=== PATIENT | male | born 1955 | race Caucasian/White ===

== ENCOUNTER → 2017-03-28 | Outpatient (CLI) | payer BC ==
--- NOTE | 2017-03-28 15:33 | RADIOLOGY REPORT (SQ) ---
EXAM DESCRIPTION: CT ABD/PELVIS COMBO COMPLETED DATE/TIME: 03/28/2017 2:35 pm REASON FOR STUDY: HEMATURIA, NEOPLASM BLADDER R31.9 HEMATURIA, UNSPECIFIED D49.4 NEOPLASM OF UNSPE CIFIED BEHAVIOR OF BLADDER COMPARISON: None. TECHNIQUE: CT scan of the abdomen and pelvis performed with and without intravenous contrast, and wi thout oral contrast. Contrasted imaging performed helical scanning technique and dynamic intravenous contrast injection. Images reviewed with lung, soft tissue, and bone windows. Reconstructed coronal a nd sagittal MPR images reviewed. Delayed images for evaluation of the urinary system also acquired. A ll images stored on PACS. All CT scanners at this facility use dose modulation, iterative reconstruction, and/or weight based d osing when appropriate to reduce radiation dose to as low as reasonably achievable (ALARA). [facility]: Dose Right [facility]: CareDose [facility]: Dose Right [facility]: Teradose 4D [facility]: LoLo CONTRAST TYPE AND DOSE: contrast/concentration: Isovue 370.00 mg/ml; Total Contrast Delivered: 100.0 ml; Total Saline Delivered: 72.0 ml RENAL FUNCTION: 0.9 creatinine RADIATION DOSE: Up-to-date CT equipment and radiation dose reduction techniques were employed. CTDIv ol: 15.1 - 17.1 mGy. DLP: 2634 mGy-cm. . LIMITATIONS: None. FINDINGS: NON-CONTRASTED IMAGING: Small nonobstructing right intrarenal calculus. 22 mm calculus in left renal pelvis. Smaller but prominent lower calyceal calculi left kidney. POST-CONTRASTED IMAGING: LOWER CHEST: No significant findings. No nodules or infiltrates. LIVER: Normal size. No masses. No dilated ducts. SPLEEN: Normal size. No focal lesions. PANCREAS: No masses. No significant calcifications. No adjacent inflammation or peripancreatic fluid collections. Pancreatic duct not dilated. GALLBLADDER: Surgically absent. ADRENAL GLANDS: No significant masses or asymmetry. RIGHT KIDNEY AND URETER: No solid masses. An intrarenal calculus as described above. No hydroneph rosis or hydroureter. LEFT KIDNEY AND URETER: No solid masses. Intrarenal calculi as described above, including a 22 mm c alculus in the renal pelvis. No hydronephrosis or hydroureter. AORTA AND VESSELS: No aneurysm. Moderate atherosclerosis. RETROPERITONEUM: No retroperitoneal adenopathy, hemorrhage or masses. BOWEL AND PERITONEAL CAVITY: No masses or inflammatory changes. No free fluid or peritoneal masses. APPENDIX: Not identified. PELVIS: The bladder wall is thickened. ABDOMINAL WALL: No masses. No hernias. BONES: Compression changes at L3 present on lumbar spine CT from 2015. No suspicious lesions. OTHER: No other significant finding. IMPRESSION: 1. Renal calculi as described. 2. Thickening of the wall of the bladder. 3. L3 compression changes that are old. TECHNICAL DOCUMENTATION: JOB ID: [id number] Quality ID # [id number]: Final reports with documentation of one or more dose reduction techniques (e.g., Au tomated exposure control, adjustment of the mA and/or kV according to patient size, use of iterative reconstruction technique) 2010 [employer]- All Rights Reserved
== END ==
LOC: RAD 03-23 07:30
PROVIDERS: ATTEND Urology
DX: R31.9 Hematuria, unspecified (principal); D49.4 Neoplasm of unspecified behavior of bladder; N20.0 Calculus of kidney
CPT/HCPCS: 74178; 82565

== ENCOUNTER → 2017-06-19 | Outpatient (CLI) | payer BC ==
--- NOTE | 2017-06-19 09:07 | RADIOLOGY REPORT (SQ) ---
EXAM DESCRIPTION: CT ABD/PELVIS NO ORAL OR IV COMPLETED DATE/TIME: 06/19/2017 7:53 am REASON FOR STUDY: NEOPLASM OF BLADDER (D49.4) N20.0 CALCULUS OF KIDNEY COMPARISON: CT abdomen pelvis 03/28/2017, 08/21/2012 TECHNIQUE: CT scan of the abdomen and pelvis performed without intravenous or oral contrast. Images reviewed with lung, soft tissue, and bone windows. Reconstructed coronal and sagittal MPR images revi ewed. All images stored on PACS. All CT scanners at this facility use dose modulation, iterative reconstruction, and/or weight based d osing when appropriate to reduce radiation dose to as low as reasonably achievable (ALARA). [facility]: Dose Right [facility]: CareDose [facility]: Dose Right [facility]: Teradose 4D [facility]: Smart [employer] RADIATION DOSE: Up-to-date CT equipment and radiation dose reduction techniques were employed. CTDIv ol: 14.6 mGy. DLP: 806 mGy-cm.mGy. LIMITATIONS: None. FINDINGS: Patient is post percutaneous left renal pelvis stone extraction. There is still a resid ual calculus in the left lower pole kidney, 1.7 cm in size measuring 880 Hounsfield units. A left nephrostomy is present along the lower pole left kidney. The Blanco balloon is dorsal to the l eft lower pole kidney on axial image 41. There is a 3.7 x 2.5 cm hematoma or fluid collection along the Blanco catheter tract just deep to the posterior left abdominal wall. This is best shown on axial image 41. There is a small caliber nephrostomy stent passing from the posterior left flank through the left low er pole kidney, into the left renal pelvis and down the left ureter. The distal tip of this catheter is at the level where the left ureter crosses the iliac vessels. There is a left-sided double-J ureteral stent in place, with the proximal loop in the left upper pole renal collecting system, and the distal loop in the left bladder. No ureteral calculi. No left hyd ronephrosis. Post intervention, a few small air bubbles are seen in the left renal sinus fat and along the nephros robby catheter tract. LOWER CHEST: Minimal basilar atelectasis. Small hiatal hernia. Intrathecal pain pump catheter over the lower thoracic spinal canal NON-CONTRASTED LIVER, SPLEEN, ADRENALS: Evaluation limited by lack of IV contrast. No identified sign ificant masses. PANCREAS: No masses. No peripancreatic inflammatory changes. GALLBLADDER: Surgically absent RIGHT KIDNEY AND URETER: No suspicious masses. Assessment limited by lack of IV contrast. 4 mm left midpole intrarenal nonobstructive stone No hydronephrosis or hydroureter. LEFT KIDNEY AND URETER: As above AORTA AND RETROPERITONEUM: No aneurysm. No retroperitoneal masses or adenopathy. BOWEL AND PERITONEAL CAVITY: No obvious masses or inflammatory changes. No free fluid. APPENDIX: Normal. PELVIS, BLADDER, AND ABDOMINAL WALL:No abnormal masses. No free fluid. Bladder normal. BONES: Greater than 50% compression deformity of L3, stable compared to 03/28/2017 OTHER: No other significant finding. IMPRESSION: Post percutaneous partial left renal stone removal. Blanco catheter along the nephrostom y tract has been pulled back, with the balloon in the posterior pararenal fat as above. COMMENT: Quality ID # [id number]: Final reports with documentation of one or more dose reduction techniques (e.g., Automated exposure control, adjustment of the mA and/or kV according to patient size, use of iterative reconstruction technique) TECHNICAL DOCUMENTATION: JOB ID: [id number] [employer]- All Rights Reserved
== END ==
LOC: RAD 07:36
PROVIDERS: ATTEND Urology
DX: D49.4 Neoplasm of unspecified behavior of bladder (principal)
CPT/HCPCS: 74176

== ENCOUNTER 2017-07-02 15:17 | Inpatient (IN) | payer BC ==
[2017-07-02] MEDS ORDERED: NORMAL SALINE 1000 ML 1,000 ML IV ONE ×2 (15:38→15:46)
[2017-07-02] MEDS ORDERED: METOCLOPRAMIDE HCL INJ/PF 10 MG/2 ML SDV IV ONE (15:38)
[2017-07-02] MEDS ORDERED: HYDROMORPHONE HCL INJ/PF 2 MG/ML AMPULE IV ONE ×2 (15:41→16:26)
--- NOTE | 2017-07-02 15:41 | ER Document Report ---
ED General - General Stated Complaint: LOWER BACK PAIN Time Seen by Provider: 07/02/17 15:44 Mode of Arrival: Medic Information source: Patient Notes: 62 yo male with hx severe L5 back pain since 1999 , opiate dependent per Dr. Bright Kirby , was unable to take his oral 15mg hydrocone 5 times per day because of leg weakness, nausea, dry heaves, shortness of breath, new dx COPD,( has inhalers at home- no oxygen) The only new sx is the dry heaves. was at work. His son called EMS. Since the kidney stones dx. 1 month ago, he has decreased appetite with nausea. Dr. Graham did partial stone removal on 06/19 with stent still in place. No fever. No diarrhea. Dr. Kirby refills the Dilaudid pump every 45 days with hydromorphone. Recent weight loss 240 to 217. PCP: Dr. Noe TRAVEL OUTSIDE OF THE [place] IN LAST 30 DAYS: No - Related Data Allergies/Adverse Reactions: Iodinated Contrast- Oral and IV Dye [IV Dye, Iodine Containing] Allergy ( Verified 05/03/15 11:15) Home Medications: Current Home Medications Albuterol Sulfate [Proair Hfa] 2 puff IH Q4 07/02/17 [History] Duloxetine HCl [Cymbalta] 30 mg PO Q8 07/02/17 [History] Ergocalciferol (Vitamin D2) [Vitamin D2] 50,000 unit PO [id number] 07/02/17 [ History] Esomeprazole Magnesium [Nexium 24Hr] 22.3 mg PO DAILY 07/02/17 [History] Fluticasone/Salmeterol [Advair 250-50 Diskus 28 dose] 1 inh IH DAILYP PRN [History] Hydroxyzine HCl [Atarax 50 mg Tablet] 50 mg PO Q8HP PRN 07/02/17 [History] Ipratropium/Albuterol Sulfate [Combivent Respimat 4 gm Mdi] 2 puff IH Q6HP PRN 07/02/17 [History] Oxycodone HCl/Acetaminophen [Percocet 7.5-325 mg Tablet] 2 tab PO QID 07/02/17 [ History] Pravastatin Sodium [Pravachol] 40 mg PO DAILY 07/02/17 [History] Pregabalin [Lyrica] 150 mg PO Q8 07/02/17 [History] Tamsulosin HCl [Flomax 0.4 mg Cap.sr] 0.4 mg PO DAILY 07/02/17 [History] Past Medical History - General Information source: Patient - Social History Smoking Status: Current Every Day Smoker Frequency of alcohol use: None Drug Abuse: None Lives with: Spouse/Significant other Family History: Reviewed & Not Pertinent - Past Medical History Cardiac Medical History: Reports: Hx Hypercholesterolemia, Hx Heart Murmur Pulmonary Medical History: Reports: Hx Asthma - no recent attacts Renal/ Medical History: Reports: Hx Kidney Stones Musculoskeltal Medical History: Reports Hx Fibromyalgia Psychiatric Medical History: Reports: Hx Depression Past Surgical History: Reports: Hx Cholecystectomy. Denies: Hx Pacemaker - Immunizations Hx Diphtheria, Pertussis, Tetanus Vaccination: Yes - 2010 Review of Systems - Review of Systems Constitutional: No symptoms reported EENT: No symptoms reported Cardiovascular: No symptoms reported Respiratory: See HPI Gastrointestinal: No symptoms reported Genitourinary: No symptoms reported Male Genitourinary: No symptoms reported Musculoskeletal: No symptoms reported Skin: No symptoms reported Hematologic/Lymphatic: No symptoms reported Neurological/Psychological: No symptoms reported Physical Exam - Vital signs Vitals: Resp Pulse Ox 20 92 07/02/17 16:25 07/02/17 16:25 Interpretation: Normal - General General appearance: Appears well, Alert - HEENT Head: Normocephalic, Atraumatic Eyes: Normal Conjunctiva: Normal Pupils: PERRL Tympanic membrane: Normal Mucous membranes: Dry Pharynx: Erythema Neck: Supple. No: Lymphadenopathy - Respiratory Respiratory status: No respiratory distress Chest status: Nontender Breath sounds: Productive cough - swallowing it, Rhonchi - bilateral Chest palpation: Normal - Cardiovascular Rhythm: Regular Heart sounds: Normal auscultation Murmur: No - Abdominal Inspection: Normal Distension: No distension Bowel sounds: Normal Tenderness: Nontender. No: Tender Organomegaly: No organomegaly - Back Back: Normal, Nontender - Extremities General upper extremity: Normal inspection, Nontender, Normal color, Normal ROM , Normal temperature General lower extremity: Normal inspection, Nontender, Normal color, Normal ROM , Normal temperature, Normal weight bearing. No: Alden's sign - Neurological Neuro grossly intact: Yes Cognition: Normal Orientation: AAOx4 [place] Coma Scale Eye Opening: Spontaneous [place] Coma Scale Verbal: Oriented [place] Coma Scale Motor: Obeys Commands [place] Coma Scale Total: 15 Speech: Normal Motor strength normal: LUE, RUE, LLE, RLE Sensory: Normal - Psychological Associated symptoms: Normal affect, Normal mood - Skin Skin Temperature: Warm Skin Moisture: Dry Skin Color: Normal Skin irregularity: negative: Rash Course - Re-evaluation Re-evalutation: 07/02/17 16:59 Patient is coughing I did take the oxygen off because he does not wear at home and his pulse ox dropped to 88%. I ordered a DuoNeb nebulizer and a chest x- ray. His white count is mildly elevated with a mild shift. Chemistry is normal. He has not voided yet. The IV is infusing. I also ordered Solu- Medrol. His pain level is down to a tolerable level after 3 mg of Dilaudid. 07/02/17 17:48 His chest x-ray shows right upper lobe pneumonia I ordered rocephin IV, urine pending, also levofloxacin 750 mg po. 07/02/17 17:48 07/02/17 17:55 Page Cristóbal Tomlinson MD who is his primary care doctor for admission he will admit to [facility] 07/02/17 18:10 Cristóbal Tomlinson MD called because he was looking at the pulse ox is in the chart that did not have anything lower than 97% and I guarantee that I had in th body of my note that his pulse ox dropped to 88% while the oxygen was off. BG is being drawn at this time. - Vital Signs Vital signs: Temp Pulse Resp BP Pulse Ox 100.1 F 87 20 137/61 H 98 07/03/17 11:22 07/03/17 11:22 07/03/17 11:22 07/03/17 11:22 07/03/17 11:22 - Laboratory Result Diagrams: 07/03/17 06:40 07/03/17 06:40 Laboratory results interpreted by me: 07/02/17 07/02/17 07/02/17 16:15 16:15 17:48 WBC 11.7 H Hgb 12.5 L MCH 26.6 L RDW 14.7 H Plt Count 145 L Seg Neuts % (Manual) 85 H Band Neutrophils % 1 L Lymphocytes % (Manual) 7 L Abs Neuts (Manual) 10.1 H Carbonic Acid ABG pCO2 ABG HCO3 ABG Total CO2 Sodium 145.7 H Carbon Dioxide 34 H Glucose 112 H Direct Bilirubin 0.5 H Total Protein 6.1 L Urine Protein 100 H Urine Ketones TRACE H Urine Blood LARGE H Urine Urobilinogen 2.0 H Ur Leukocyte Esterase LARGE H Urine Ascorbic Acid 40 H 07/02/17 18:18 WBC Hgb MCH RDW Plt Count Seg Neuts % (Manual) Band Neutrophils % Lymphocytes % (Manual) Abs Neuts (Manual) Carbonic Acid 1.51 H ABG pCO2 50.2 H ABG HCO3 31.6 H ABG Total CO2 33.2 H Sodium Carbon Dioxide Glucose Direct Bilirubin Total Protein Urine Protein Urine Ketones Urine Blood Urine Urobilinogen Ur Leukocyte Esterase Urine Ascorbic Acid Discharge - Discharge Clinical Impression: Hypoxia, RUL pneumonia, Dehydration Chronic back pain Qualifiers: Back pain location: low back pain Back pain laterality: midline Sciatica presence: without sciatica Qualified Code(s): M54.5 - Low back pain Condition: Stable Disposition: ADMITTED INPATIENT Admitting Provider: Davi Unit Admitted: [facility]
[2017-07-02] MEDS ORDERED: KETOROLAC TROMETHAMINE INJ/PF 30 MG/1 ML SDV IV ONE (16:26)
[2017-07-02 16:36] LABS: HEMATOCRIT 38.1 % (37.9-51.0); HEMOGLOBIN 12.5 g/dL (13.5-17.0); HGB HCT DIFFERENCE -0.6; MEAN CORPUSCULAR HEMOGLOBIN 26.6 pg (27.0-33.4); MEAN CORPUSCULAR HGB CONC 32.9 g/dL (32.0-36.0); MEAN CORPUSCULAR VOLUME 81 fl (80-97); RED CELL DISTRIBUTION WIDTH 14.7 % (11.5-14.0); WHITE BLOOD COUNT 11.7 10^3/uL (4.0-10.5)
[2017-07-02 16:48] LABS: BAND NEUTROPHILS % (MANUAL) 1 % (3-5); BASOPHILS % (MANUAL) 0 % (0-2); EOSINOPHILS % (MANUAL) 0 % (0-6); LYMPHOCYTES % (MANUAL) 7 % (13-45); TOTAL CELLS COUNTED 100
[2017-07-02 16:49] LABS: HYPOCHROMASIA SLIGHT; OVALOCYTES SLIGHT; POIKILOCYTOSIS SLIGHT
[2017-07-02 16:50] LABS: PLATELET CLUMPS PRESENT
[2017-07-02 16:55] LABS: PROTHROMBIN TIME 13.4 SEC (11.4-15.4)
[2017-07-02 16:56] LABS: ALANINE AMINOTRANSFERASE 30 U/L (21-72); ALBUMIN 3.7 g/dL (3.5-5.0); ALKALINE PHOSPHATASE 96 U/L (38-126); ANION GAP 11 (5-19); ASPARTATE AMINO TRANSFERASE 29 U/L (17-59); BILIRUBIN,DIRECT 0.5 mg/dL (0.0-0.4); BILIRUBIN,TOTAL 0.7 mg/dL (0.2-1.3); BLOOD UREA NITROGEN 19 mg/dL (7-20); CALCIUM 8.4 mg/dL (8.4-10.2); CARBON DIOXIDE 34 mmol/L (22-30); CHLORIDE 101 mmol/L (98-107); CREATININE RESULT 0.92 mg/dL (0.52-1.25); GLUCOSE 112 mg/dL (75-110); POTASSIUM 3.6 mmol/L (3.6-5.0); SODIUM 145.7 mmol/L (137-145); TOTAL PROTEIN 6.1 g/dL (6.3-8.2)
[2017-07-02 16:56] LABS: PARTIAL THROMBOPLASTIN TIME 35.5 SEC (23.5-35.8)
[2017-07-02] MEDS ORDERED: BUDESONIDE NEB 0.5 MG/2 ML AMPUL NEB ONE (16:56)
[2017-07-02] MEDS ORDERED: IPRATROPIUM/ALBUTEROL 0.5-2.5 MG/3 ML AMPUL NEB ONE ×2 (16:57→16:58)
[2017-07-02] MEDS ORDERED: METHYLPREDNISOLONE INJ 125 MG/2 ML SDV IV ONE (16:58)
--- NOTE | 2017-07-02 17:30 | RADIOLOGY REPORT (SQ) ---
EXAM DESCRIPTION: CHEST SINGLE VIEW COMPLETED DATE/TIME: 07/02/2017 5:18 pm REASON FOR STUDY: cough, hypoxia COMPARISON: 04/25/2016 EXAM PARAMETERS: NUMBER OF VIEWS: One view. TECHNIQUE: Single frontal radiographic view of the chest acquired. RADIATION DOSE: NA LIMITATIONS: None. FINDINGS: LUNGS AND PLEURA: Faintly defined opacification in the right upper lobe just above the min or fissure. MEDIASTINUM AND HILAR STRUCTURES: No masses. Contour normal. HEART AND VASCULAR STRUCTURES: Heart normal in size. Normal vasculature. BONES: No acute findings. HARDWARE: None in the chest. OTHER: No other significant finding. IMPRESSION: Cannot exclude right upper lobe pneumonia. TECHNICAL DOCUMENTATION: JOB ID: [id number]
[2017-07-02] MEDS ORDERED: CEFTRIAXONE 1 GM/D5W RTU 1 GM/50 ML RTUPB IV ONE (17:47)
--- NOTE | 2017-07-02 17:51 | RADIOLOGY REPORT (SQ) ---
EXAM DESCRIPTION: CT ABD/PELVIS NO ORAL OR IV COMPLETED DATE/TIME: 07/02/2017 5:26 pm REASON FOR STUDY: central low back pain COMPARISON: 06/19/2017 TECHNIQUE: CT scan of the abdomen and pelvis performed without intravenous or oral contrast. Images reviewed with lung, soft tissue, and bone windows. Reconstructed coronal and sagittal MPR images revi ewed. All images stored on PACS. All CT scanners at this facility use dose modulation, iterative reconstruction, and/or weight based d osing when appropriate to reduce radiation dose to as low as reasonably achievable (ALARA). [facility]: Dose Right [facility]: CareDose [facility]: Dose Right [facility]: Teradose 4D [facility]: [employer] RADIATION DOSE: Up-to-date CT equipment and radiation dose reduction techniques were employed. CTDIv ol: 15.8 mGy. DLP: 874 mGy-cm.mGy. LIMITATIONS: None. FINDINGS: LOWER CHEST: No significant findings. No nodules or infiltrates. NON-CONTRASTED LIVER, SPLEEN, ADRENALS: Evaluation limited by lack of IV contrast. No identified sign ificant masses. PANCREAS: No masses. No peripancreatic inflammatory changes. GALLBLADDER: Surgically absent. RIGHT KIDNEY AND URETER: No suspicious masses. Assessment limited by lack of IV contrast. There is a 5 mm nonobstructing intrarenal calcification. No hydronephrosis or hydroureter. LEFT KIDNEY AND URETER: No suspicious masses. Assessment limited by lack of IV contrast. There is a large calculus renal pelvis. Mild hydronephrosis is present. AORTA AND RETROPERITONEUM: No aneurysm. No retroperitoneal masses or adenopathy. BOWEL AND PERITONEAL CAVITY: No obvious masses or inflammatory changes. No free fluid. APPENDIX: Not identified. PELVIS, BLADDER, AND ABDOMINAL WALL:A tiny calcification is present posterior aspect of the bladder o n image 74. This was present on the prior study. BONES: Compression changes at L3 that are not new. OTHER: Left percutaneous nephrostomy catheter. Left double pigtail ureteral stent. IMPRESSION: Left percutaneous nephrostomy and left ureteral stent with a prominent pelvic calcificat ion and with mild hydronephrosis. COMMENT: Quality ID # [id number]: Final reports with documentation of one or more dose reduction techniques (e.g., Automated exposure control, adjustment of the mA and/or kV according to patient size, use of iterative reconstruction technique) TECHNICAL DOCUMENTATION: JOB ID: [id number] [employer]- All Rights Reserved
[2017-07-02 18:10] LABS: APPEARANCE,URINE CLOUDY; BILIRUBIN,URINE NEGATIVE (NEGATIVE); GLUCOSE, URINE NEGATIVE (NEGATIVE); KETONES,URINE TRACE mg/dL (NEGATIVE); LEUKOCYTE ESTERASE,URINE LARGE (NEGATIVE); NITRITE,URINE NEGATIVE (NEGATIVE); PROTEIN,URINE 100 mg/dL (NEGATIVE); URINE SPECIFIC GRAVITY 1.013
[2017-07-02] MEDS ORDERED: NORMAL SALINE 1000 ML 1,000 ML IV PRN (18:51)
[2017-07-02] MEDS ORDERED: ONDANSETRON HCL INJ/PF 4 MG/2 ML SDV IV PRN (19:01)
[2017-07-02 19:04] LABS: ARTERIAL BLOOD BASE EXCESS 6.1 mmol/L; ARTERIAL BLOOD O2 SATURATION 96.2 % (94-98)
--- NOTE | 2017-07-02 19:13 | PDOC H&P ---
History of Present Illness Admission Date/PCP: 07/02/17 18:29 ALLAN PRICE, Patient complains of: cough and sob History of Present Illness: ALLAN CLINTON is a 62 year old male Past Medical History Cardiac Medical History: Reports: Hyperlipidema, Hypertension, Heart Murmur Denies: Coronary Artery Disease, Myocardial Infarction Pulmonary Medical History: Reports: Chronic Obstructive Pulmonary Disease (COPD) Denies: Bronchitis, Pneumonia, Tuberculosis Neurological Medical History: Denies: Seizures Endocrine Medical History: Denies: Diabetes Mellitus Type 1, Diabetes Mellitus Type 2 Musculoskeltal Medical History: Reports: Arthritis Psychiatric Medical History: Reports: Depression Denies: Bipolar Disorder, Post Traumatic Stress Disorder Hematology: Denies: Anemia Past Surgical History Past Surgical History: Reports: Cholecystectomy Denies: Pacemaker Social History Lives with: Spouse/Significant other Smoking Status: Current Every Day Smoker Frequency of Alcohol Use: Occasional Hx Recreational Drug Use: No Drugs: None Hx Prescription Drug Abuse: No Family History Family History: Reviewed & Not Pertinent Parental Family History Reviewed: Yes Children Family History Reviewed: Yes Sibling(s) Family History Reviewed.: Yes Medication/Allergy Allergies/Adverse Reactions: Iodinated Contrast- Oral and IV Dye [IV Dye, Iodine Containing] Allergy ( Verified 05/03/15 11:15) Review of Systems All systems: as per [facility] Physical Exam Vital Signs: Temp Pulse Resp BP Pulse Ox 98.9 F 16 100/75 97 07/02/17 18:29 07/02/17 17:43 07/02/17 17:43 07/02/17 17:43 General appearance: PRESENT: mild distress Head exam: PRESENT: atraumatic Eye exam: PRESENT: conjunctival injection Neck exam: ABSENT: carotid bruit Respiratory exam: PRESENT: prolonged expiratory phas, rhonchi, wheezes Cardiovascular exam: PRESENT: RRR, +S1, +S2 GI/Abdominal exam: PRESENT: normal bowel sounds, soft Extremities exam: PRESENT: tenderness Musculoskeletal exam: PRESENT: tenderness Neurological exam: PRESENT: awake Results Impressions: Abdomen/Pelvis CT 07/02/17 15:43 IMPRESSION: Left percutaneous nephrostomy and left ureteral stent with a prominent pelvic calcification and with mild hydronephrosis. Chest X-Ray 07/02/17 16:57 IMPRESSION: Cannot exclude right upper lobe pneumonia. Assessment & Plan - Diagnosis (1) COPD (chronic obstructive pulmonary disease) Qualifiers: COPD type: COPD with acute exacerbation Is this a current diagnosis for this admission?: Yes Plan: steroids, nebs (2) Pneumonia Qualifiers: Pneumonia type: due to unspecified organism Laterality: right Lung location: upper lobe of lung Qualified Code(s): J18.1 - Lobar pneumonia, unspecified organism Is this a current diagnosis for this admission?: Yes Plan: antibiotics (3) Nephrolithiasis Is this a current diagnosis for this admission?: Yes Plan: iv hydration (4) Chronic back pain Qualifiers: Back pain location: low back pain Back pain laterality: midline Sciatica presence: without sciatica Qualified Code(s): M54.5 - Low back pain; G89.29 - Other chronic pain; G89.29 - Other chronic pain Is this a current diagnosis for this admission?: Yes Plan: pain meds (5) HTN (hypertension) Is this a current diagnosis for this admission?: Yes Plan: bp meds
[2017-07-02] MEDS ORDERED: ENOXAPARIN SODIUM INJ 40 MG/0.4 ML DISP.SYRIN SUBCUT ONE (20:00)
[2017-07-02] MEDS: IPRATROPIUM/ALBUTEROL 0.5-2.5 MG/3 ML AMPUL NEB SCH (21:06)
[2017-07-02] MEDS: HYDROMORPHONE HCL INJ/PF 2 MG/ML AMPULE IV PRN (21:47)
[2017-07-02] MEDS: GUAIFENESIN 600 MG TABLET.SA PO SCH (21:48)
[2017-07-02] MEDS: FAMOTIDINE 20 MG TABLET PO SCH (21:48)
[2017-07-03] MEDS: METHYLPREDNISOLONE INJ 40 MG/1 ML SDV IV SCH ×4 (00:27→18:18)
[2017-07-03] MEDS: HYDROMORPHONE HCL INJ/PF 2 MG/ML AMPULE IV PRN ×5 (02:17→20:55)
[2017-07-03 07:09] LABS: HEMATOCRIT 34.3 % (37.9-51.0); HEMOGLOBIN 11.2 g/dL (13.5-17.0); HGB HCT DIFFERENCE -0.7; MEAN CORPUSCULAR HEMOGLOBIN 26.8 pg (27.0-33.4); MEAN CORPUSCULAR HGB CONC 32.7 g/dL (32.0-36.0); MEAN CORPUSCULAR VOLUME 82 fl (80-97); RED BLOOD COUNT 4.19 10^6/uL (4.35-5.55); RED CELL DISTRIBUTION WIDTH 14.9 % (11.5-14.0); WHITE BLOOD COUNT 13.2 10^3/uL (4.0-10.5)
[2017-07-03 07:28] LABS: ALANINE AMINOTRANSFERASE 37 U/L (21-72); ALKALINE PHOSPHATASE 83 U/L (38-126); ANION GAP 9 (5-19); ASPARTATE AMINO TRANSFERASE 47 U/L (17-59); BILIRUBIN,DIRECT 0.5 mg/dL (0.0-0.4); BILIRUBIN,TOTAL 0.6 mg/dL (0.2-1.3); BLOOD UREA NITROGEN 20 mg/dL (7-20); CALCIUM 8.1 mg/dL (8.4-10.2); CARBON DIOXIDE 31 mmol/L (22-30); CHLORIDE 105 mmol/L (98-107); CREATININE RESULT 0.86 mg/dL (0.52-1.25); GLUCOSE 119 mg/dL (75-110); POTASSIUM 3.2 mmol/L (3.6-5.0); SODIUM 145.2 mmol/L (137-145); TOTAL PROTEIN 5.3 g/dL (6.3-8.2)
[2017-07-03 08:00] LABS: BAND NEUTROPHILS % (MANUAL) 1 % (3-5); BASOPHILS % (MANUAL) 0 % (0-2); EOSINOPHILS % (MANUAL) 0 % (0-6); LYMPHOCYTES % (MANUAL) 3 % (13-45); OVALOCYTES SLIGHT; POIKILOCYTOSIS SLIGHT; TOTAL CELLS COUNTED 100; TOXIC GRANULATION SLIGHT; TOXIC VACUOLATION PRESENT
[2017-07-03] MEDS: IPRATROPIUM/ALBUTEROL 0.5-2.5 MG/3 ML AMPUL NEB SCH ×4 (08:32→21:53)
[2017-07-03] MEDS ORDERED: NORMAL SALINE 1000 ML 1,000 ML IV PRN (08:46)
--- NOTE | 2017-07-03 08:50 | PDOC PROGRESS REPORT ---
Subjective Progress Note for:: 07/03/17 Subjective:: The patient is complaining of shortness of breath. He has a productive cough. He is very anxious. He will keep his oxygen on. Physical Exam Vital Signs: Temp Pulse Resp BP Pulse Ox 99.1 F 79 20 148/77 H 94 07/03/17 07:11 07/03/17 08:32 07/03/17 08:32 07/03/17 07:11 07/03/17 08:32 Intake & Output 07/02/17 07/03/17 07/04/17 06:59 06:59 06:59 Intake Total 220 Output Total 0 Balance 220 Weight 92.8 kg General appearance: PRESENT: mild distress Head exam: PRESENT: atraumatic Eye exam: PRESENT: conjunctival injection Neck exam: ABSENT: carotid bruit Respiratory exam: PRESENT: rhonchi, wheezes Cardiovascular exam: PRESENT: RRR, +S1, +S2 Pulses: PRESENT: +1 pedal pulses bilateral GI/Abdominal exam: PRESENT: normal bowel sounds, soft Extremities exam: PRESENT: full ROM Musculoskeletal exam: PRESENT: ambulatory Neurological exam: PRESENT: alert, awake Skin exam: PRESENT: other Results Laboratory Results: 07/03/17 06:40 07/03/17 06:40 07/03/17 07/03/17 06:40 06:40 WBC 13.2 H RBC 4.19 L Hgb 11.2 L Hct 34.3 L MCV 82 MCH 26.8 L MCHC 32.7 RDW 14.9 H Plt Count 132 L Seg Neutrophils % Not Reportable Lymphocytes % Not Reportable Monocytes % Not Reportable Eosinophils % Not Reportable Basophils % Not Reportable Absolute Neutrophils Not Reportable Absolute Lymphocytes Not Reportable Absolute Monocytes Not Reportable Absolute Eosinophils Not Reportable Absolute Basophils Not Reportable Sodium 145.2 H Potassium 3.2 L Chloride 105 Carbon Dioxide 31 H Anion Gap 9 BUN 20 Creatinine 0.86 Est GFR ( Amer) > 60 Est GFR (Non-Af Amer) > 60 Glucose 119 H Calcium 8.1 L Total Bilirubin 0.6 AST 47 ALT 37 Alkaline Phosphatase 83 Total Protein 5.3 L Albumin 3.0 L Impressions: Abdomen/Pelvis CT 07/02/17 15:43 IMPRESSION: Left percutaneous nephrostomy and left ureteral stent with a prominent pelvic calcification and with mild hydronephrosis. Chest X-Ray 07/02/17 16:57 IMPRESSION: Cannot exclude right upper lobe pneumonia. Assessment & Plan - Diagnosis (1) COPD (chronic obstructive pulmonary disease) Qualifiers: COPD type: COPD with acute exacerbation Is this a current diagnosis for this admission?: Yes Plan: steroids, nebs (2) Pneumonia Qualifiers: Pneumonia type: due to unspecified organism Laterality: right Lung location: upper lobe of lung Qualified Code(s): J18.1 - Lobar pneumonia, unspecified organism Is this a current diagnosis for this admission?: Yes Plan: antibiotics (3) Nephrolithiasis Is this a current diagnosis for this admission?: Yes Plan: iv hydration (4) Chronic back pain Qualifiers: Back pain location: low back pain Back pain laterality: midline Sciatica presence: without sciatica Qualified Code(s): M54.5 - Low back pain; G89.29 - Other chronic pain; G89.29 - Other chronic pain Is this a current diagnosis for this admission?: Yes Plan: pain meds (5) HTN (hypertension) Is this a current diagnosis for this admission?: Yes Plan: bp meds
[2017-07-03] MEDS: ENOXAPARIN SODIUM INJ 40 MG/0.4 ML DISP.SYRIN SUBCUT SCH (09:25)
[2017-07-03] MEDS: FAMOTIDINE 20 MG TABLET PO SCH ×2 (09:25→21:03)
[2017-07-03] MEDS: GUAIFENESIN 600 MG TABLET.SA PO SCH ×2 (09:25→21:03)
[2017-07-03] MEDS: LEVOFLOXACIN 500 MG/D5W RTU 500 MG/100 ML RTUPB IV SCH (09:26)
[2017-07-03] MEDS: LORAZEPAM INJ 2 MG/1 ML VIAL IV PRN ×3 (10:54→20:55)
[2017-07-03] MEDS: PREGABALIN 75 MG CAPSULE PO SCH ×2 (13:21→21:03)
[2017-07-03] MEDS: DULOXETINE HCL 30 MG CAPSULE.DR PO SCH ×2 (13:21→21:03)
[2017-07-03 16:12] LABS: APPEARANCE,URINE CLOUDY; BILIRUBIN,URINE NEGATIVE (NEGATIVE); GLUCOSE, URINE NEGATIVE (NEGATIVE); KETONES,URINE NEGATIVE (NEGATIVE); LEUKOCYTE ESTERASE,URINE MODERATE (NEGATIVE); NITRITE,URINE NEGATIVE (NEGATIVE); PROTEIN,URINE 100 mg/dL (NEGATIVE); URINE SPECIFIC GRAVITY 1.013; UROBILINOGEN,URINE NEGATIVE mg/dL (<2.0)
[2017-07-03] MEDS: TAMSULOSIN HCL 0.4 MG CAP.SR.24H PO SCH (18:18)
[2017-07-03] MEDS: CEFTRIAXONE 1 GM/D5W RTU 1 GM/50 ML RTUPB IV SCH (18:18)
[2017-07-04] MEDS: METHYLPREDNISOLONE INJ 40 MG/1 ML SDV IV SCH ×4 (00:58→18:02)
[2017-07-04] MEDS: HYDROMORPHONE HCL INJ/PF 2 MG/ML AMPULE IV PRN (05:32)
[2017-07-04] MEDS: DULOXETINE HCL 30 MG CAPSULE.DR PO SCH ×3 (05:32→22:16)
[2017-07-04] MEDS: LORAZEPAM INJ 2 MG/1 ML VIAL IV PRN (05:33)
[2017-07-04 06:16] LABS: HEMATOCRIT 33.1 % (37.9-51.0); HGB HCT DIFFERENCE -0.1; MEAN CORPUSCULAR HEMOGLOBIN 26.9 pg (27.0-33.4); MEAN CORPUSCULAR HGB CONC 33.1 g/dL (32.0-36.0); MEAN CORPUSCULAR VOLUME 81 fl (80-97); RED BLOOD COUNT 4.07 10^6/uL (4.35-5.55); RED CELL DISTRIBUTION WIDTH 14.9 % (11.5-14.0); WHITE BLOOD COUNT 14.6 10^3/uL (4.0-10.5)
[2017-07-04 06:27] LABS: ANION GAP 8 (5-19); BLOOD UREA NITROGEN 23 mg/dL (7-20); CARBON DIOXIDE 30 mmol/L (22-30); CHLORIDE 108 mmol/L (98-107); CREATININE RESULT 0.88 mg/dL (0.52-1.25); GLUCOSE 100 mg/dL (75-110); MAGNESIUM 2.3 mg/dL (1.6-2.3); POTASSIUM 3.5 mmol/L (3.6-5.0); SODIUM 146.1 mmol/L (137-145)
[2017-07-04 06:35] LABS: BASOPHILS % (MANUAL) 0 % (0-2); EOSINOPHILS % (MANUAL) 0 % (0-6); LYMPHOCYTES % (MANUAL) 6 % (13-45); TOTAL CELLS COUNTED 100
[2017-07-04 06:36] LABS: ANISOCYTOSIS SLIGHT; POLYCHROMASIA SLIGHT
[2017-07-04] MEDS: PREGABALIN 75 MG CAPSULE PO SCH ×3 (06:39→22:15)
[2017-07-04] MEDS: IPRATROPIUM/ALBUTEROL 0.5-2.5 MG/3 ML AMPUL NEB SCH ×4 (07:37→19:40)
--- NOTE | 2017-07-04 08:35 | PDOC PROGRESS REPORT ---
Subjective Progress Note for:: 07/04/17 Subjective:: The patient states to feel much better. His cough has improved. He is more awake and oriented. His nausea has improved. He appears to be very anxious Physical Exam Vital Signs: Temp Pulse Resp BP Pulse Ox 98.5 F 93 18 148/73 H 97 07/04/17 07:32 07/04/17 07:38 07/04/17 07:38 07/04/17 07:32 07/04/17 07:38 Intake & Output 07/03/17 07/04/17 07/05/17 06:59 06:59 06:59 Intake Total 1095 1515 Output Total 0 660 Balance 1095 855 Weight 92.8 kg 91.6 kg General appearance: PRESENT: mild distress Head exam: PRESENT: atraumatic Eye exam: PRESENT: conjunctival injection Neck exam: ABSENT: carotid bruit Respiratory exam: PRESENT: rhonchi. ABSENT: wheezes Cardiovascular exam: PRESENT: RRR, +S1, +S2 Pulses: PRESENT: +1 pedal pulses bilateral GI/Abdominal exam: PRESENT: normal bowel sounds, soft Extremities exam: PRESENT: full ROM Musculoskeletal exam: PRESENT: ambulatory Neurological exam: PRESENT: alert, awake, oriented to person, oriented to place , oriented to time Results Laboratory Results: 07/04/17 05:23 07/04/17 05:23 07/03/17 07/04/17 07/04/17 15:45 05:23 05:23 WBC 14.6 H RBC 4.07 L Hgb 11.0 L Hct 33.1 L MCV 81 MCH 26.9 L MCHC 33.1 RDW 14.9 H Plt Count 145 L Seg Neutrophils % Not Reportable Lymphocytes % Not Reportable Monocytes % Not Reportable Eosinophils % Not Reportable Basophils % Not Reportable Absolute Neutrophils Not Reportable Absolute Lymphocytes Not Reportable Absolute Monocytes Not Reportable Absolute Eosinophils Not Reportable Absolute Basophils Not Reportable Sodium 146.1 H Potassium 3.5 L Chloride 108 H Carbon Dioxide 30 Anion Gap 8 BUN 23 H Creatinine 0.88 Est GFR ( Amer) > 60 Est GFR (Non-Af Amer) > 60 Glucose 100 Calcium 8.0 L Magnesium 2.3 Urine Color RED Urine Appearance CLOUDY Urine pH 6.0 Ur Specific [place] 1.013 Urine Protein 100 H Urine Glucose (UA) NEGATIVE Urine Ketones NEGATIVE Urine Blood LARGE H Urine Nitrite NEGATIVE Ur Leukocyte Esterase MODERATE H Urine WBC (Auto) >182 Urine RBC (Auto) >182 Impressions: Abdomen/Pelvis CT 07/02/17 15:43 IMPRESSION: Left percutaneous nephrostomy and left ureteral stent with a prominent pelvic calcification and with mild hydronephrosis. Chest X-Ray 07/02/17 16:57 IMPRESSION: Cannot exclude right upper lobe pneumonia. Assessment & Plan - Diagnosis (1) COPD (chronic obstructive pulmonary disease) Qualifiers: COPD type: COPD with acute exacerbation Is this a current diagnosis for this admission?: Yes Plan: steroids, nebs (2) Pneumonia Qualifiers: Pneumonia type: due to unspecified organism Laterality: right Lung location: upper lobe of lung Qualified Code(s): J18.1 - Lobar pneumonia, unspecified organism Is this a current diagnosis for this admission?: Yes Plan: antibiotics (3) Nephrolithiasis Is this a current diagnosis for this admission?: Yes Plan: iv hydration (4) Chronic back pain Qualifiers: Back pain location: low back pain Back pain laterality: midline Sciatica presence: without sciatica Qualified Code(s): M54.5 - Low back pain; G89.29 - Other chronic pain; G89.29 - Other chronic pain Is this a current diagnosis for this admission?: Yes Plan: pain meds (5) HTN (hypertension) Is this a current diagnosis for this admission?: Yes Plan: bp meds (6) Bacteremia Is this a current diagnosis for this admission?: Yes Plan: Most probably gram-positive cocci in chains (7) Gram-positive bacteremia Is this a current diagnosis for this admission?: Yes Plan: Continue current IV antibiotics
[2017-07-04] MEDS ORDERED: LORAZEPAM 0.5 MG TABLET PO PRN (08:36)
[2017-07-04] MEDS ORDERED: ONDANSETRON 4 MG TAB.RAPDIS PO PRN (08:37)
[2017-07-04] MEDS: LEVOFLOXACIN 500 MG/D5W RTU 500 MG/100 ML RTUPB IV SCH (10:24)
[2017-07-04] MEDS: FAMOTIDINE 20 MG TABLET PO SCH ×2 (10:24→22:16)
[2017-07-04] MEDS: GUAIFENESIN 600 MG TABLET.SA PO SCH ×2 (10:24→22:16)
[2017-07-04] MEDS: ENOXAPARIN SODIUM INJ 40 MG/0.4 ML DISP.SYRIN SUBCUT SCH (10:30)
[2017-07-04] MEDS: CEFTRIAXONE 1 GM/D5W RTU 1 GM/50 ML RTUPB IV SCH (18:01)
[2017-07-04] MEDS: TAMSULOSIN HCL 0.4 MG CAP.SR.24H PO SCH (18:02)
[2017-07-05] MEDS: METHYLPREDNISOLONE INJ 40 MG/1 ML SDV IV SCH ×2 (00:58→06:26)
[2017-07-05] MEDS: HYDROMORPHONE HCL INJ/PF 2 MG/ML AMPULE IV PRN (06:25)
[2017-07-05] MEDS: PREGABALIN 75 MG CAPSULE PO SCH ×3 (06:26→23:01)
[2017-07-05] MEDS: DULOXETINE HCL 30 MG CAPSULE.DR PO SCH ×3 (06:26→23:02)
[2017-07-05 06:30] LABS: ABSOLUTE LYMPHOCYTES (AUTO) 0.7 10^3/uL (0.5-4.7); ABSOLUTE MONOCYTES (AUTO) 1.1 10^3/uL (0.1-1.4); ABSOLUTE NEUT (AUTO) 10.9 10^3/uL (1.7-8.2); HEMATOCRIT 32.1 % (37.9-51.0); HEMOGLOBIN 10.6 g/dL (13.5-17.0); HGB HCT DIFFERENCE -0.3; LYMPHOCYTES % (AUTO) 5.6 % (13-45); MEAN CORPUSCULAR HEMOGLOBIN 26.6 pg (27.0-33.4); MEAN CORPUSCULAR HGB CONC 32.9 g/dL (32.0-36.0); MEAN CORPUSCULAR VOLUME 81 fl (80-97); MONOCYTES % (AUTO) 8.6 % (3-13); RED BLOOD COUNT 3.98 10^6/uL (4.35-5.55); RED CELL DISTRIBUTION WIDTH 14.6 % (11.5-14.0); SEGMENTED NEUTROPHILS % (AUTO) 85.8 % (42-78); WHITE BLOOD COUNT 12.7 10^3/uL (4.0-10.5)
[2017-07-05 06:44] LABS: ANION GAP 7 (5-19); BLOOD UREA NITROGEN 24 mg/dL (7-20); CALCIUM 8.1 mg/dL (8.4-10.2); CARBON DIOXIDE 30 mmol/L (22-30); CHLORIDE 104 mmol/L (98-107); CREATININE RESULT 0.76 mg/dL (0.52-1.25); GLUCOSE 117 mg/dL (75-110); POTASSIUM 3.8 mmol/L (3.6-5.0)
[2017-07-05] MEDS: IPRATROPIUM/ALBUTEROL 0.5-2.5 MG/3 ML AMPUL NEB SCH ×4 (08:01→20:45)
--- NOTE | 2017-07-05 08:25 | PDOC PROGRESS REPORT ---
Subjective Progress Note for:: 07/05/17 Subjective:: The patient states to feel better. He was able to get out of bed and into chair and walk to the bathroom. Physical Exam Vital Signs: Temp Pulse Resp BP Pulse Ox 97.8 F 72 15 141/62 H 97 07/05/17 04:05 07/05/17 04:05 07/05/17 04:05 07/05/17 04:05 07/05/17 04:05 Intake & Output 07/04/17 07/05/17 07/06/17 06:59 06:59 06:59 Intake Total 1515 3473 Output Total 660 1125 Balance 855 2348 Weight 91.6 kg 91.4 kg General appearance: PRESENT: mild distress Head exam: PRESENT: atraumatic Eye exam: PRESENT: conjunctiva pink Neck exam: ABSENT: carotid bruit Respiratory exam: PRESENT: rhonchi, wheezes Cardiovascular exam: PRESENT: RRR, +S1, +S2 Pulses: PRESENT: +1 pedal pulses bilateral GI/Abdominal exam: PRESENT: normal bowel sounds, soft Extremities exam: PRESENT: full ROM, tenderness Musculoskeletal exam: PRESENT: tenderness Neurological exam: PRESENT: alert, awake Results Laboratory Results: 07/05/17 06:08 07/05/17 06:08 07/05/17 07/05/17 06:08 06:08 WBC 12.7 H RBC 3.98 L Hgb 10.6 L Hct 32.1 L MCV 81 MCH 26.6 L MCHC 32.9 RDW 14.6 H Plt Count 151 Seg Neutrophils % 85.8 H Lymphocytes % 5.6 L Monocytes % 8.6 Eosinophils % 0.0 Basophils % 0.0 Absolute Neutrophils 10.9 H Absolute Lymphocytes 0.7 Absolute Monocytes 1.1 Absolute Eosinophils 0.0 Absolute Basophils 0.0 Sodium 141.0 Potassium 3.8 Chloride 104 Carbon Dioxide 30 Anion Gap 7 BUN 24 H Creatinine 0.76 Est GFR ( Amer) > 60 Est GFR (Non-Af Amer) > 60 Glucose 117 H Calcium 8.1 L Impressions: Abdomen/Pelvis CT 07/02/17 15:43 IMPRESSION: Left percutaneous nephrostomy and left ureteral stent with a prominent pelvic calcification and with mild hydronephrosis. Chest X-Ray 07/02/17 16:57 IMPRESSION: Cannot exclude right upper lobe pneumonia. Assessment & Plan - Diagnosis (1) COPD (chronic obstructive pulmonary disease) Qualifiers: COPD type: COPD with acute exacerbation Is this a current diagnosis for this admission?: Yes Plan: steroids, nebs. Will switch from IV to p.o. steroids. Will consider slowly weaning off. Will add flutter valve and incentive spirometry (2) Pneumonia Qualifiers: Pneumonia type: due to unspecified organism Laterality: right Lung location: upper lobe of lung Qualified Code(s): J18.1 - Lobar pneumonia, unspecified organism Is this a current diagnosis for this admission?: Yes Plan: antibiotics (3) Nephrolithiasis Is this a current diagnosis for this admission?: Yes Plan: iv hydration (4) Chronic back pain Qualifiers: Back pain location: low back pain Back pain laterality: midline Sciatica presence: without sciatica Qualified Code(s): M54.5 - Low back pain; G89.29 - Other chronic pain; G89.29 - Other chronic pain Is this a current diagnosis for this admission?: Yes Plan: pain meds (5) HTN (hypertension) Is this a current diagnosis for this admission?: Yes Plan: bp meds (6) Bacteremia Is this a current diagnosis for this admission?: Yes Plan: Gram-positive cocci in chains and pairs (7) Gram-positive bacteremia Is this a current diagnosis for this admission?: Yes Plan: Continue current antibiotics
[2017-07-05] MEDS: LEVOFLOXACIN 500 MG TABLET PO SCH (10:11)
[2017-07-05] MEDS: GUAIFENESIN 600 MG TABLET.SA PO SCH ×2 (10:11→23:00)
[2017-07-05] MEDS: FAMOTIDINE 20 MG TABLET PO SCH ×2 (10:11→23:00)
[2017-07-05] MEDS: PREDNISONE 20 MG TABLET PO SCH ×2 (10:12→18:02)
[2017-07-05] MEDS: ENOXAPARIN SODIUM INJ 40 MG/0.4 ML DISP.SYRIN SUBCUT SCH (10:12)
[2017-07-05] MEDS: CEFTRIAXONE 1 GM/D5W RTU 1 GM/50 ML RTUPB IV SCH (18:01)
[2017-07-05] MEDS: TAMSULOSIN HCL 0.4 MG CAP.SR.24H PO SCH (18:02)
[2017-07-06] MEDS: PREGABALIN 75 MG CAPSULE PO SCH ×3 (06:41→22:24)
[2017-07-06] MEDS: DULOXETINE HCL 30 MG CAPSULE.DR PO SCH ×3 (06:42→22:24)
[2017-07-06] MEDS: IPRATROPIUM/ALBUTEROL 0.5-2.5 MG/3 ML AMPUL NEB SCH ×4 (08:56→20:16)
[2017-07-06] MEDS: LEVOFLOXACIN 500 MG TABLET PO SCH (10:54)
[2017-07-06] MEDS: GUAIFENESIN 600 MG TABLET.SA PO SCH ×2 (10:55→22:24)
[2017-07-06] MEDS: PREDNISONE 20 MG TABLET PO SCH ×2 (10:55→21:07)
[2017-07-06] MEDS: FAMOTIDINE 20 MG TABLET PO SCH ×2 (10:55→22:24)
[2017-07-06] MEDS: ENOXAPARIN SODIUM INJ 40 MG/0.4 ML DISP.SYRIN SUBCUT SCH (10:56)
--- NOTE | 2017-07-06 11:47 | PDOC CONSULTATION ---
Consultation Consult Date: 07/04/17 Attending physician:: ALLAN PRICE Consult reason:: Acute on chronic respiratory failure-COPD History of Present Illness Admission Date/PCP: 07/02/17 18:51 ALLAN PRICE, History of Present Illness: 62-year-old male with multiple medical problems has had several procedures procedures related to his kidney stone removal however the 3 days prior to admission became increasingly short of breath and coughing to the point where his brought him to the emergency room he has had found to have a left lower lobe infiltrate. There is no history of hemoptysis his PPD status is negative but the dates unknown he has had some bronchitis as a child but not chronic and no history of asthma. He admits to history exposure to passive smoke as an adult but not really as a child he is self smoked a pack and half a day for 43 years. He is worked in multiple jobs and was exposed to dust,he was not very specific in his responses. (He is currently under a lot of pain medication) he has 1 dog and no recent travel he is unaware of any angina-like chest pain sleeps on one pillow occasional PND occasional nocturnal cough and occasional edema. Her spouse today he has a lot of snoring problems some apnea definitely restless sleep nocturia 3 to four-point times per night unrestful sleep and excessive daytime somnolence. Past Medical History Cardiac Medical History: Reports: Hyperlipidema, Hypertension, Heart Murmur Denies: Coronary Artery Disease, Myocardial Infarction Pulmonary Medical History: Reports: Asthma - no recent attacts, Chronic Obstructive Pulmonary Disease (COPD) Denies: Bronchitis, Pneumonia, Tuberculosis Neurological Medical History: Denies: Seizures Endocrine Medical History: Denies: Diabetes Mellitus Type 1, Diabetes Mellitus Type 2, Hyperthyroidism, Hypothyroidism Renal/ Medical History: Denies: Chronic Kidney Disease, Nephrolithiasis GI Medical History: Reports: Gastroesophageal Reflux Disease Musculoskeltal Medical History: Reports: Other - Disabled long history of back and musculoskeletal problems Psychiatric Medical History: Reports: Depression, Tobacco Dependency, Other - Chronic opioid use with indwelling port for continuous opiate infusions Denies: Bipolar Disorder, Post Traumatic Stress Disorder Hematology: Denies: Anemia Past Surgical History Past Surgical History: Reports: Cholecystectomy Denies: Pacemaker Social History Information Source: Patient, Relative, [facility] Records Lives with: Spouse/Significant other Smoking Status: Current Every Day Smoker Cigarettes Packs Per Day: 2 Number of Years Smokin Last Time Smoked: day admitted Passive smoke exposure as: Both Frequency of Alcohol Use: Occasional Hx Recreational Drug Use: No Drugs: None Hx Prescription Drug Abuse: No Do you have pets?: Yes Have you had any respiratory illnesses as a child?: No Have you been exposed to any sick contacts recently?: No Have you had any recent respiratory illnesses?: No Have you travelled outside of [place] in the past 12 months?: No - Advance Directive Resuscitation Status: Full Code Family History Family History: CAD, Hypertension, Other - Prostate cancer Parental Family History Reviewed: Yes Children Family History Reviewed: Yes Sibling(s) Family History Reviewed.: Yes Medication/Allergy Home Medications: Albuterol Sulfate [Proair HFA] 2 puff IH Q4 07/02/17 Duloxetine HCl [Cymbalta] 30 mg PO Q8 07/02/17 Ergocalciferol (Vitamin D2) [Vitamin D2] 50,000 unit PO [id number] 07/02/17 Esomeprazole Magnesium [Nexium 24Hr] 22.3 mg PO DAILY 07/02/17 Fluticasone/Salmeterol [Advair 250-50 Diskus 28 dose] 1 inh IH DAILYP PRN Hydroxyzine HCl [Atarax 50 mg Tablet] 50 mg PO Q8HP PRN 07/02/17 Ipratropium/Albuterol Sulfate [Combivent Respimat 4 gm Mdi] 2 puff IH Q6HP PRN 07/02/17 Oxycodone HCl/Acetaminophen [Percocet 7.5-325 mg Tablet] 2 tab PO QID 07/02/17 Pravastatin Sodium [Pravachol] 40 mg PO DAILY 07/02/17 Pregabalin [Lyrica] 150 mg PO Q8 07/02/17 Tamsulosin HCl [Flomax 0.4 mg Cap.sr] 0.4 mg PO DAILY 07/02/17 Ampicillin Trihydrate [Princepen 500 mg Capsule] 500 mg PO Q6H #20 capsule 07/10 Docusate Sodium [Colace 100 mg Capsule] 100 mg PO BID #60 capsule 07/10/17 Levofloxacin [Levaquin 500 mg Tablet] 500 mg PO DAILY #7 tablet 07/10/17 Lorazepam [Ativan 0.5 mg Tablet] 0.5 mg PO Q4HP PRN #40 tablet 07/10/17 Prednisone [Deltasone 10 mg Tablet] 10 mg PO BID #60 tablet 07/10/17 Allergies/Adverse Reactions: Iodinated Contrast- Oral and IV Dye [IV Dye, Iodine Containing] Allergy ( Verified 05/03/15 11:15) Review of Systems Constitutional: PRESENT: other - Decline in appetite. ABSENT: fatigue, weight loss Eyes: PRESENT: other - Hard of hearing Cardiovascular: ABSENT: dyspnea on exertion, edema Respiratory: ABSENT: sputum Gastrointestinal: ABSENT: abdominal pain, constipation, dysphagia, heartburn Genitourinary: PRESENT: hematuria, other - Multiple kidney stones Musculoskeletal: ABSENT: back pain Integumentary: PRESENT: erythema Neurological: ABSENT: confusion, weakness Psychiatric: PRESENT: other - Bipolar Hematologic/Lymphatic: PRESENT: easy bruising Allergic/Immunologic: PRESENT: other Physical Exam Vital Signs: Temp Pulse Resp BP Pulse Ox 98.5 F 93 18 148/73 H 97 07/04/17 07:32 07/04/17 07:38 07/04/17 07:38 07/04/17 07:32 07/04/17 07:38 Intake & Output 07/03/17 07/04/17 07/05/17 06:59 06:59 06:59 Intake Total 1095 1515 Output Total 0 660 Balance 1095 855 Weight 92.8 kg 91.6 kg General appearance: PRESENT: no acute distress, disheveled, morbidly obese, well -developed Head exam: PRESENT: atraumatic, normocephalic Eye exam: PRESENT: conjunctiva pale, EOMI Mouth exam: PRESENT: dry mucosa, neck supple, tongue midline Teeth exam: PRESENT: poor dentation Neck exam: ABSENT: carotid bruit, JVD, lymphadenopathy, thyromegaly Respiratory exam: PRESENT: decreased breath sounds, prolonged expiratory phas, rhonchi, symmetrical, unlabored, wheezes. ABSENT: accessory muscle use, chest wall tenderness, clear to auscultation nelsy, crackles, rales, retraction, stridor , tachypnea, other Cardiovascular exam: PRESENT: RRR, +S1, +S2 Pulses: PRESENT: normal radial pulses GI/Abdominal exam: PRESENT: normal bowel sounds, soft, other - Subcutaneous implant right lower quadrant. ABSENT: distended, guarding, mass, organolmegaly , rebound, tenderness Extremities exam: PRESENT: +1 edema, other. ABSENT: calf tenderness, clubbing Musculoskeletal exam: ABSENT: ambulatory, deformity, dislocation, tenderness Neurological exam: PRESENT: altered, awake. ABSENT: alert Psychiatric exam: PRESENT: flat affect Skin exam: PRESENT: dry, mottled, pallor, warm Results Laboratory Results: 07/04/17 05:23 07/04/17 05:23 07/03/17 07/04/17 07/04/17 15:45 05:23 05:23 WBC 14.6 H RBC 4.07 L Hgb 11.0 L Hct 33.1 L MCV 81 MCH 26.9 L MCHC 33.1 RDW 14.9 H Plt Count 145 L Seg Neutrophils % Not Reportable Lymphocytes % Not Reportable Monocytes % Not Reportable Eosinophils % Not Reportable Basophils % Not Reportable Absolute Neutrophils Not Reportable Absolute Lymphocytes Not Reportable Absolute Monocytes Not Reportable Absolute Eosinophils Not Reportable Absolute Basophils Not Reportable Sodium 146.1 H Potassium 3.5 L Chloride 108 H Carbon Dioxide 30 Anion Gap 8 BUN 23 H Creatinine 0.88 Est GFR ( Amer) > 60 Est GFR (Non-Af Amer) > 60 Glucose 100 Calcium 8.0 L Magnesium 2.3 Urine Color RED Urine Appearance CLOUDY Urine pH 6.0 Ur Specific [place] 1.013 Urine Protein 100 H Urine Glucose (UA) NEGATIVE Urine Ketones NEGATIVE Urine Blood LARGE H Urine Nitrite NEGATIVE Ur Leukocyte Esterase MODERATE H Urine WBC (Auto) >182 Urine RBC (Auto) >182 Impressions: Abdomen/Pelvis CT 07/02/17 15:43 IMPRESSION: Left percutaneous nephrostomy and left ureteral stent with a prominent pelvic calcification and with mild hydronephrosis. Chest X-Ray 07/02/17 16:57 IMPRESSION: Cannot exclude right upper lobe pneumonia. Assessment & Plan - Diagnosis (1) Opioid dependence in controlled environment Is this a current diagnosis for this admission?: Yes Plan: Continue supplemental opiates (2) COPD (chronic obstructive pulmonary disease) Qualifiers: COPD type: COPD with acute exacerbation Qualified Code(s): J44.1 - Chronic obstructive pulmonary disease with (acute) exacerbation Is this a current diagnosis for this admission?: Yes Plan: Discontinued Medications Generic Name Dose Route Start Last Admin Trade Name Freq PRN Reason Stop Dose Admin Prednisone 10 mg 07/09/17 10:00 07/10/17 09:15 Deltasone 10 Mg Tablet PO 12/06/17 09:59 10 mg BID MAGDALENA Albuterol/Ipratropium 3 ml 07/02/17 20:00 07/10/17 08:29 Duoneb 3 Ml Ampul NEB 08/01/17 19:59 3 ml [id number] MAGDALENA Guaifenesin 600 mg 07/05/17 22:00 07/10/17 09:15 Mucinex Sr 600 Mg Tablet.Sa PO 08/01/17 21:59 600 mg Q12 MAGDALENA Consider addition of Daliresp (3) Chronic back pain Qualifiers: Back pain location: low back pain Back pain laterality: midline Sciatica presence: without sciatica Qualified Code(s): M54.5 - Low back pain; G89.29 - Other chronic pain; G89.29 - Other chronic pain Is this a current diagnosis for this admission?: Yes (4) Hypoxia Is this a current diagnosis for this admission?: Yes Plan: Supplemental oxygen as needed (5) Nephrolithiasis Is this a current diagnosis for this admission?: Yes (6) Pneumonia Qualifiers: Pneumonia type: due to Pneumococcus Laterality: right Lung location: upper lobe of lung Qualified Code(s): J13 - Pneumonia due to Streptococcus pneumoniae Is this a current diagnosis for this admission?: Yes Plan: Labs- All tests 24 hr 07/04/17 05:23 WBC 14.6 H Seg Neuts % (Manual) 85 H Lymphocytes % (Manual) 6 L Monocytes % (Manual) 9 Eosinophils % (Manual) 0 Basophils % (Manual) 0 Visual coverage for immunity acquired pneumonia radiographic evidence for pneumonia ??? (7) Hypercapnia Is this a current diagnosis for this admission?: Yes Plan: Check ABG in a.m.
--- NOTE | 2017-07-06 11:51 | PDOC PROGRESS REPORT ---
Subjective Progress Note for:: 07/05/17 - Acute on chronic respiratory failure Subjective:: Much more alert and comfortable Physical Exam Vital Signs: Temp Pulse Resp BP Pulse Ox 98.0 F 79 16 148/69 H 100 07/06/17 07:34 07/06/17 07:34 07/06/17 07:34 07/06/17 07:34 07/06/17 07:34 Intake & Output 07/05/17 07/06/17 07/07/17 06:59 06:59 06:59 Intake Total 3473 1474 Output Total 1125 700 Balance 2348 774 Weight 91.4 kg 92 kg General appearance: PRESENT: no acute distress, cooperative, disheveled, obese, well-developed Head exam: PRESENT: atraumatic, normocephalic Eye exam: PRESENT: conjunctiva pale, EOMI Mouth exam: PRESENT: dry mucosa, neck supple, tongue midline Neck exam: ABSENT: carotid bruit, JVD, lymphadenopathy, thyromegaly Respiratory exam: PRESENT: decreased breath sounds, prolonged expiratory phas, rhonchi - Decreased over the last 24 hours, symmetrical, unlabored, wheezes - Decreased over the last 24 hours. ABSENT: accessory muscle use, chest wall tenderness, clear to auscultation nelsy, crackles, rales, retraction, stridor, tachypnea Cardiovascular exam: PRESENT: RRR, +S1, +S2 Pulses: PRESENT: normal radial pulses GI/Abdominal exam: PRESENT: normal bowel sounds, soft. ABSENT: distended, firm , guarding, mass, Ridley's sign, organolmegaly, rebound, rigid, tenderness Gentrourinary exam: ABSENT: ecchymosis, erythema Extremities exam: ABSENT: calf tenderness, clubbing, joint swelling, tenderness Musculoskeletal exam: ABSENT: ambulatory Neurological exam: ABSENT: alert, awake Psychiatric exam: PRESENT: flat affect Skin exam: PRESENT: dry, warm Results Laboratory Results: 07/05/17 06:08 07/05/17 06:08 Impressions: Abdomen/Pelvis CT 07/02/17 15:43 IMPRESSION: Left percutaneous nephrostomy and left ureteral stent with a prominent pelvic calcification and with mild hydronephrosis. Chest X-Ray 07/02/17 16:57 IMPRESSION: Cannot exclude right upper lobe pneumonia. Assessment & Plan - Diagnosis (2) COPD (chronic obstructive pulmonary disease) Qualifiers: COPD type: COPD with acute exacerbation Is this a current diagnosis for this admission?: Yes Plan: Improved continue current therapy (3) Chronic back pain Qualifiers: Back pain location: low back pain Back pain laterality: midline Sciatica presence: without sciatica Qualified Code(s): M54.5 - Low back pain; G89.29 - Other chronic pain; G89.29 - Other chronic pain Is this a current diagnosis for this admission?: Yes (4) Hypoxia Is this a current diagnosis for this admission?: Yes Plan: Continue supplemental oxygen (5) Nephrolithiasis Is this a current diagnosis for this admission?: Yes (6) Pneumonia Qualifiers: Pneumonia type: due to unspecified organism Laterality: right Lung location: upper lobe of lung Qualified Code(s): J18.1 - Lobar pneumonia, unspecified organism Is this a current diagnosis for this admission?: Yes (7) Hypercapnia Is this a current diagnosis for this admission?: Yes Plan: Improved
--- NOTE | 2017-07-06 11:54 | PDOC PROGRESS REPORT ---
Subjective Progress Note for:: 07/06/17 - Acute on chronic respiratory failure exacerbation of COPD Subjective:: sitting in bedside chair alert and comfortable Physical Exam Vital Signs: Temp Pulse Resp BP Pulse Ox 98.0 F 79 16 148/69 H 100 07/06/17 07:34 07/06/17 07:34 07/06/17 07:34 07/06/17 07:34 07/06/17 07:34 Intake & Output 07/05/17 07/06/17 07/07/17 06:59 06:59 06:59 Intake Total 3473 1474 Output Total 1125 700 Balance 2348 774 Weight 91.4 kg 92 kg General appearance: PRESENT: no acute distress, cooperative, disheveled, well- developed Head exam: PRESENT: atraumatic, normocephalic Eye exam: PRESENT: conjunctiva pale, EOMI Mouth exam: PRESENT: dry mucosa, neck supple, tongue midline Neck exam: ABSENT: carotid bruit, JVD, lymphadenopathy, thyromegaly Respiratory exam: PRESENT: decreased breath sounds, prolonged expiratory phas, rhonchi, symmetrical, unlabored. ABSENT: accessory muscle use, chest wall tenderness, clear to auscultation nelsy, crackles, rales, retraction, stridor, tachypnea, wheezes Cardiovascular exam: PRESENT: RRR, +S1, +S2. ABSENT: tachycardia Pulses: PRESENT: normal radial pulses GI/Abdominal exam: PRESENT: normal bowel sounds, soft. ABSENT: distended, guarding, mass, organolmegaly, rebound, tenderness Extremities exam: ABSENT: calf tenderness, clubbing, joint swelling, tenderness Musculoskeletal exam: ABSENT: deformity, dislocation, tenderness Neurological exam: PRESENT: alert, awake Psychiatric exam: PRESENT: normal mood Skin exam: PRESENT: dry, warm Results Laboratory Results: 07/05/17 06:08 07/05/17 06:08 Impressions: Abdomen/Pelvis CT 07/02/17 15:43 IMPRESSION: Left percutaneous nephrostomy and left ureteral stent with a prominent pelvic calcification and with mild hydronephrosis. Chest X-Ray 07/02/17 16:57 IMPRESSION: Cannot exclude right upper lobe pneumonia. Assessment & Plan - Diagnosis (1) Opioid dependence in controlled environment Plan: Continue supplemental opiates (2) COPD (chronic obstructive pulmonary disease) Qualifiers: COPD type: COPD with acute exacerbation Qualified Code(s): J44.1 - Chronic obstructive pulmonary disease with (acute) exacerbation Is this a current diagnosis for this admission?: Yes Plan: Continues to improve no adjustments to therapy at this time (3) Chronic back pain Qualifiers: Back pain location: low back pain Back pain laterality: midline Sciatica presence: without sciatica Qualified Code(s): M54.5 - Low back pain; G89.29 - Other chronic pain; G89.29 - Other chronic pain Is this a current diagnosis for this admission?: Yes (4) Hypoxia Is this a current diagnosis for this admission?: Yes Plan: Decreasing FiO2 requirements:Continue supplemental oxygen as needed (5) Nephrolithiasis Is this a current diagnosis for this admission?: Yes (6) Pneumonia Qualifiers: Pneumonia type: due to Pneumococcus Laterality: right Lung location: upper lobe of lung Qualified Code(s): J13 - Pneumonia due to Streptococcus pneumoniae Is this a current diagnosis for this admission?: Yes Plan: Labs- All tests 24 hr 07/04/17 05:23 WBC 14.6 H Seg Neuts % (Manual) 85 H Lymphocytes % (Manual) 6 L Monocytes % (Manual) 9 Eosinophils % (Manual) 0 Basophils % (Manual) 0 radiographic evidence for pneumonia ???No positive cultures thus far (7) Hypercapnia Is this a current diagnosis for this admission?: Yes Plan: at or near baseline
[2017-07-06] MEDS ORDERED: AMPICILLIN SODIUM 1.5 GM in NORMAL SALINE 100 ML IV SCH (12:30)
--- NOTE | 2017-07-06 13:01 | PDOC PROGRESS REPORT ---
Subjective Progress Note for:: 07/06/17 Subjective:: Patient had positive blood cultures Physical Exam Vital Signs: Temp Pulse Resp BP Pulse Ox 97.8 F 80 17 136/71 H 96 07/06/17 11:30 07/06/17 11:30 07/06/17 11:30 07/06/17 11:30 07/06/17 11:30 Intake & Output 07/05/17 07/06/17 07/07/17 06:59 06:59 06:59 Intake Total 3473 1474 355 Output Total 1125 700 Balance 2348 774 355 Weight 91.4 kg 92 kg Results Laboratory Results: 07/05/17 06:08 07/05/17 06:08 Impressions: Abdomen/Pelvis CT 07/02/17 15:43 IMPRESSION: Left percutaneous nephrostomy and left ureteral stent with a prominent pelvic calcification and with mild hydronephrosis. Chest X-Ray 07/02/17 16:57 IMPRESSION: Cannot exclude right upper lobe pneumonia. Assessment & Plan - Diagnosis (1) Bacteremia Is this a current diagnosis for this admission?: Yes Plan: Showed Entrococcus faecalis group D and his blood culture on 07/02 sensitive to ampicillin but not cephalosporin and clindamycin. Patient currently was on Rocephin and Levaquin which I will DC and put him on ampicillin IV. He will need to continue IV medications for a few days and then I will recheck his cultures and once they are negative we may switch him to oral ampicillin and he may go home at that time. (2) COPD (chronic obstructive pulmonary disease) Qualifiers: COPD type: COPD with acute exacerbation Is this a current diagnosis for this admission?: Yes (4) Pneumonia Qualifiers: Pneumonia type: due to Pneumococcus Laterality: right Lung location: upper lobe of lung Qualified Code(s): J13 - Pneumonia due to Streptococcus pneumoniae Is this a current diagnosis for this admission?: Yes
[2017-07-06] MEDS ORDERED: AMPICILLIN SODIUM 2 GM in NORMAL SALINE 100 ML IV SCH (18:00)
[2017-07-06] MEDS: TAMSULOSIN HCL 0.4 MG CAP.SR.24H PO SCH (21:07)
[2017-07-07] MEDS ORDERED: AMPICILLIN SOD INJ 2 GM VIAL IV PRN (00:25)
[2017-07-07] MEDS: AMPICILLIN SODIUM 2 GM in NORMAL SALINE 100 ML IV SCH ×4 (03:24→21:21)
[2017-07-07] MEDS: DULOXETINE HCL 30 MG CAPSULE.DR PO SCH ×3 (06:21→21:22)
[2017-07-07] MEDS: PREGABALIN 75 MG CAPSULE PO SCH ×3 (06:21→21:21)
[2017-07-07] MEDS: IPRATROPIUM/ALBUTEROL 0.5-2.5 MG/3 ML AMPUL NEB SCH ×4 (08:31→20:21)
[2017-07-07 08:41] LABS: ARTERIAL BLOOD BASE EXCESS 2.7 mmol/L
[2017-07-07 09:31] LABS: ABSOLUTE MONOCYTES (AUTO) 0.7 10^3/uL (0.1-1.4); ABSOLUTE NEUT (AUTO) 6.8 10^3/uL (1.7-8.2); BASOPHILS % (AUTO) 0.1 % (0-2); EOSINOPHILS % (AUTO) 0.2 % (0-6); HEMATOCRIT 33.3 % (37.9-51.0); HEMOGLOBIN 11.1 g/dL (13.5-17.0); LYMPHOCYTES % (AUTO) 11.3 % (13-45); MEAN CORPUSCULAR HEMOGLOBIN 26.9 pg (27.0-33.4); MEAN CORPUSCULAR HGB CONC 33.3 g/dL (32.0-36.0); MEAN CORPUSCULAR VOLUME 81 fl (80-97); MONOCYTES % (AUTO) 8.7 % (3-13); RED BLOOD COUNT 4.12 10^6/uL (4.35-5.55); RED CELL DISTRIBUTION WIDTH 14.8 % (11.5-14.0); SEGMENTED NEUTROPHILS % (AUTO) 79.7 % (42-78); WHITE BLOOD COUNT 8.5 10^3/uL (4.0-10.5)
[2017-07-07 09:34] LABS: ANION GAP 7 (5-19); BLOOD UREA NITROGEN 16 mg/dL (7-20); CALCIUM 8.4 mg/dL (8.4-10.2); CARBON DIOXIDE 30 mmol/L (22-30); CHLORIDE 104 mmol/L (98-107); CREATININE RESULT 0.69 mg/dL (0.52-1.25); GLUCOSE 123 mg/dL (75-110); POTASSIUM 3.7 mmol/L (3.6-5.0); SODIUM 140.5 mmol/L (137-145)
[2017-07-07] MEDS: GUAIFENESIN 600 MG TABLET.SA PO SCH ×2 (09:55→21:22)
[2017-07-07] MEDS: PREDNISONE 20 MG TABLET PO SCH ×2 (09:55→18:25)
[2017-07-07] MEDS: FAMOTIDINE 20 MG TABLET PO SCH ×2 (09:55→21:21)
[2017-07-07] MEDS: ENOXAPARIN SODIUM INJ 40 MG/0.4 ML DISP.SYRIN SUBCUT SCH (11:38)
--- NOTE | 2017-07-07 15:39 | PDOC PROGRESS REPORT ---
Subjective Progress Note for:: 07/07/17 Subjective:: Patient had positive blood cultures Physical Exam Vital Signs: Temp Pulse Resp BP Pulse Ox 97.7 F 77 20 144/64 H 93 07/07/17 11:49 07/07/17 11:49 07/07/17 11:49 07/07/17 11:49 07/07/17 11:49 Intake & Output 07/06/17 07/07/17 07/08/17 06:59 06:59 05:59 Intake Total 1474 1095 222 Output Total 700 300 Balance 774 1095 -78 Weight 92 kg 94 kg General appearance: PRESENT: no acute distress, well-developed, well-nourished Head exam: PRESENT: atraumatic, normocephalic Eye exam: PRESENT: conjunctiva pink, EOMI, PERRLA. ABSENT: scleral icterus Ear exam: PRESENT: normal external ear exam Mouth exam: PRESENT: moist, tongue midline Neck exam: ABSENT: carotid bruit, JVD, lymphadenopathy, thyromegaly Respiratory exam: PRESENT: clear to auscultation nelsy. ABSENT: rales, rhonchi, wheezes Cardiovascular exam: PRESENT: RRR. ABSENT: diastolic murmur, rubs, systolic murmur Pulses: PRESENT: normal dorsalis pedis pul Vascular exam: PRESENT: normal capillary refill GI/Abdominal exam: PRESENT: normal bowel sounds, soft. ABSENT: distended, guarding, mass, organolmegaly, rebound, tenderness Rectal exam: PRESENT: deferred Gentrourinary exam: PRESENT: other - left nephrostomy tube Extremities exam: PRESENT: full ROM. ABSENT: calf tenderness, clubbing, pedal edema Musculoskeletal exam: PRESENT: other Neurological exam: PRESENT: alert, awake, oriented to person, oriented to place , oriented to time, oriented to situation, CN II-XII grossly intact. ABSENT: motor sensory deficit Psychiatric exam: PRESENT: appropriate affect, normal mood. ABSENT: homicidal ideation, suicidal ideation Skin exam: PRESENT: dry, intact, warm. ABSENT: cyanosis, rash Results Laboratory Results: 07/07/17 09:02 07/07/17 09:02 07/07/17 07/07/17 07/07/17 05:30 06:42 08:30 WBC RBC Hgb Hct MCV MCH MCHC RDW Plt Count Seg Neutrophils % Lymphocytes % Monocytes % Eosinophils % Basophils % Absolute Neutrophils Absolute Lymphocytes Absolute Monocytes Absolute Eosinophils Absolute Basophils Carbonic Acid Cancelled Cancelled 1.34 HCO3/H2CO3 Ratio Cancelled Cancelled 20:1 ABG pH Cancelled Cancelled 7.41 ABG pCO2 Cancelled Cancelled 44.6 ABG pO2 Cancelled Cancelled 108.2 H ABG HCO3 Cancelled Cancelled 27.7 H ABG O2 Saturation Cancelled Cancelled 98.0 ABG Base Excess Cancelled Cancelled 2.7 FiO2 Cancelled Cancelled 3.5L Sodium Potassium Chloride Carbon Dioxide Anion Gap BUN Creatinine Est GFR ( Amer) Est GFR (Non-Af Amer) Glucose Calcium 07/07/17 07/07/17 09:02 09:02 WBC 8.5 RBC 4.12 L Hgb 11.1 L Hct 33.3 L MCV 81 MCH 26.9 L MCHC 33.3 RDW 14.8 H Plt Count 146 L Seg Neutrophils % 79.7 H Lymphocytes % 11.3 L Monocytes % 8.7 Eosinophils % 0.2 Basophils % 0.1 Absolute Neutrophils 6.8 Absolute Lymphocytes 1.0 Absolute Monocytes 0.7 Absolute Eosinophils 0.0 Absolute Basophils 0.0 Carbonic Acid HCO3/H2CO3 Ratio ABG pH ABG pCO2 ABG pO2 ABG HCO3 ABG O2 Saturation ABG Base Excess FiO2 Sodium 140.5 Potassium 3.7 Chloride 104 Carbon Dioxide 30 Anion Gap 7 BUN 16 Creatinine 0.69 Est GFR ( Amer) > 60 Est GFR (Non-Af Amer) > 60 Glucose 123 H Calcium 8.4 07/02/17 21:05 Blood Blood Culture - Final Enterococcus Faecalis(Group D) 07/02/17 19:35 Blood Blood Culture - Final Enterococcus Faecalis(Group D) Impressions: Abdomen/Pelvis CT 07/02/17 15:43 IMPRESSION: Left percutaneous nephrostomy and left ureteral stent with a prominent pelvic calcification and with mild hydronephrosis. Chest X-Ray 07/02/17 16:57 IMPRESSION: Cannot exclude right upper lobe pneumonia. Assessment & Plan - Diagnosis (1) Bacteremia Is this a current diagnosis for this admission?: Yes (2) COPD (chronic obstructive pulmonary disease) Qualifiers: COPD type: COPD with acute exacerbation Is this a current diagnosis for this admission?: Yes (4) Pneumonia Qualifiers: Pneumonia type: due to Pneumococcus Laterality: right Lung location: upper lobe of lung Qualified Code(s): J13 - Pneumonia due to Streptococcus pneumoniae Is this a current diagnosis for this admission?: Yes
[2017-07-07] MEDS: TAMSULOSIN HCL 0.4 MG CAP.SR.24H PO SCH (18:25)
[2017-07-08] MEDS: AMPICILLIN SODIUM 2 GM in NORMAL SALINE 100 ML IV SCH ×4 (04:23→21:12)
[2017-07-08] MEDS: PREGABALIN 75 MG CAPSULE PO SCH ×3 (06:15→22:13)
[2017-07-08] MEDS: DULOXETINE HCL 30 MG CAPSULE.DR PO SCH ×3 (06:16→22:13)
[2017-07-08] MEDS: IPRATROPIUM/ALBUTEROL 0.5-2.5 MG/3 ML AMPUL NEB SCH ×4 (08:58→20:10)
[2017-07-08] MEDS: GUAIFENESIN 600 MG TABLET.SA PO SCH ×2 (09:42→22:14)
[2017-07-08] MEDS: FAMOTIDINE 20 MG TABLET PO SCH ×2 (09:42→22:13)
[2017-07-08] MEDS: PREDNISONE 20 MG TABLET PO SCH ×2 (09:42→17:21)
[2017-07-08] MEDS: ENOXAPARIN SODIUM INJ 40 MG/0.4 ML DISP.SYRIN SUBCUT SCH (11:38)
[2017-07-08] MEDS ORDERED: MAGNESIUM HYDROXIDE SUSP 30 ML UDCUP PO PRN (11:41)
[2017-07-08 12:13] LABS: HEMATOCRIT 31.5 % (37.9-51.0); HEMOGLOBIN 10.6 g/dL (13.5-17.0); HGB HCT DIFFERENCE 0.3; MEAN CORPUSCULAR HEMOGLOBIN 26.6 pg (27.0-33.4); MEAN CORPUSCULAR HGB CONC 33.5 g/dL (32.0-36.0); MEAN CORPUSCULAR VOLUME 80 fl (80-97); RED BLOOD COUNT 3.97 10^6/uL (4.35-5.55); RED CELL DISTRIBUTION WIDTH 14.6 % (11.5-14.0); WHITE BLOOD COUNT 12.9 10^3/uL (4.0-10.5)
--- NOTE | 2017-07-08 15:11 | PDOC PROGRESS REPORT ---
Subjective Progress Note for:: 07/08/17 Subjective:: Patient had positive blood cultures for Enterococcus faecalis on 07/02. Patient was getting Rocephin and clindamycin so I have stopped those and put him on ampicillin IV every 6 hours. I will repeat his blood cultures once we have a negative sent we will consider converting him to p.o. also had some bright red blood per rectum today small amount patient has history of hemorrhoids and I have checked his hemoglobin no significant change continue to monitor. Physical Exam Vital Signs: Temp Pulse Resp BP Pulse Ox 98.8 F 82 20 142/62 H 93 07/08/17 12:13 07/08/17 12:13 07/08/17 12:13 07/08/17 12:13 07/08/17 12:13 Intake & Output 07/07/17 07/08/17 07/09/17 07:59 06:59 06:59 Intake Total 0 Output Total Balance 0 Weight General appearance: PRESENT: no acute distress, well-developed, well-nourished Head exam: PRESENT: atraumatic, normocephalic Eye exam: PRESENT: conjunctiva pink, EOMI, PERRLA. ABSENT: scleral icterus Ear exam: PRESENT: normal external ear exam Mouth exam: PRESENT: moist, tongue midline Neck exam: ABSENT: carotid bruit, JVD, lymphadenopathy, thyromegaly Respiratory exam: PRESENT: clear to auscultation nelsy. ABSENT: rales, rhonchi, wheezes Cardiovascular exam: PRESENT: RRR. ABSENT: diastolic murmur, rubs, systolic murmur Pulses: PRESENT: normal dorsalis pedis pul Vascular exam: PRESENT: normal capillary refill GI/Abdominal exam: PRESENT: normal bowel sounds, soft. ABSENT: distended, guarding, mass, organolmegaly, rebound, tenderness Rectal exam: PRESENT: deferred Extremities exam: PRESENT: full ROM. ABSENT: calf tenderness, clubbing, pedal edema Neurological exam: PRESENT: alert, awake, oriented to person, oriented to place , oriented to time, oriented to situation, CN II-XII grossly intact. ABSENT: motor sensory deficit Psychiatric exam: PRESENT: appropriate affect, normal mood. ABSENT: homicidal ideation, suicidal ideation Skin exam: PRESENT: dry, intact, warm. ABSENT: cyanosis, rash Results Laboratory Results: 07/08/17 12:04 07/07/17 09:02 07/08/17 12:04 WBC 12.9 H RBC 3.97 L Hgb 10.6 L Hct 31.5 L MCV 80 MCH 26.6 L MCHC 33.5 RDW 14.6 H Plt Count 131 L Impressions: Abdomen/Pelvis CT 07/02/17 15:43 IMPRESSION: Left percutaneous nephrostomy and left ureteral stent with a prominent pelvic calcification and with mild hydronephrosis. Chest X-Ray 07/02/17 16:57 IMPRESSION: Cannot exclude right upper lobe pneumonia. Assessment & Plan - Diagnosis (1) Bacteremia Is this a current diagnosis for this admission?: Yes (2) COPD (chronic obstructive pulmonary disease) Qualifiers: COPD type: COPD with acute exacerbation Is this a current diagnosis for this admission?: Yes (4) Pneumonia Qualifiers: Pneumonia type: due to Pneumococcus Laterality: right Lung location: upper lobe of lung Qualified Code(s): J13 - Pneumonia due to Streptococcus pneumoniae Is this a current diagnosis for this admission?: Yes (5) Complicated UTI (urinary tract infection) Is this a current diagnosis for this admission?: Yes Plan: Patient has a left nephrostomy tube. Now he had enterococcus in his blood. He is currently on the right antibiotics which is ampicillin. And I will repeat his blood cultures today. Once he gets a clean culture consented home on oral antibiotics. Obtain blood cultures no growth so far
[2017-07-08] MEDS: TAMSULOSIN HCL 0.4 MG CAP.SR.24H PO SCH (17:21)
[2017-07-08] MEDS: DOCUSATE SODIUM 100 MG CAPSULE PO SCH (17:21)
[2017-07-09] MEDS: AMPICILLIN SODIUM 2 GM in NORMAL SALINE 100 ML IV SCH (04:47)
[2017-07-09] MEDS: PREGABALIN 75 MG CAPSULE PO SCH ×3 (06:25→22:59)
[2017-07-09] MEDS: DULOXETINE HCL 30 MG CAPSULE.DR PO SCH ×3 (06:25→22:59)
[2017-07-09] MEDS: HYDROMORPHONE HCL INJ/PF 2 MG/ML AMPULE IV PRN (07:42)
--- NOTE | 2017-07-09 08:01 | PDOC PROGRESS REPORT ---
Subjective Progress Note for:: 07/09/17 Subjective:: The patient states to feel better. He was started on ampicillin because of Enterococcus faecalis. His breathing has improved. He unfortunately had another panic attack. Most probably hospital psychosis Physical Exam Vital Signs: Temp Pulse Resp BP Pulse Ox 98.7 F 80 14 134/51 H 92 07/09/17 00:00 07/09/17 00:00 07/09/17 00:00 07/09/17 00:00 07/09/17 00:00 Intake & Output 07/08/17 07/09/17 07/10/17 06:59 06:59 06:59 Intake Total 1058 Output Total 1500 Balance -442 Weight 93.4 kg General appearance: PRESENT: mild distress Head exam: PRESENT: atraumatic Eye exam: PRESENT: conjunctiva pink Neck exam: ABSENT: carotid bruit Respiratory exam: PRESENT: rhonchi. ABSENT: wheezes Cardiovascular exam: PRESENT: RRR, +S1, +S2 GI/Abdominal exam: PRESENT: normal bowel sounds, soft Extremities exam: PRESENT: tenderness Musculoskeletal exam: PRESENT: tenderness Neurological exam: PRESENT: awake Psychiatric exam: PRESENT: anxious Results Laboratory Results: 07/08/17 12:04 07/07/17 09:02 07/08/17 12:04 WBC 12.9 H RBC 3.97 L Hgb 10.6 L Hct 31.5 L MCV 80 MCH 26.6 L MCHC 33.5 RDW 14.6 H Plt Count 131 L Impressions: Abdomen/Pelvis CT 07/02/17 15:43 IMPRESSION: Left percutaneous nephrostomy and left ureteral stent with a prominent pelvic calcification and with mild hydronephrosis. Chest X-Ray 07/02/17 16:57 IMPRESSION: Cannot exclude right upper lobe pneumonia. Assessment & Plan - Diagnosis (1) COPD (chronic obstructive pulmonary disease) Qualifiers: COPD type: COPD with acute exacerbation Is this a current diagnosis for this admission?: Yes Plan: We will decrease prednisone to 10 mg twice a day and continue nebulization treatments. We will restart the Levaquin (2) Pneumonia Qualifiers: Pneumonia type: due to Pneumococcus Laterality: right Lung location: upper lobe of lung Qualified Code(s): J13 - Pneumonia due to Streptococcus pneumoniae Is this a current diagnosis for this admission?: Yes Plan: Continue Levaquin (3) Nephrolithiasis Is this a current diagnosis for this admission?: Yes Plan: iv hydration (4) Chronic back pain Qualifiers: Back pain location: low back pain Back pain laterality: midline Sciatica presence: without sciatica Qualified Code(s): M54.5 - Low back pain; G89.29 - Other chronic pain; G89.29 - Other chronic pain Is this a current diagnosis for this admission?: Yes Plan: pain meds (5) HTN (hypertension) Is this a current diagnosis for this admission?: Yes Plan: bp meds (6) Bacteremia Is this a current diagnosis for this admission?: Yes (7) Gram-positive bacteremia Is this a current diagnosis for this admission?: Yes Plan: We will switch from IV to p.o. ampicillin because of Enterococcus faecalis
[2017-07-09] MEDS: IPRATROPIUM/ALBUTEROL 0.5-2.5 MG/3 ML AMPUL NEB SCH ×4 (08:37→20:30)
--- NOTE | 2017-07-09 09:30 | PDOC PROGRESS REPORT ---
Subjective Progress Note for:: 07/09/17 - Exacerbation of COPD/sepsis Subjective:: Admits to intermittent attacks of anxiety but otherwise doing well Physical Exam Vital Signs: Temp Pulse Resp BP Pulse Ox 98.7 F 74 20 134/51 H 98 07/09/17 00:00 07/09/17 08:37 07/09/17 08:37 07/09/17 00:00 07/09/17 08:37 Intake & Output 07/08/17 07/09/17 07/10/17 06:59 06:59 06:59 Intake Total 1058 Output Total 1500 Balance -442 Weight 93.4 kg General appearance: PRESENT: no acute distress, cooperative, disheveled, obese, well-developed Head exam: PRESENT: atraumatic, normocephalic Eye exam: PRESENT: conjunctiva pale, EOMI Mouth exam: PRESENT: dry mucosa, neck supple, tongue midline Neck exam: ABSENT: carotid bruit, JVD, lymphadenopathy, thyromegaly Respiratory exam: PRESENT: decreased breath sounds, prolonged expiratory phas, rhonchi, symmetrical, unlabored, wheezes. ABSENT: accessory muscle use, chest wall tenderness, clear to auscultation nelsy, crackles, rales, retraction, stridor , tachypnea Cardiovascular exam: PRESENT: RRR, +S1, +S2. ABSENT: tachycardia Pulses: PRESENT: normal radial pulses GI/Abdominal exam: PRESENT: normal bowel sounds, soft. ABSENT: distended, guarding, mass, organolmegaly, rebound, tenderness Extremities exam: ABSENT: calf tenderness, clubbing, joint swelling, pedal edema , tenderness Musculoskeletal exam: ABSENT: deformity, dislocation, tenderness Neurological exam: PRESENT: alert, awake Psychiatric exam: PRESENT: normal mood Skin exam: PRESENT: dry, warm Results Laboratory Results: 07/08/17 12:04 07/07/17 09:02 07/08/17 12:04 WBC 12.9 H RBC 3.97 L Hgb 10.6 L Hct 31.5 L MCV 80 MCH 26.6 L MCHC 33.5 RDW 14.6 H Plt Count 131 L Impressions: Abdomen/Pelvis CT 07/02/17 15:43 IMPRESSION: Left percutaneous nephrostomy and left ureteral stent with a prominent pelvic calcification and with mild hydronephrosis. Chest X-Ray 07/02/17 16:57 IMPRESSION: Cannot exclude right upper lobe pneumonia. Assessment & Plan - Diagnosis (2) COPD (chronic obstructive pulmonary disease) Qualifiers: COPD type: COPD with acute exacerbation Is this a current diagnosis for this admission?: Yes Plan: Steady improvement continue current therapy (3) Chronic back pain Qualifiers: Back pain location: low back pain Back pain laterality: midline Sciatica presence: without sciatica Qualified Code(s): M54.5 - Low back pain; G89.29 - Other chronic pain; G89.29 - Other chronic pain Is this a current diagnosis for this admission?: Yes (4) Hypoxia Is this a current diagnosis for this admission?: Yes Plan: Oxygenating and ventilating well on low-dose oxygen (5) Nephrolithiasis Is this a current diagnosis for this admission?: Yes (6) Pneumonia Qualifiers: Pneumonia type: due to Pneumococcus Laterality: right Lung location: upper lobe of lung Qualified Code(s): J13 - Pneumonia due to Streptococcus pneumoniae Is this a current diagnosis for this admission?: Yes Plan: 07/02/17 21:05 Blood Culture - Final Blood Enterococcus Faecalis(Group D) 07/02/17 19:35 Blood Culture - Final Blood Enterococcus Faecalis(Group D) 07/02/17 17:48 Urine Culture - Final Clean Catch Midstream Enterococcus Faecalis(Group D) (7) Hypercapnia Is this a current diagnosis for this admission?: Yes Plan: Check ABG in a.m. suspect hypercapnia is at or near baseline
[2017-07-09] MEDS: FAMOTIDINE 20 MG TABLET PO SCH ×2 (09:44→22:59)
[2017-07-09] MEDS: GUAIFENESIN 600 MG TABLET.SA PO SCH ×2 (09:44→22:59)
[2017-07-09] MEDS: LEVOFLOXACIN 500 MG TABLET PO SCH (09:44)
[2017-07-09] MEDS: AMPICILLIN TRIHYD 500 MG CAPSULE PO SCH ×3 (09:44→20:00)
[2017-07-09] MEDS: DOCUSATE SODIUM 100 MG CAPSULE PO SCH ×2 (09:44→17:11)
[2017-07-09] MEDS: PREDNISONE 10 MG TABLET PO SCH ×2 (09:45→17:11)
[2017-07-09] MEDS: TAMSULOSIN HCL 0.4 MG CAP.SR.24H PO SCH (17:12)
[2017-07-10] MEDS: AMPICILLIN TRIHYD 500 MG CAPSULE PO SCH ×2 (02:00→08:41)
[2017-07-10] MEDS: PREGABALIN 75 MG CAPSULE PO SCH (06:24)
[2017-07-10] MEDS: DULOXETINE HCL 30 MG CAPSULE.DR PO SCH (06:25)
--- NOTE | 2017-07-10 08:23 | PDOC DISCHARGE SUMMARY ---
General - Admit/Disc Date/PCP Admission Date/Primary Care Provider: 07/02/17 18:51 ALLAN PRICE, Discharge Date: 07/10/17 - Discharge Diagnosis (1) COPD (chronic obstructive pulmonary disease) Is this a current diagnosis for this admission?: Yes Summary: We will continue with steroids and antibiotics and nebulization treatments (2) Pneumonia Is this a current diagnosis for this admission?: Yes Summary: Complete antibiotics (3) Nephrolithiasis Is this a current diagnosis for this admission?: Yes Summary: Follow-up with urology for the removal of the stent (4) Chronic back pain Is this a current diagnosis for this admission?: Yes (5) HTN (hypertension) Is this a current diagnosis for this admission?: Yes Summary: Continue current medications (6) Bacteremia Is this a current diagnosis for this admission?: Yes (7) Gram-positive bacteremia Is this a current diagnosis for this admission?: Yes Summary: Continue ampicillin (8) Tobacco dependence Summary: Smoking cessation information provided (9) Opioid dependence in controlled environment Summary: Restart current medications - Additional Information Resuscitation Status: Full Code Discharge Diet: As Tolerated Discharge Activity: Activity As Tolerated Home Medications: Albuterol Sulfate [Proair HFA] 2 puff IH Q4 07/02/17 Duloxetine HCl [Cymbalta] 30 mg PO Q8 07/02/17 Ergocalciferol (Vitamin D2) [Vitamin D2] 50,000 unit PO [id number] 07/02/17 Esomeprazole Magnesium [Nexium 24Hr] 22.3 mg PO DAILY 07/02/17 Fluticasone/Salmeterol [Advair 250-50 Diskus 28 dose] 1 inh IH DAILYP PRN Hydroxyzine HCl [Atarax 50 mg Tablet] 50 mg PO Q8HP PRN 07/02/17 Ipratropium/Albuterol Sulfate [Combivent Respimat 4 gm Mdi] 2 puff IH Q6HP PRN 07/02/17 Oxycodone HCl/Acetaminophen [Percocet 7.5-325 mg Tablet] 2 tab PO QID 07/02/17 Pravastatin Sodium [Pravachol] 40 mg PO DAILY 07/02/17 Pregabalin [Lyrica] 150 mg PO Q8 07/02/17 Tamsulosin HCl [Flomax 0.4 mg Cap.sr] 0.4 mg PO DAILY 07/02/17 Ampicillin Trihydrate [Princepen 500 mg Capsule] 500 mg PO Q6H #20 capsule 07/10 Docusate Sodium [Colace 100 mg Capsule] 100 mg PO BID #60 capsule 07/10/17 Levofloxacin [Levaquin 500 mg Tablet] 500 mg PO DAILY #7 tablet 07/10/17 Lorazepam [Ativan 0.5 mg Tablet] 0.5 mg PO Q4HP PRN #40 tablet 07/10/17 Prednisone [Deltasone 10 mg Tablet] 10 mg PO BID #60 tablet 07/10/17 History of Present Illness History of Present Illness: ALLAN CLINTON is a 62 year old male Hospital Course Hospital Course: The patient did much better after the hospitalization. He has received IV steroids and antibiotics. He is blood and urine cultures were positive for Enterococcus faecalis. His antibiotics have been switched from ceftriaxone to ampicillin. He was continued on Levaquin to cover for his COPD. On the day of discharge he appears comfortable in no acute distress Physical Exam Vital Signs: Temp Pulse Resp BP Pulse Ox 97.5 F 75 18 139/56 H 99 07/09/17 16:00 07/09/17 20:30 07/09/17 20:30 07/09/17 16:00 07/09/17 20:30 Intake & Output 07/09/17 07/10/17 07/11/17 06:59 06:59 06:59 Intake Total 1058 1678 Output Total 1500 1300 Balance -442 378 Weight 93.4 kg 93.4 kg General appearance: PRESENT: no acute distress Head exam: PRESENT: atraumatic Eye exam: PRESENT: conjunctiva pink Neck exam: ABSENT: carotid bruit Respiratory exam: PRESENT: rhonchi. ABSENT: wheezes Cardiovascular exam: PRESENT: RRR, +S1, +S2 Pulses: PRESENT: +1 pedal pulses bilateral GI/Abdominal exam: PRESENT: normal bowel sounds, soft Extremities exam: PRESENT: tenderness Musculoskeletal exam: PRESENT: tenderness Psychiatric exam: PRESENT: anxious Results Laboratory Results: 07/08/17 12:04 07/07/17 09:02 Impressions: Abdomen/Pelvis CT 07/02/17 15:43 IMPRESSION: Left percutaneous nephrostomy and left ureteral stent with a prominent pelvic calcification and with mild hydronephrosis. Chest X-Ray 07/02/17 16:57 IMPRESSION: Cannot exclude right upper lobe pneumonia.
[2017-07-10] MEDS: IPRATROPIUM/ALBUTEROL 0.5-2.5 MG/3 ML AMPUL NEB SCH (08:29)
[2017-07-10] MEDS: FAMOTIDINE 20 MG TABLET PO SCH (09:15)
[2017-07-10] MEDS: LEVOFLOXACIN 500 MG TABLET PO SCH (09:15)
[2017-07-10] MEDS: PREDNISONE 10 MG TABLET PO SCH (09:15)
[2017-07-10] MEDS: GUAIFENESIN 600 MG TABLET.SA PO SCH (09:15)
[2017-07-10] MEDS: DOCUSATE SODIUM 100 MG CAPSULE PO SCH (09:15)
--- NOTE | 2017-07-10 10:12 | PDOC PROGRESS REPORT ---
Subjective Progress Note for:: 07/10/17 - Exacerbation of COPD Subjective:: Doing well without any complaints anticipating discharge Physical Exam Vital Signs: Temp Pulse Resp BP Pulse Ox 97.5 F 72 18 139/56 H 97 07/09/17 16:00 07/10/17 08:30 07/10/17 08:30 07/09/17 16:00 07/10/17 08:30 Intake & Output 07/09/17 07/10/17 07/11/17 06:59 06:59 06:59 Intake Total 1058 1678 Output Total 1500 1300 Balance -442 378 Weight 93.4 kg 93.4 kg General appearance: PRESENT: no acute distress, cooperative, thin, well- developed Head exam: PRESENT: atraumatic, normocephalic Eye exam: PRESENT: conjunctiva pale, EOMI Mouth exam: PRESENT: dry mucosa, neck supple, tongue midline Neck exam: ABSENT: carotid bruit, JVD, lymphadenopathy, thyromegaly Respiratory exam: PRESENT: decreased breath sounds, prolonged expiratory phas, stridor, symmetrical, unlabored. ABSENT: accessory muscle use, chest wall tenderness, clear to auscultation nelsy, crackles, rales, retraction, rhonchi, tachypnea, wheezes Cardiovascular exam: PRESENT: RRR, +S1, +S2 Pulses: PRESENT: normal radial pulses GI/Abdominal exam: PRESENT: normal bowel sounds, soft. ABSENT: distended, guarding, mass, organolmegaly, rebound, tenderness Extremities exam: ABSENT: calf tenderness, clubbing, joint swelling, tenderness Musculoskeletal exam: ABSENT: deformity, dislocation, tenderness Neurological exam: PRESENT: alert, awake Psychiatric exam: PRESENT: normal mood Skin exam: PRESENT: dry, warm Results Laboratory Results: 07/08/17 12:04 07/07/17 09:02 Impressions: Abdomen/Pelvis CT 07/02/17 15:43 IMPRESSION: Left percutaneous nephrostomy and left ureteral stent with a prominent pelvic calcification and with mild hydronephrosis. Chest X-Ray 07/02/17 16:57 IMPRESSION: Cannot exclude right upper lobe pneumonia. Assessment & Plan - Diagnosis (1) Opioid dependence in controlled environment Is this a current diagnosis for this admission?: Yes Plan: Continue supplemental opiates (2) COPD (chronic obstructive pulmonary disease) Qualifiers: COPD type: COPD with acute exacerbation Qualified Code(s): J44.1 - Chronic obstructive pulmonary disease with (acute) exacerbation Is this a current diagnosis for this admission?: Yes Plan: Continue current therapy improving rapidly approaching his baseline (3) Chronic back pain Qualifiers: Back pain location: low back pain Back pain laterality: midline Sciatica presence: without sciatica Qualified Code(s): M54.5 - Low back pain; G89.29 - Other chronic pain; G89.29 - Other chronic pain Is this a current diagnosis for this admission?: Yes (4) Hypoxia Is this a current diagnosis for this admission?: No (5) Nephrolithiasis Is this a current diagnosis for this admission?: Yes (6) Pneumonia Qualifiers: Pneumonia type: due to Pneumococcus Laterality: right Lung location: upper lobe of lung Qualified Code(s): J13 - Pneumonia due to Streptococcus pneumoniae Is this a current diagnosis for this admission?: No (7) Hypercapnia Is this a current diagnosis for this admission?: No
[2017-07-10 10:17] VITALS: BP 94/57
== END 2017-07-10 11:11 | disposition home or self-care (01) | DRG 190 ==
LOC: ER 15:17 → UNDOADMIN 18:29 → EH 18:29 → 3S 21:00
PROVIDERS: ADMIT Internal Medicine; ATTEND Internal Medicine
PROC: 3E0F73Z Introduction of Anti-inflammatory into Respiratory Tract, Via Natural or Artificial Opening (ICD-10-PCS; principal; 2017-07-02)
DX: J44.1 Chronic obstructive pulmonary disease with (acute) exacerbation (principal); J13 Pneumonia due to Streptococcus pneumoniae; J96.21 Acute and chronic respiratory failure with hypoxia; R78.81 Bacteremia; N39.0 Urinary tract infection, site not specified; N13.30 Unspecified hydronephrosis; J44.0 Chronic obstructive pulmonary disease with (acute) lower respiratory infection; N20.0 Calculus of kidney; G89.29 Other chronic pain; M54.5 Low back pain; I10 Essential (primary) hypertension; B95.2 Enterococcus as the cause of diseases classified elsewhere; F17.210 Nicotine dependence, cigarettes, uncomplicated; E78.5 Hyperlipidemia, unspecified; J45.909 Unspecified asthma, uncomplicated; K21.9 Gastro-esophageal reflux disease without esophagitis; M19.90 Unspecified osteoarthritis, unspecified site; E11.9 Type 2 diabetes mellitus without complications; F32.9 Major depressive disorder, single episode, unspecified; F41.0 Panic disorder [episodic paroxysmal anxiety]; E86.0 Dehydration; Z91.041 Radiographic dye allergy status; Z79.891 Long term (current) use of opiate analgesic; Z79.899 Other long term (current) drug therapy; Z90.49 Acquired absence of other specified parts of digestive tract; Z82.49 Family history of ischemic heart disease and other diseases of the circulatory system; Z80.42 Family history of malignant neoplasm of prostate
CPT/HCPCS: 36415; 36600; 71010; 74176; 80048; 80053; 81001; 82803; 83735; 85025; 85027; 85610; 85730; 87040; 87077; 87086; 87088; 87186; 94640; 94667; 94668; 94799; 96361; 96374; 96375; 99285; J0290; J0696; J1170; J1650; J1885; J1956; J2060; J2405; J2765; J2920; J2930; J3490; J7030; J7512; J7620

== ENCOUNTER 2017-08-08 07:54 | Day surgery (SDC) | payer BC ==
[~2017-08-08 07:54] MED LIST: KETOROLAC TROMETHAMINE 0.45% 4 DROP/0.4 ML DROPERETTE OD PRN; MIDAZOLAM 2 MG/2 ML INJ ONE
[2017-08-08] MEDS: TROPICAMIDE 1% OPH SOLN 3 ML OD PRN ×3 (08:30→08:51)
[2017-08-08] MEDS: CYCLOPENTOLATE 0.2%/PHENYLEPHRINE 1% OPH SOLN 2 ML OD PRN ×3 (08:30→08:51)
[2017-08-08] MEDS: TETRACAINE HCL 0.5% OPH SOLN 0.6 ML DROPERETTE OD PRN ×3 (08:31→09:13)
[2017-08-08] MEDS: BESIFLOXACIN HCL 0.6% OPH SUSP 5 ML BOTTLE OD PRN ×4 (08:31→09:36)
[2017-08-08] MEDS ORDERED: EPINEPHRINE INJ/PF 1 MG/1 ML AMPULE ONE (08:39)
[2017-08-08] MEDS ORDERED: LIDOCAINE 1% INJ-PF (10 MG/ML) 30 ML SDV ONE (08:40)
[2017-08-08] MEDS ORDERED: CHONDR SU A NA/HYALUR INTRAOC KIT (SURGICARE) ONE (08:40)
[2017-08-08] MEDS ORDERED: PHENYLEPHRINE/KETOROLAC 1%-0.3% 4 ML VIAL ONE (09:11)
[2017-08-08] MEDS: TOBRAMYCIN SULFATE/DEXAMETH OPH OINTMENT 3.5 GM ONE ×2 (09:30→09:36)
[2017-08-08] MEDS ORDERED: MIDAZOLAM 2 MG/2 ML INJ ONE (10:33)
== END 2017-08-08 10:18 | disposition home or self-care (01) ==
LOC: SC 07:54
PROVIDERS: ATTEND Ophthalmology
PROC: 08RJ3JZ Replacement of Right Lens with Synthetic Substitute, Percutaneous Approach (ICD-10-PCS; principal; 2017-08-08 09:15)
DX: H25.11 Age-related nuclear cataract, right eye (principal); J44.9 Chronic obstructive pulmonary disease, unspecified; K21.9 Gastro-esophageal reflux disease without esophagitis; F17.210 Nicotine dependence, cigarettes, uncomplicated; E78.00 Pure hypercholesterolemia, unspecified; Z79.51 Long term (current) use of inhaled steroids; Z79.899 Other long term (current) drug therapy; Z91.041 Radiographic dye allergy status
CPT/HCPCS: 66984; V2630; J2250; J3490 ×3; C9447; 142; J0171

== ENCOUNTER 2017-08-22 08:35 | Day surgery (SDC) | payer BC ==
[~2017-08-22 08:35] MED LIST changes: +CHONDR SU A NA/HYALUR INTRAOC KIT (SURGICARE) ONE; -KETOROLAC TROMETHAMINE 0.45% 4 DROP/0.4 ML DROPERETTE OD PRN; +KETOROLAC TROMETHAMINE 0.45% 4 DROP/0.4 ML DROPERETTE OS PRN; +LIDOCAINE 1% INJ-PF (10 MG/ML) 30 ML SDV ONE; -MIDAZOLAM 2 MG/2 ML INJ ONE; +PHENYLEPHRINE/KETOROLAC 1%-0.3% 4 ML VIAL ONE; +TOBRAMYCIN SULFATE/DEXAMETH OPH OINTMENT 3.5 GM ONE
[2017-08-22] MEDS: CYCLOPENTOLATE 0.2%/PHENYLEPHRINE 1% OPH SOLN 2 ML OS PRN ×3 (09:22→09:43)
[2017-08-22] MEDS: TROPICAMIDE 1% OPH SOLN 3 ML OS PRN ×3 (09:22→09:43)
[2017-08-22] MEDS: TETRACAINE HCL 0.5% OPH SOLN 0.6 ML DROPERETTE OS PRN ×3 (09:23→09:50)
[2017-08-22] MEDS: BESIFLOXACIN HCL 0.6% OPH SUSP 5 ML BOTTLE OS PRN ×3 (09:23→10:14)
[2017-08-22] MEDS ORDERED: MIDAZOLAM 2 MG/2 ML INJ ONE (09:36)
== END 2017-08-22 11:00 | disposition home or self-care (01) ==
LOC: SC 08:35
PROVIDERS: ATTEND Ophthalmology
PROC: 08RK3JZ Replacement of Left Lens with Synthetic Substitute, Percutaneous Approach (ICD-10-PCS; principal; 2017-08-22 09:45)
DX: H25.12 Age-related nuclear cataract, left eye (principal); Z98.41 Cataract extraction status, right eye; J44.9 Chronic obstructive pulmonary disease, unspecified; I10 Essential (primary) hypertension; E78.00 Pure hypercholesterolemia, unspecified; K21.9 Gastro-esophageal reflux disease without esophagitis; Z79.51 Long term (current) use of inhaled steroids; Z79.899 Other long term (current) drug therapy; Z91.041 Radiographic dye allergy status; Z87.891 Personal history of nicotine dependence
CPT/HCPCS: 66984; V2630; J2250; J3490 ×3; C9447; 142

== ENCOUNTER → 2017-09-26 | Outpatient (CLI) | payer BC ==
--- NOTE | 2017-09-26 15:44 | RADIOLOGY REPORT (SQ) ---
EXAM DESCRIPTION: VENOUS BILATERAL LOWER COMPLETED DATE/TIME: 09/26/2017 1:50 pm REASON FOR STUDY: PAIN M79.661 PAIN IN RIGHT LOWER LEG M79.662 PAIN IN LEFT LOWER LEG COMPARISON: None. TECHNIQUE: Dynamic and static munson scale and color images acquired of both lower extremity venous sy stems. Selected spectral images acquired with additional compression and augmentation maneuvers. Imag es stored on PACS. LIMITATIONS: None. FINDINGS: RIGHT LEG COMMON FEMORAL AND FEMORAL: Normal phasicity, compression and augmentation. No visualized echogenic m aterial on munson scale. No defects on color images. POPLITEAL: Normal compression and augmentation. No visualized echogenic material on munson scale. No de fects on color images. CALF VESSELS: Normal compression and augmentation. No visualized echogenic material on munson scale. No defects on color image. GSV AND SSV: Normal compression. No visualized echogenic material on munson scale. No defects on color images. ANY DEEP VENOUS INSUFFICIENCY: Not evaluated. ANY EVIDENCE OF POPLITEAL CYST: No. OTHER: No other significant finding. LEFT LEG COMMON FEMORAL AND FEMORAL: Normal phasicity, compression and augmentation. No visualized echogenic m aterial on munson scale. No defects on color images. POPLITEAL: Normal compression and augmentation. No visualized echogenic material on munson scale. No de fects on color images. CALF VESSELS: Normal compression and augmentation. No visualized echogenic material on munson scale. No defects on color images. GSV AND SSV: Normal compression. No visualized echogenic material on munson scale. No defects on color images. ANY DEEP VENOUS INSUFFICIENCY: Not evaluated. ANY EVIDENCE POPLITEAL CYST: No. OTHER: No other significant finding. IMPRESSION: NO EVIDENCE DVT OR SVT IN EITHER LEG. TECHNICAL DOCUMENTATION: JOB ID: [id number] [employer]- All Rights Reserved
== END ==
LOC: SP 12:38
PROVIDERS: ATTEND Internal Medicine Pulmonary Disease
DX: M79.662 Pain in left lower leg (principal); M79.661 Pain in right lower leg; R06.09 Other forms of dyspnea
CPT/HCPCS: 93970

== ENCOUNTER → 2017-09-28 | Outpatient (CLI) | payer BC ==
--- NOTE | 2017-09-28 10:31 | RADIOLOGY REPORT (SQ) ---
EXAM DESCRIPTION: CT CHEST WITHOUT COMPLETED DATE/TIME: 09/28/2017 8:48 am REASON FOR STUDY: DYSPNEA ON EFFORT (R06.09) R06.09 OTHER FORMS OF DYSPNEA COMPARISON: None. TECHNIQUE: CT scan performed of the chest without intravenous contrast. Images reviewed with lung, soft tissue and bone windows. Reconstructed coronal and sagittal MPR images reviewed. All images st ored on PACS. All CT scanners at this facility use dose modulation, iterative reconstruction, and/or weight based d osing when appropriate to reduce radiation dose to as low as reasonably achievable (ALARA). [facility]: Dose Right [facility]: CareDose [facility]: Dose Right [facility]: Teradose 4D [facility]: Lucidity ([employer]) RADIATION DOSE: CT Rad equipment meets quality standard of care and radiation dose reduction techniq ues were employed. CTDIvol: 11.8 mGy. DLP: 472 mGy-cm. mGy. LIMITATIONS: No technical limitations. FINDINGS: LUNGS AND PLEURA: Subsegmental ground-glass attenuation in the right upper lobe with more subtle ground-glass attenuation in the left upper lobe. No effusions. HILAR AND MEDIASTINAL STRUCTURES: No identified masses or abnormal nodes. No obvious aneurysm. HEART AND VASCULAR STRUCTURES: No aneurysm. No pericardial effusion. UPPER ABDOMEN: No significant findings. Limited exam. THYROID AND OTHER SOFT TISSUES: No masses. No adenopathy. BONES: No significant finding. HARDWARE: None in the chest. OTHER: No other significant findings. IMPRESSION: Ground-glass attenuation in the upper lobes, right greater than left. Most likely infla mmatory or atypical infection. TECHNICAL DOCUMENTATION: JOB ID: [id number] Quality ID # [id number]: Final reports with documentation of one or more dose reduction techniques (e.g., Au tomated exposure control, adjustment of the mA and/or kV according to patient size, use of iterative reconstruction technique) 2010 [employer]- All Rights Reserved
== END ==
LOC: RAD 08:33
PROVIDERS: ATTEND Internal Medicine Pulmonary Disease
DX: R06.09 Other forms of dyspnea (principal)
CPT/HCPCS: 71250

== ENCOUNTER → 2017-11-27 | Outpatient (CLI) | payer BC ==
[2017-11-27 09:39] LABS: ABSOLUTE EOSINOPHILS # (AUTO) 0.4 10^3/uL (0.0-0.6); ABSOLUTE LYMPHOCYTES (AUTO) 2.3 10^3/uL (0.5-4.7); ABSOLUTE MONOCYTES (AUTO) 0.6 10^3/uL (0.1-1.4); ABSOLUTE NEUT (AUTO) 2.7 10^3/uL (1.7-8.2); BASOPHILS % (AUTO) 0.4 % (0-2); EOSINOPHILS % (AUTO) 6.2 % (0-6); HEMATOCRIT 37.3 % (37.9-51.0); MEAN CORPUSCULAR HEMOGLOBIN 25.6 pg (27.0-33.4); MEAN CORPUSCULAR HGB CONC 32.2 g/dL (32.0-36.0); MEAN CORPUSCULAR VOLUME 80 fl (80-97); MONOCYTES % (AUTO) 9.7 % (3-13); PLATELET COUNT 146 10^3/uL (150-450); RED CELL DISTRIBUTION WIDTH 16.7 % (11.5-14.0); SEGMENTED NEUTROPHILS % (AUTO) 45.7 % (42-78); TOTAL CELLS COUNTED % (AUTO) 100 %
[2017-11-27 10:11] LABS: ALANINE AMINOTRANSFERASE 28 U/L (21-72); ALBUMIN 3.9 g/dL (3.5-5.0); ALKALINE PHOSPHATASE 86 U/L (38-126); ANION GAP 5 (5-19); ASPARTATE AMINO TRANSFERASE 30 U/L (17-59); BILIRUBIN,DIRECT 0.3 mg/dL (0.0-0.4); BILIRUBIN,TOTAL 0.3 mg/dL (0.2-1.3); BLOOD UREA NITROGEN 13 mg/dL (7-20); CALCIUM 8.7 mg/dL (8.4-10.2); CARBON DIOXIDE 38 mmol/L (22-30); CHLORIDE 100 mmol/L (98-107); CHOLESTEROL 190.27 mg/dL (0-200); GLUCOSE 97 mg/dL (75-110); POTASSIUM 3.6 mmol/L (3.6-5.0); SODIUM 142.8 mmol/L (137-145); TOTAL PROTEIN 6.5 g/dL (6.3-8.2); TRIGLYCERIDES 360 mg/dL (<150)
[2017-11-27 10:22] LABS: DIRECT LDL 87 mg/dL (<100)
[2017-11-27 10:43] LABS: PROSTATE SPECIFIC ANTIGEN < 0.060 ng/mL (<4.00)
== END ==
LOC: OD 09:04
PROVIDERS: ATTEND Internal Medicine
DX: I10 Essential (primary) hypertension (principal); E78.5 Hyperlipidemia, unspecified; R53.83 Other fatigue; R35.1 Nocturia; E55.9 Vitamin D deficiency, unspecified
CPT/HCPCS: 36415; 80053; 80061; 84153; 84443; 85025

== ENCOUNTER 2017-12-06 11:37 | Emergency (ER) | payer BC ==
[2017-12-06] MEDS ORDERED: DIAZEPAM INJ 10 MG/2 ML DISP.SYRIN IV ONE (11:47)
[2017-12-06] MEDS ORDERED: NORMAL SALINE 1000 ML 1,000 ML IV ONE (11:47)
--- NOTE | 2017-12-06 11:51 | ER Document Report ---
ED General - General Chief Complaint: Flank Pain Stated Complaint: LEFT FLANK PAIN Time Seen by Provider: 12/06/17 11:43 Notes: 62-year-old male presents to the ER with 2 day history of left flank pain. Patient has a history of chronic back pain and sees pain management. He has a morphine pump embedded in his abdomen. He states he also has a history of kidney stones. But denies any hematuria or dysuria complains of pain in his left flank that sometimes will travel across to his right flank. States there is also back spasms. He states he is having trouble telling if this is a kidney stone or just his chronic back pain. He denies any saddle paresthesias. Denies any problems with urination or defecation. Denies chest pain or shortness of breath denies any lower extremity weakness. He denies any falls or trauma. Denies headache or blurred vision. TRAVEL OUTSIDE OF THE [place] IN LAST 30 DAYS: No - Related Data Allergies/Adverse Reactions: Iodinated Contrast- Oral and IV Dye [IV Dye, Iodine Containing] Allergy ( Intermediate, Verified 08/08/17 09:06) Gary Past Medical History - Social History Smoking Status: Unknown if Ever Smoked Family History: CAD, Hypertension, Other - Past Medical History Cardiac Medical History: Reports: Hx Hypercholesterolemia, Hx Heart Murmur Denies: Hx Coronary Artery Disease, Hx Heart Attack, Hx Hypertension Pulmonary Medical History: Reports: Hx Asthma - DAILY MEDS, Hx COPD Denies: Hx Bronchitis, Hx Pneumonia, Hx Tuberculosis Neurological Medical History: Denies: Hx Cerebrovascular Accident, Hx Seizures Endocrine Medical History: Denies: Hx Diabetes Mellitus Type 1, Hx Diabetes Mellitus Type 2, Hx Hyperthyroidism, Hx Hypothyroidism Renal/ Medical History: Reports: Hx Kidney Stones. Denies: Hx Peritoneal Dialysis GI Medical History: Reports: Hx Gastroesophageal Reflux Disease. Denies: Hx Hepatitis, Hx Hiatal Hernia, Hx Ulcer Musculoskeltal Medical History: Reports Hx Arthritis, Reports Hx Fibromyalgia Psychiatric Medical History: Reports: Hx Depression Denies: Hx Bipolar Disorder, Hx Post Traumatic Stress Disorder, Hx Schizophrenia Infectious Medical History: Denies: Hx Hepatitis Past Surgical History: Reports: Hx Cholecystectomy. Denies: Hx Open Heart Surgery, Hx Pacemaker - Immunizations Hx Diphtheria, Pertussis, Tetanus Vaccination: Yes - 2010 Review of Systems - Review of Systems Cardiovascular: denies: Chest pain, Palpitations Respiratory: denies: Cough, Short of breath Gastrointestinal: Nausea, Vomiting. denies: Diarrhea, Black stools Genitourinary: Flank pain. denies: Dysuria, Hematuria Musculoskeletal: Back pain -: Yes All other systems reviewed and negative Physical Exam - Vital signs Vitals: Temp Pulse Resp BP Pulse Ox 97.6 F 69 20 164/73 H 95 12/06/17 11:49 12/06/17 11:49 12/06/17 11:49 12/06/17 11:49 12/06/17 11:49 - Notes Notes: GENERAL_APPEARANCE: well_nourished, alert, cooperative, appears anxious and uncomfortable VITALS: reviewed, see vital signs table. HEAD: no_swelling\tenderness on the head. EYES: PERRL, EOMI, conjunctiva_clear. NOSE: no_nasal_discharge. MOUTH: (-)decreased moisture. THROAT: no_tonsilar_inflammation, no_airway_obstruction. no_lymphadenopathy NECK: supple, no_neck_tenderness, (-)thyromegaly. BACK: Diffuse paraspinal back pain more so on the left than the right CHEST_WALL: no_chest_tenderness. LUNGS: no_wheezing, no_rales, no_rhonchi, (-)accessory muscle use, good air exchange bilateral. HEART: normal_rate, normal_rhythm, normal_S1, normal_S2, (-)S3, (-)S4, no_ murmur, no_rub. ABDOMEN: normal_BS, soft, no_abd_tenderness, (-)guarding, (-)rebound, no_ organomegaly, no_abd_masses. Morphine pump right lower quadrant EXTREMITIES: emities, good pulses in all_extremities, no_swelling\tenderness in the extremities, no_edema. SKIN: warm, dry, good_color, no_rash. MENTAL_STATUS: speech_clear, oriented_X_3, normal_affect, responds_ appropriately to questions. NEURO: Neg Motor or Sensory Deficits on exam, CN 2-12 intact, DTR 2+ symmetric x 4, No cerbellar signs Course - Re-evaluation Re-evalutation: 12/06/17 11:50 Patient arrives complaining of severe back pain. During exam he is having muscle spasms we will give him a dose of IV fluids and Valium. We will work him up for kidney stone. He has no saddle paresthesias and lower extremity weakness. No bowel or bladder dysfunction or anything to suggest cauda equina syndrome at this time. 12/06/17 13:23 CT scan shows nonobstructing stones no hydroureter or hydronephrosis. Patient has a few white cells in his urine but there may be some mild contamination will place him on Macrobid for a few days. Patient is on a host of narcotic pain medicine goes to [facility]. I will prescribe him no narcotics. He did have some relief though with Valium here. Will prescribe him a short course of Flexeril for home otherwise he must follow-up with his pain management doctor for further care. 12/06/17 13:24 The spouse also states that the patient has been very constipated and was straining lately. She feels that he may have hurt his back straining. I explained her due to the amount of narcotics he takes he is prone to constipation and will need to use MiraLAX and other laxatives to counteract this. - Vital Signs Vital signs: Temp Pulse Resp BP Pulse Ox 97.6 F 69 20 164/73 H 95 12/06/17 11:49 12/06/17 11:49 12/06/17 11:49 12/06/17 11:49 12/06/17 11:49 - Laboratory Result Diagrams: 12/06/17 12:20 12/06/17 12:20 Laboratory results interpreted by me: 12/06/17 12/06/17 12/06/17 12:20 12:20 12:20 Hgb 11.7 L Hct 35.8 L MCV 79 L MCH 25.5 L RDW 16.9 H Plt Count 112 L Glucose 114 H Total Protein 5.8 L Urine Urobilinogen 4.0 H Ur Leukocyte Esterase SMALL H Discharge - Discharge Clinical Impression: Back muscle spasm, UTI (urinary tract infection) Condition: Good Disposition: HOME, SELF-CARE Instructions: Urinary Tract Infection ([facility]), Low Back Pain ([facility]) Prescriptions: Cyclobenzaprine HCl [Flexeril 5 mg Tablet] 5 mg PO TID #15 tablet Nitrofurantoin/Nitrofuran Mac [Macrobid 100 mg Capsule] 1 tab PO BID #20 capsule
--- NOTE | 2017-12-06 12:27 | RADIOLOGY REPORT (SQ) ---
EXAM DESCRIPTION: CT ABD/PELVIS NO ORAL OR IV COMPLETED DATE/TIME: 12/06/2017 11:59 am REASON FOR STUDY: Left flank pain COMPARISON: [address] abdomen pelvis exams since 09/02/2009, most recently 07/02/2017 CT chest 09/28/2017 TECHNIQUE: CT scan of the abdomen and pelvis performed without intravenous or oral contrast. Images reviewed with lung, soft tissue, and bone windows. Reconstructed coronal and sagittal MPR images revi ewed. All images stored on PACS. All CT scanners at this facility use dose modulation, iterative reconstruction, and/or weight based d osing when appropriate to reduce radiation dose to as low as reasonably achievable (ALARA). [facility]: Dose Right [facility]: CareDose [facility]: Dose Right [facility]: Teradose 4D [facility]: [employer] RADIATION DOSE: CT Rad equipment meets quality standard of care and radiation dose reduction techniq ues were employed. CTDIvol: 14.2 mGy. DLP: 794 mGy-cm.mGy. LIMITATIONS: None. FINDINGS: LOWER CHEST: Hiatal hernia. Mild cardiomegaly. No lung base infiltrates NON-CONTRASTED LIVER, SPLEEN, ADRENALS: Evaluation limited by lack of IV contrast. No identified sign ificant masses. PANCREAS: No masses. No peripancreatic inflammatory changes. GALLBLADDER: Surgically absent RIGHT KIDNEY AND URETER: No suspicious masses. Assessment limited by lack of IV contrast. 4 mm and 2 mm right lower pole intrarenal nonobstructive stones. No hydronephrosis or hydroureter. LEFT KIDNEY AND URETER: No suspicious masses. Assessment limited by lack of IV contrast. Retroperit meeks 3 mm phlebolith adjacent to the left lower pole kidney. No hydronephrosis or hydroureter. AORTA AND RETROPERITONEUM: No aneurysm. No retroperitoneal masses or adenopathy. BOWEL AND PERITONEAL CAVITY: No obvious masses or inflammatory changes. No free fluid. APPENDIX: Normal. PELVIS, BLADDER, AND ABDOMINAL WALL:Tiny 2 mm calcification in the midline bladder trigone. This cou ld represent a recently passed urinary calculus. BONES: Chronic appearing L3 upper endplate 50% compression. OTHER: Right lower quadrant pain pump with the catheter tip over the lower thoracic spinal canal IMPRESSION: Hydronephrosis or hydroureter. Tiny calculus in the bladder 2 mm in size could represen t a recently passed ureteral stone. COMMENT: Quality ID # [id number]: Final reports with documentation of one or more dose reduction techniques (e.g., Automated exposure control, adjustment of the mA and/or kV according to patient size, use of iterative reconstruction technique) TECHNICAL DOCUMENTATION: JOB ID: [id number] [employer]- All Rights Reserved Reading location - IP/workstation name: [facility]
[2017-12-06 12:49] LABS: ABSOLUTE EOSINOPHILS # (AUTO) 0.1 10^3/uL (0.0-0.6); ABSOLUTE LYMPHOCYTES (AUTO) 0.9 10^3/uL (0.5-4.7); ABSOLUTE MONOCYTES (AUTO) 0.3 10^3/uL (0.1-1.4); ABSOLUTE NEUT (AUTO) 3.7 10^3/uL (1.7-8.2); BASOPHILS % (AUTO) 0.1 % (0-2); EOSINOPHILS % (AUTO) 1.7 % (0-6); HEMATOCRIT 35.8 % (37.9-51.0); HEMOGLOBIN 11.7 g/dL (13.5-17.0); LYMPHOCYTES % (AUTO) 17.5 % (13-45); MEAN CORPUSCULAR HEMOGLOBIN 25.5 pg (27.0-33.4); MEAN CORPUSCULAR HGB CONC 32.5 g/dL (32.0-36.0); MEAN CORPUSCULAR VOLUME 79 fl (80-97); MONOCYTES % (AUTO) 6.1 % (3-13); PLATELET COUNT 112 10^3/uL (150-450); RED BLOOD COUNT 4.56 10^6/uL (4.35-5.55); RED CELL DISTRIBUTION WIDTH 16.9 % (11.5-14.0); SEGMENTED NEUTROPHILS % (AUTO) 74.6 % (42-78); TOTAL CELLS COUNTED % (AUTO) 100 %; WHITE BLOOD COUNT 4.9 10^3/uL (4.0-10.5)
[2017-12-06 13:00] LABS: ALANINE AMINOTRANSFERASE 48 U/L (21-72); ALBUMIN 3.6 g/dL (3.5-5.0); ALKALINE PHOSPHATASE 90 U/L (38-126); ANION GAP 7 (5-19); ASPARTATE AMINO TRANSFERASE 46 U/L (17-59); BILIRUBIN,DIRECT 0.2 mg/dL (0.0-0.4); BILIRUBIN,TOTAL 0.4 mg/dL (0.2-1.3); BLOOD UREA NITROGEN 15 mg/dL (7-20); CALCIUM 8.4 mg/dL (8.4-10.2); CARBON DIOXIDE 28 mmol/L (22-30); CHLORIDE 106 mmol/L (98-107); GLUCOSE 114 mg/dL (75-110); POTASSIUM 3.7 mmol/L (3.6-5.0); SODIUM 141.3 mmol/L (137-145); TOTAL PROTEIN 5.8 g/dL (6.3-8.2)
[2017-12-06 13:05] LABS: APPEARANCE,URINE SLIGHTLY-CLOUDY; BILIRUBIN,URINE NEGATIVE (NEGATIVE); COLOR,URINE YELLOW; GLUCOSE, URINE NEGATIVE (NEGATIVE); KETONES,URINE NEGATIVE (NEGATIVE); LEUKOCYTE ESTERASE,URINE SMALL (NEGATIVE); NITRITE,URINE NEGATIVE (NEGATIVE); PROTEIN,URINE NEGATIVE (NEGATIVE); URINE SPECIFIC GRAVITY 1.015
[2017-12-06 14:03] VITALS: BP 166/80
== END 2017-12-06 14:00 | disposition home or self-care (01) ==
LOC: ER 11:37
DX: N39.0 Urinary tract infection, site not specified (principal); M62.830 Muscle spasm of back; R10.9 Unspecified abdominal pain; R11.2 Nausea with vomiting, unspecified; M54.9 Dorsalgia, unspecified; G89.29 Other chronic pain; Z79.891 Long term (current) use of opiate analgesic; J45.909 Unspecified asthma, uncomplicated; Z91.041 Radiographic dye allergy status; Z87.442 Personal history of urinary calculi; Z87.19 Personal history of other diseases of the digestive system; Z90.49 Acquired absence of other specified parts of digestive tract
CPT/HCPCS: 99284; 96361; 96374; 36415; 83690; 85025; 80053; 81001; 74176; J3360; J7030

== ENCOUNTER → 2018-04-04 | Outpatient (CLI) | payer BC ==
[2018-04-04 12:13] LABS: ABSOLUTE EOSINOPHILS # (AUTO) 0.2 10^3/uL (0.0-0.6); ABSOLUTE LYMPHOCYTES (AUTO) 1.2 10^3/uL (0.5-4.7); ABSOLUTE MONOCYTES (AUTO) 0.4 10^3/uL (0.1-1.4); ABSOLUTE NEUT (AUTO) 3.1 10^3/uL (1.7-8.2); BASOPHILS % (AUTO) 0.4 % (0-2); EOSINOPHILS % (AUTO) 3.7 % (0-6); HEMATOCRIT 25.6 % (37.9-51.0); HEMOGLOBIN 8.1 g/dL (13.5-17.0); MEAN CORPUSCULAR HEMOGLOBIN 23.3 pg (27.0-33.4); MEAN CORPUSCULAR HGB CONC 31.6 g/dL (32.0-36.0); MEAN CORPUSCULAR VOLUME 74 fl (80-97); MONOCYTES % (AUTO) 8.9 % (3-13); PLATELET COUNT 131 10^3/uL (150-450); RED BLOOD COUNT 3.48 10^6/uL (4.35-5.55); RED CELL DISTRIBUTION WIDTH 15.1 % (11.5-14.0); TOTAL CELLS COUNTED % (AUTO) 100 %; WHITE BLOOD COUNT 4.9 10^3/uL (4.0-10.5)
[2018-04-04 12:41] LABS: ALANINE AMINOTRANSFERASE 23 U/L (21-72); ALBUMIN 3.8 g/dL (3.5-5.0); ALKALINE PHOSPHATASE 71 U/L (38-126); ANION GAP 10 (5-19); ASPARTATE AMINO TRANSFERASE 29 U/L (17-59); BILIRUBIN,DIRECT 0.3 mg/dL (0.0-0.4); BILIRUBIN,TOTAL 0.3 mg/dL (0.2-1.3); BLOOD UREA NITROGEN 14 mg/dL (7-20); CALCIUM 8.6 mg/dL (8.4-10.2); CARBON DIOXIDE 33 mmol/L (22-30); CHLORIDE 101 mmol/L (98-107); GLUCOSE 90 mg/dL (75-110); POTASSIUM 3.7 mmol/L (3.6-5.0); SODIUM 144.2 mmol/L (137-145); TOTAL PROTEIN 6.3 g/dL (6.3-8.2)
== END ==
LOC: OD 11:06
PROVIDERS: ATTEND Internal Medicine
DX: I10 Essential (primary) hypertension (principal); E03.9 Hypothyroidism, unspecified; R73.9 Hyperglycemia, unspecified
CPT/HCPCS: 36415; 80053; 83036; 83525; 84443; 85025

== ENCOUNTER 2018-05-01 12:28 | Emergency (ER) | payer BC ==
[2018-05-01 12:36] VITALS: BP 152/58
--- NOTE | 2018-05-01 12:58 | ER Document Report ---
ED General - General Chief Complaint: Abnormal Lab Results Stated Complaint: ABNORMAL LABS Time Seen by Provider: 05/01/18 12:43 Notes: Patient is a 63-year-old male that presents to the emergency department for chief complaint of anemia. Patient had outpatient blood work done today, demonstrated a hemoglobin of 7.6, and he was advised to come to the emergency department by the wound center. Patient is being treated for a chronic wound he had on his right leg. Patient denies noting any melena, vomiting, or dark stools, syncope, chest pain, shortness of breath, difficulty breathing, headaches. He reports having history of anemia in the past, due to hemorrhoidal bleeding. TRAVEL OUTSIDE OF THE [place] IN LAST 30 DAYS: No - Related Data Allergies/Adverse Reactions: Iodinated Contrast- Oral and IV Dye [IV Dye, Iodine Containing] Allergy ( Intermediate, Verified 05/01/18 12:29) Hives Past Medical History - Social History Smoking Status: Never Smoker Frequency of alcohol use: None Drug Abuse: None Family History: CAD, Hypertension, Other Patient has suicidal ideation: No Patient has homicidal ideation: No - Medical History Medical History: Other - Anemia - Past Medical History Cardiac Medical History: Reports: Hx Hypercholesterolemia, Hx Heart Murmur Denies: Hx Coronary Artery Disease, Hx Heart Attack, Hx Hypertension Pulmonary Medical History: Reports: Hx Asthma - DAILY MEDS, Hx COPD Denies: Hx Bronchitis, Hx Pneumonia, Hx Tuberculosis Neurological Medical History: Denies: Hx Cerebrovascular Accident, Hx Seizures Endocrine Medical History: Denies: Hx Diabetes Mellitus Type 1, Hx Diabetes Mellitus Type 2, Hx Hyperthyroidism, Hx Hypothyroidism Renal/ Medical History: Reports: Hx Kidney Stones. Denies: Hx Peritoneal Dialysis GI Medical History: Reports: Hx Gastroesophageal Reflux Disease. Denies: Hx Hepatitis, Hx Hiatal Hernia, Hx Ulcer Musculoskeletal Medical History: Reports Hx Arthritis, Reports Hx Fibromyalgia Psychiatric Medical History: Reports: Hx Depression Denies: Hx Bipolar Disorder, Hx Post Traumatic Stress Disorder, Hx Schizophrenia Infectious Medical History: Denies: Hx Hepatitis Past Surgical History: Reports: Hx Cholecystectomy, Hx Kidney (Renal Surgery) - Lithotripsy. Denies: Hx Open Heart Surgery, Hx Pacemaker - Immunizations Hx Diphtheria, Pertussis, Tetanus Vaccination: Yes - 2010 Review of Systems - Review of Systems Constitutional: No symptoms reported. denies: Chills, Fever EENT: No symptoms reported. denies: Blurred vision Cardiovascular: No symptoms reported. denies: Chest pain, Palpitations, Syncope Respiratory: No symptoms reported. denies: Cough, Short of breath Gastrointestinal: No symptoms reported. denies: Diarrhea, Nausea, Vomiting, Black stools, Rectal bleeding Genitourinary: No symptoms reported Male Genitourinary: No symptoms reported Musculoskeletal: Back pain - chronic Skin: No symptoms reported Hematologic/Lymphatic: No symptoms reported Neurological/Psychological: No symptoms reported -: Yes All other systems reviewed and negative Physical Exam - Vital signs Vitals: Temp Pulse Resp BP Pulse Ox 98.5 F 91 16 152/58 H 97 05/01/18 12:35 05/01/18 12:35 05/01/18 12:35 05/01/18 12:35 05/01/18 12:35 Interpretation: Hypertensive - General General appearance: Appears well, Alert - HEENT Head: Normocephalic, Atraumatic Eyes: Normal Pupils: PERRL - Respiratory Respiratory status: No respiratory distress Chest status: Nontender Breath sounds: Normal Chest palpation: Normal - Cardiovascular Rhythm: Regular Heart sounds: Normal auscultation Murmur: No - Abdominal Inspection: Normal Distension: No distension Bowel sounds: Normal Tenderness: Nontender Organomegaly: No organomegaly - Extremities General upper extremity: Normal inspection, Nontender, Normal color, Normal ROM , Normal temperature General lower extremity: Normal inspection, Nontender, Normal color, Normal ROM , Normal temperature, Normal weight bearing. No: Alden's sign - Neurological Neuro grossly intact: Yes Cognition: Normal Orientation: AAOx4 [place] Coma Scale Eye Opening: Spontaneous [place] Coma Scale Verbal: Oriented [place] Coma Scale Motor: Obeys Commands [place] Coma Scale Total: 15 Speech: Normal Motor strength normal: LUE, RUE, LLE, RLE Sensory: Normal - Skin Skin Moisture: Dry Skin Color: Pale Course - Re-evaluation Re-evalutation: 05/01/18 Patient seen and examined, vital signs reviewed, patient appears well, no complaint of any symptoms, his prior blood work from earlier today demonstrate a hemoglobin of 7.6, educated the patient on the risks and benefits of blood transfusion, and that due to the fact he does not have any coronary artery disease, no history of CABG or stenting, that it is not indicated at this time for him to have a blood transfusion, he is hemodynamically stable, and has no specific complaints, denies any complaint of melena, dark stools, or syncopal episodes. He was advised that he needs to follow-up with his primary care physician and will likely need outpatient endoscopy and colonoscopy, his prior labs from April 04, 2018 demonstrated hemoglobin of 8.1, which is relatively stable over the last 4 weeks, I feel the patient can be discharged at this time , and he is advised if he does develop any syncope, lightheadedness, or has any dark stools that he can return to the ED immediately. Patient agreeable on discharge. - Vital Signs Vital signs: Temp Pulse Resp BP Pulse Ox 98.5 F 91 16 152/58 H 97 05/01/18 12:35 05/01/18 12:35 05/01/18 12:35 05/01/18 12:35 05/01/18 12:35 Discharge - Discharge Clinical Impression: Anemia Qualifiers: Anemia type: unspecified type Qualified Code(s): D64.9 - Anemia, unspecified Condition: Good Disposition: HOME, SELF-CARE Instructions: Anemia ([facility]) Additional Instructions: If you develop any chest pain, shortness of breath, or pass out, please return to the emergency department immediately. Please follow-up with her primary care physician as he may need repeat blood work, to follow-up on your anemia. Referrals: SEGUNDO SOLIZ NP [ALLIED HEALTH PROFESSIONAL] - Follow up as needed ALLAN PRICE MD [Primary Care Provider] - Follow up tomorrow (Call for appointment)
== END 2018-05-01 13:01 | disposition home or self-care (01) ==
LOC: ER 12:28
DX: D64.9 Anemia, unspecified (principal); E78.00 Pure hypercholesterolemia, unspecified; Z90.49 Acquired absence of other specified parts of digestive tract
CPT/HCPCS: 99284

== ENCOUNTER → 2018-05-01 | Outpatient (CLI) | payer BC ==
--- NOTE | 2018-05-01 10:29 | RADIOLOGY REPORT (SQ) ---
EXAM DESCRIPTION: ANKLE RIGHT COMPLETE COMPLETED DATE/TIME: 05/01/2018 10:09 am REASON FOR STUDY: NON PRESSURE ULCER WITH FAT LAYER EXPOSED RT ANKLE L97.312 NON-PRS CHRONIC ULCER OF RIGHT ANKLE W FAT LAYER EXP COMPARISON: None. NUMBER OF VIEWS: Three views. TECHNIQUE: AP, lateral, and oblique radiographic images acquired of the right ankle. LIMITATIONS: None. FINDINGS: MINERALIZATION: Normal. BONES: No fracture or dislocation. Calcaneal spurs. JOINTS: No effusions. SOFT TISSUES: There is anterior soft tissue swelling at the ankle. OTHER: No other significant finding. IMPRESSION: Soft tissue swelling with no fracture. Calcaneal spurs. TECHNICAL DOCUMENTATION: JOB ID: [id number] [employer]- All Rights Reserved Reading location - IP/workstation name: [email or web address]
[2018-05-01 10:48] LABS: ABSOLUTE EOSINOPHILS # (AUTO) 0.2 10^3/uL (0.0-0.6); ABSOLUTE LYMPHOCYTES (AUTO) 1.2 10^3/uL (0.5-4.7); ABSOLUTE MONOCYTES (AUTO) 0.5 10^3/uL (0.1-1.4); ABSOLUTE NEUT (AUTO) 3.3 10^3/uL (1.7-8.2); BASOPHILS % (AUTO) 0.4 % (0-2); HEMATOCRIT 24.4 % (37.9-51.0); LYMPHOCYTES % (AUTO) 23.1 % (13-45); MEAN CORPUSCULAR HEMOGLOBIN 22.1 pg (27.0-33.4); MEAN CORPUSCULAR HGB CONC 31.1 g/dL (32.0-36.0); MEAN CORPUSCULAR VOLUME 71 fl (80-97); PLATELET COUNT 140 10^3/uL (150-450); RED BLOOD COUNT 3.43 10^6/uL (4.35-5.55); RED CELL DISTRIBUTION WIDTH 16.2 % (11.5-14.0); SEGMENTED NEUTROPHILS % (AUTO) 64.5 % (42-78); TOTAL CELLS COUNTED % (AUTO) 100 %; WHITE BLOOD COUNT 5.1 10^3/uL (4.0-10.5)
[2018-05-01 10:54] LABS: HEMOGLOBIN 7.6 g/dL (13.5-17.0)
[2018-05-01 11:18] LABS: ALANINE AMINOTRANSFERASE 26 U/L (21-72); ALBUMIN 3.8 g/dL (3.5-5.0); ALKALINE PHOSPHATASE 73 U/L (38-126); ANION GAP 11 (5-19); ASPARTATE AMINO TRANSFERASE 31 U/L (17-59); BILIRUBIN,DIRECT 0.3 mg/dL (0.0-0.4); BILIRUBIN,TOTAL 0.4 mg/dL (0.2-1.3); BLOOD UREA NITROGEN 13 mg/dL (7-20); C-REACTIVE PROTEIN 5.9 mg/L (<10.0); CALCIUM 8.7 mg/dL (8.4-10.2); CARBON DIOXIDE 32 mmol/L (22-30); CHLORIDE 99 mmol/L (98-107); GLUCOSE 108 mg/dL (75-110); POTASSIUM 3.3 mmol/L (3.6-5.0); SODIUM 142.3 mmol/L (137-145); TOTAL PROTEIN 6.3 g/dL (6.3-8.2)
[2018-05-01 11:25] LABS: ERYTHROCYTE SEDIMENTATION RATE 17 mm/hr (0-20)
== END ==
LOC: OD 09:43
PROVIDERS: ATTEND Nurse Practitioner
DX: L97.312 Non-pressure chronic ulcer of right ankle with fat layer exposed (principal); M77.31 Calcaneal spur, right foot
CPT/HCPCS: 36415; 80053; 85025; 85652; 86140

== ENCOUNTER → 2018-05-08 | Outpatient (CLI) | payer BC ==
--- NOTE | 2018-05-09 12:51 | XCELERA REPORT ---
[address] [address] Lower Extremity Venous Evaluation Procedure: A bilateral duplex scan of the lower extremity veins was performed. The evaluation included responses to compression and other maneuvers with patient in the supine and standing positions to assess venous insufficiency. Right Sided Venous Evaluation Deep venous system evaluation shows patent veins with no obstruction , limited significant reflux identified. Saphena Femoral junction: no reflux. Femoral vein reflux: 1.4 second reflux. Greater Saphenous vein, Proximal thigh: reflux: no reflux. Greater Saphenous vein, Distal thigh: reflux: no reflux. Greater Saphenous vein, Proximal below knee: reflux: no reflux. No significant Perforators identified. Left Sided Venous Evaluation Deep venous system evaluatiion shows patent veins with no obstruction or significant reflux identified. Sapheno Femoral junction: no reflux. Femoral vein reflux: none. Greater Saphenous vein, Proximal thigh: reflux: 0.5 seconds, 4.2 mm diameter. Greater Saphenous vein, Distal thigh: reflux: 10.7 seconds.5.7 mm. Greater Saphenous vein, Proximal below knee: reflux: none.. No significant Perforators identified. Interpretation Summary No duplex evidence of DVT or obstruction in the bilateral lower extremities. Limited deep reflux on right, limited superificial reflux on left. As detailed in the interpretation. Name: ALLAN CLINTON Age: 63 yrs Gender: Male : 1955 Patient Status: Outpatient Patient Location: Study Date: 05/08/2018 01:42 PM Reason For Study: ULCER Ordering Physician: SGEUNDO SOLIZ Performed By: William Hilliard : SEGUNDO SOLIZ > Sekou Yanes
--- NOTE | 2018-05-09 20:56 | XCELERA REPORT ---
[address] [address] Lower Extremity Arterial Evaluation Name: ALLAN CLINTON Age: 63 yrs Gender: Male : 1955 Patient Status: Outpatient Patient Location: Study Date: 05/08/2018 01:05 PM Procedure: A color flow and duplex scan of the lower extremity arteries was performed bilaterally with velocity and waveform anaylsis. Ankle brachial indicies performed. Reason For Study: ULCER Ordering Physician: SEGUNDO SOLIZ Performed By: William Hilliard Measurements and Calculations Right Left JEWELRY MAKER PSV 199.8 251.4 cm/sec Prox PFA PSV -324.8 -207.7cm/sec Prox SFA PSV 228.8 241.3 cm/sec Mid SFA PSV -171.9 -191.5cm/sec Dist SFA PSV -174.0 -159.5cm/sec Prox Pop A PSV 150.9 171.1 cm/sec Dist DIANELYS PSV 161.1 118.2 cm/sec Dist FISHERIES INSPECTOR PSV 146.9 148.0 cm/sec Chidi Pedis PSV 82.1 120.7 cm/sec Right Side Arterial Evaluation Normal velocity and triphasic waveforms noted from the Common Femoral artery to the Anterior Tibial. Biphasic in Posterior tibial. Deep Femoral artery with normal waveform, elevated velocity. 20--49 % stenosis at the Deep femoral artery. Based on increased velocity. Sequential changes as noted. Ankle Brachial index is 1.47. Left Side Arterial Evaluation Normal velocity and triphasic waveforms noted from the Common Femoral artery to the Popliteal. Biphasic with well preserved velocities in the infrageniculate vessels. 0-19% stenosis at the infrageniculate vessels. Ankle Brachial index is 1.4. Interpretation Summary Mild hemodynamically significant lesions in the bilateral lower extremities, on duplex imaging, at rest. Multilevel findings on the right. distal on left.. : SEGUNDO SOLIZ > Sekou Yanes
== END ==
LOC: SP 12:10
PROVIDERS: ATTEND Nurse Practitioner
DX: L97.312 Non-pressure chronic ulcer of right ankle with fat layer exposed (principal)
CPT/HCPCS: 93922; 93925; 93970

== ENCOUNTER 2018-11-17 05:16 | Emergency (ER) | payer BC ==
[2018-11-17] MEDS ORDERED: KETOROLAC TROMETHAMINE INJ/PF 30 MG/1 ML SDV IV ONE (08:52)
[2018-11-17] MEDS ORDERED: LIDOCAINE 5% (700 MG) TRANSDERMAL ADH..PATCH TP ONE (08:53)
--- NOTE | 2018-11-17 09:03 | ER Document Report ---
HPI - HPI Patient complains to provider of: fall/ LBP Time Seen by Provider: 11/17/18 08:00 Pain Level: 5 Context: 53 male with chronic lower back pain on workman's compensation since the year 1999 who has a history of bilateral lower extremity numbness and weakness in his legs presents for acute lower back pain that started this morning. Per , she has slightly reduced his pain regimen and he is in excruciating pain currently. He denies any urinary retention, denies bowel incontinence, denies fevers or chills, no other complaints. He states he gets these exacerbations about once a year. Past Medical History - Social History Smoking Status: Former Smoker Family History: CAD, Hypertension, Other Patient has suicidal ideation: No Patient has homicidal ideation: No - Past Medical History Cardiac Medical History: Reports: Hx Hypercholesterolemia, Hx Heart Murmur Denies: Hx Coronary Artery Disease, Hx Heart Attack, Hx Hypertension Pulmonary Medical History: Reports: Hx Asthma - DAILY MEDS, Hx COPD Denies: Hx Bronchitis, Hx Pneumonia, Hx Tuberculosis Neurological Medical History: Denies: Hx Cerebrovascular Accident, Hx Seizures Endocrine Medical History: Denies: Hx Diabetes Mellitus Type 1, Hx Diabetes Mellitus Type 2, Hx Hyperthyroidism, Hx Hypothyroidism Renal/ Medical History: Reports: Hx Kidney Stones. Denies: Hx Peritoneal Dialysis GI Medical History: Reports: Hx Gastroesophageal Reflux Disease. Denies: Hx Hepatitis, Hx Hiatal Hernia, Hx Ulcer Musculoskeletal Medical History: Reports Hx Arthritis, Reports Hx Fibromyalgia Psychiatric Medical History: Reports: Hx Depression Denies: Hx Bipolar Disorder, Hx Post Traumatic Stress Disorder, Hx Schizophrenia Infectious Medical History: Denies: Hx Hepatitis Past Surgical History: Reports: Hx Cholecystectomy, Hx Kidney (Renal Surgery) - Lithotripsy. Denies: Hx Open Heart Surgery, Hx Pacemaker - Immunizations Hx Diphtheria, Pertussis, Tetanus Vaccination: Yes - 2010 Vertical Provider Document - CONSTITUTIONAL Notes: PHYSICAL EXAMINATION: Reviewed vital signs and charting by RN GENERAL: Alert, interacts well. acute distress. HEAD: Normocephalic, atraumatic. EYES: Pupils equal, round. Extraocular movements intact. ENT: Oral mucosa moist, tongue midline. NECK: Full range of motion. Supple. Trachea midline. ABDOMEN: soft, non-tender. Non-distended. Bowel sounds present in all 4 quadrants. Patient has a morphine pump in right lower quadrant EXTREMITIES: Moves all 4 extremities spontaneously. No edema, No cyanosis. BACK: no cervical, thoracic, lumbar midline tenderness. No saddle anesthesia, normal distal neurovascular exam. Bilateral lower extremities very dry, appears to have venous stasis NEUROLOGICAL: Alert and oriented x3. Normal speech. - INFECTION CONTROL TRAVEL OUTSIDE OF THE [place] IN LAST 30 DAYS: No Course - Re-evaluation Re-evalutation: 11/17/18 09:01 Patient with chronic pain presents with acute on chronic lower back pain. He is followed by Dr. Fraire out of Dr. Vivas's office. 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 Patient states he frequently has bilateral lower extremity numbness and tingling. Patient endorses it now. We will give him IV Toradol and put him on a short steroid course to relieve this acute back pain. No saddle paresthesia, urinary retention, bowel incontinence. Patient is constipated due to chronic opioid use. 11/17/18 09:56 Patient reported no relief from the Toradol 15 mg IV 1 time. Patient is laying in the bed in acute pain. states that he has not taken his morning dose of pain medications. I told patient and in lieu of his morning oxycodone dosing. I will give him fentanyl 100 mcg IV 1 time to help with the pain. I explained to them that this will only happen one time and he needs to follow-up with his pain management doctor. 11/17/18 10:34 Patient received a fentanyl and reported improved pain control. said he also had a bowel movement but has a large hemorrhoid. I recommended sitz bath's. Patient states he just wants to get some sleep and feels like he is ready to go home. 11/17/18 10:39 - Vital Signs Vital signs: Temp Pulse Resp BP Pulse Ox 97.9 F 73 18 117/64 97 11/17/18 07:47 11/17/18 07:47 11/17/18 07:47 11/17/18 07:47 11/17/18 07:47 Discharge - Discharge Clinical Impression: Lower back pain Qualifiers: Chronicity: acute Back pain laterality: right Sciatica presence: with sciatica Sciatica laterality: bilateral sciatica Qualified Code(s): M54.42 - Lumbago with sciatica, left side; M54.41 - Lumbago with sciatica, right side Chronic pain Qualifiers: Chronic pain type: chronic pain syndrome Qualified Code(s): G89.4 - Chronic pain syndrome Hemorrhoid Qualifiers: Hemorrhoid type: unspecified Qualified Code(s): K64.9 - Unspecified hemorrhoids Condition: Good Disposition: HOME, SELF-CARE Instructions: Ice Packs ([facility]), Low Back Pain ([facility]) Additional Instructions: You have been seen in the Emergency Department (ED) today for back pain. Your workup and exam have not shown any acute abnormalities and you are likely s uffering from muscle strain or possible problems with your discs, but there is no treatment that will fix your symptoms at this time. Please take the naproxen that has been prescribed as directed. You should also purchase a local lidocaine cream such as "aspercreme with lidocaine" and use per bottle instructions to the affected area. Apply heat to the area as often as you are able. Continue to keep active and avoid prolonged periods of bed rest. Please follow up with your doctor as soon as possible regarding today's ED visit and your back pain. Return to the ED for worsening back pain, fever, weakness or numbness of either leg, or if you develop either (1) an inability to urinate or have bowel movements, or (2) loss of your ability to control your bathroom functions (if you start having "accidents"), or if you develop other new symptoms that concern you. Please use the Proctofoam tablets as directed on the package to help with your hemorrhoid. Please follow-up with your primary care doctor to address this. Prescriptions: Methylprednisolone [Medrol Dosepack (4 mg/Tab) 21 Tab/Dosepak] 4 mg PO ASDIR PRN #[id number] PRN Reason: Referrals: ALLAN PRICE MD [Primary Care Provider] - Follow up as needed
[2018-11-17] MEDS ORDERED: FENTANYL CITRATE INJ/PF 100 MCG/2 ML AMPUL IV ONE (09:56)
[2018-11-17 10:46] VITALS: BP 118/67
== END 2018-11-17 10:58 | disposition home or self-care (01) ==
LOC: ER 05:16
DX: M54.42 Lumbago with sciatica, left side (principal); M54.41 Lumbago with sciatica, right side; G89.4 Chronic pain syndrome; K64.9 Unspecified hemorrhoids; R20.0 Anesthesia of skin; M62.81 Muscle weakness (generalized); Z87.891 Personal history of nicotine dependence; J45.909 Unspecified asthma, uncomplicated
CPT/HCPCS: 99283; 96374; 96375; J3010; J1885

== ENCOUNTER 2019-06-08 12:37 | Inpatient (IN) | payer MEDICARE, BC ==
--- NOTE | 2019-06-08 13:10 | ER Document Report ---
ED Medical Screen (RME) - General Chief Complaint: Back Pain Stated Complaint: URINARY PROBLEM,BACK PAIN Time Seen by Provider: 06/08/19 13:10 Primary Care Provider: ALLAN PRICE MD [Primary Care Provider] - Follow up as needed Mode of Arrival: Ambulatory Information source: Patient Notes: Patient is a 64-year-old male presenting to the emergency department chief complaint of right flank pain and hematuria. He states this morning he started passing clots of blood in his urine. Patient believes he may be passing a kidney stone. Patient denies any fevers, nausea or vomiting. He states that he sees [facility] urology. Patient also has a history of bladder cancer. Exam: Right lumbar paraspinous area tenderness, slight right lower quadrant tenderness with palpation. I have greeted and performed a rapid initial assessment of this patient. A comprehensive ED assessment and evaluation of the patient, analysis of test results and completion of the medical decision making process will be conducted by additional ED providers. I have specifically instructed the patient or family members with the patient to immediately return to any nursing staff should anything change in the patient's condition or with their chief complaint. This medical record was dictated with voice recognizing software. There may be grammatical, syntax errors that are unintended. TRAVEL OUTSIDE OF THE [place] IN LAST 30 DAYS: No - Related Data Allergies/Adverse Reactions: Iodinated Contrast Media [IV Dye, Iodine Containing] Allergy (Intermediate, Verified 11/17/18 05:18) Hives Past Medical History - Past Medical History Cardiac Medical History: Reports: Hx Hypercholesterolemia, Hx Heart Murmur Denies: Hx Coronary Artery Disease, Hx Heart Attack, Hx Hypertension Pulmonary Medical History: Reports: Hx Asthma - DAILY MEDS, Hx COPD Denies: Hx Bronchitis, Hx Pneumonia, Hx Tuberculosis Neurological Medical History: Denies: Hx Cerebrovascular Accident, Hx Seizures Endocrine Medical History: Denies: Hx Diabetes Mellitus Type 1, Hx Diabetes Mellitus Type 2, Hx Hyperthyroidism, Hx Hypothyroidism Renal/ Medical History: Reports: Hx Kidney Stones. Denies: Hx Peritoneal Dialysis GI Medical History: Reports: Hx Gastroesophageal Reflux Disease. Denies: Hx Hepatitis, Hx Hiatal Hernia, Hx Ulcer Musculoskeltal Medical History: Reports Hx Arthritis, Reports Hx Fibromyalgia Psychiatric Medical History: Reports: Hx Depression Denies: Hx Bipolar Disorder, Hx Post Traumatic Stress Disorder, Hx Schizophrenia Infectious Medical History: Denies: Hx Hepatitis Past Surgical History: Reports: Hx Cholecystectomy, Hx Kidney (Renal Surgery) - Lithotripsy. Denies: Hx Open Heart Surgery, Hx Pacemaker - Immunizations Hx Diphtheria, Pertussis, Tetanus Vaccination: Yes - 2010 Physical Exam - Vital signs Vitals: Temp Pulse Resp BP Pulse Ox 97.8 F 76 20 145/107 H 95 06/08/19 12:40 06/08/19 12:40 06/08/19 12:40 06/08/19 12:40 06/08/19 12:40 Course - Vital Signs Vital signs: Temp Pulse Resp BP Pulse Ox 97.8 F 76 20 145/107 H 95 06/08/19 12:40 06/08/19 12:40 06/08/19 12:40 06/08/19 12:40 06/08/19 12:40 Doctor's Discharge - Discharge Referrals: ALLAN PRICE MD [Primary Care Provider] - Follow up as needed
[2019-06-08] MEDS ORDERED: MORPHINE SULFATE 10 MG/ML INJ IV ONE (13:15)
[2019-06-08] MEDS ORDERED: KETOROLAC TROMETHAMINE INJ/PF 30 MG/1 ML SDV IV ONE (13:15)
[2019-06-08 13:49] LABS: ABSOLUTE EOSINOPHILS # (AUTO) 0.1 10^3/uL (0.0-0.6); ABSOLUTE LYMPHOCYTES (AUTO) 1.2 10^3/uL (0.5-4.7); ABSOLUTE MONOCYTES (AUTO) 0.7 10^3/uL (0.1-1.4); ABSOLUTE NEUT (AUTO) 5.2 10^3/uL (1.7-8.2); BASOPHILS % (AUTO) 0.3 % (0-2); EOSINOPHILS % (AUTO) 1.8 % (0-6); HEMATOCRIT 33.9 % (37.9-51.0); HEMOGLOBIN 10.7 g/dL (13.5-17.0); LYMPHOCYTES % (AUTO) 16.7 % (13-45); MEAN CORPUSCULAR HEMOGLOBIN 24.1 pg (27.0-33.4); MEAN CORPUSCULAR HGB CONC 31.7 g/dL (32.0-36.0); MEAN CORPUSCULAR VOLUME 76 fl (80-97); MONOCYTES % (AUTO) 9.9 % (3-13); PLATELET COUNT 122 10^3/uL (150-450); RED BLOOD COUNT 4.46 10^6/uL (4.35-5.55); RED CELL DISTRIBUTION WIDTH 17.4 % (11.5-14.0); SEGMENTED NEUTROPHILS % (AUTO) 71.3 % (42-78); TOTAL CELLS COUNTED % (AUTO) 100 %; WHITE BLOOD COUNT 7.3 10^3/uL (4.0-10.5)
[2019-06-08 14:14] LABS: ALBUMIN 3.9 g/dL (3.5-5.0); ALKALINE PHOSPHATASE 90 U/L (38-126); ANION GAP 8 (5-19); ASPARTATE AMINO TRANSFERASE 28 U/L (17-59); BILIRUBIN,DIRECT 0.2 mg/dL (0.0-0.4); BILIRUBIN,TOTAL 0.5 mg/dL (0.2-1.3); BLOOD UREA NITROGEN 32 mg/dL (7-20); CALCIUM 8.9 mg/dL (8.4-10.2); CARBON DIOXIDE 37 mmol/L (22-30); CHLORIDE 96 mmol/L (98-107); GLUCOSE 79 mg/dL (75-110); POTASSIUM 3.3 mmol/L (3.6-5.0); TOTAL PROTEIN 6.8 g/dL (6.3-8.2)
[2019-06-08] MEDS ORDERED: NORMAL SALINE 1000 ML 1,000 ML IV ONE (14:29)
--- NOTE | 2019-06-08 14:29 | ER Document Report ---
ED General - General Chief Complaint: Urinary Problem Stated Complaint: URINARY PROBLEM,BACK PAIN Time Seen by Provider: 06/08/19 13:10 Primary Care Provider: ALLAN PRICE MD [Primary Care Provider] - Follow up as needed Mode of Arrival: Ambulatory TRAVEL OUTSIDE OF THE [place] IN LAST 30 DAYS: No - HPI Notes: Patient is a 64-year-old male that presents to the emergency department for chief complaint of hematuria. Patient states that he began having bright red blood in his urine 3 days ago. He states it was initially intermittent but has become more constant. He denies any associated dysuria. He has been using a urine strainer and states he has noticed blood clots and what appeared to be small stones. Patient denies any associated abdominal pain, nausea or vomiting. He denies any recent fevers or chills. Patient does report low back pain which is chronic and unchanged for him. He does have a history of bladder cancer which required tumor resection and local radiation, he is currently in remission. Past Medical History: Bladder cancer Past Surgical History: Bladder tumor resection Social History: Reviewed in chart Family History: Reviewed and noncontributory for presenting illness Allergies: Reviewed, see documented allergy list. REVIEW OF SYSTEMS: CONSTITUTIONAL : No fever No chills No diaphoresis No recent illness EENT: No vision changes No congestion No sore throat CARDIOVASCULAR: No chest pain No palpitations RESPIRATORY: No shortness of breath No cough No difficulty breathing GASTROINTESTINAL: No abdominal pain No nausea No vomiting No diarrhea GENITOURINARY: No dysuria hematuria No difficulty urinating MUSCULOSKELETAL: back pain No leg pain No arm pain SKIN: No rashes No lesions LYMPHATIC: No swollen, enlarged glands. NEUROLOGICAL: No lightheadedness No headache No weakness No paresthesias PSYCHIATRIC: No anxiety No depression PHYSICAL EXAMINATION: Vital signs reviewed, nursing noted reviewed. GENERAL: Well-appearing, well-nourished and in no acute distress. HEAD: Atraumatic, normocephalic. EYES: Eyes appear normal, extraocular movements intact, sclera anicteric, conjunctiva are normal. ENT: nares patent, oropharynx clear without exudates. Mildly dry mucous membranes. NECK: Normal range of motion, supple without lymphadenopathy LUNGS: Breath sounds clear to auscultation bilaterally and equal. No wheezes rales or rhonchi. HEART: Regular rate and rhythm without murmurs ABDOMEN: Protuberant, soft, nontender, normoactive bowel sounds. No rebound, guarding, or rigidity. No masses appreciated. EXTREMITIES: Nontender, good range of motion, no pitting or edema. NEUROLOGICAL: No focal neurological deficits. Moves all extremities spontaneously Motor and sensory grossly intact on exam. PSYCH: Normal mood, normal affect. SKIN: Warm, Dry, normal turgor, no rashes or lesions noted on exposed skin - Related Data Allergies/Adverse Reactions: Iodinated Contrast Media [IV Dye, Iodine Containing] Allergy (Intermediate, Verified 06/08/19 13:30) Hives Past Medical History - General Information source: Patient - Social History Smoking Status: Never Smoker Chew tobacco use (# tins/day): No Frequency of alcohol use: None Drug Abuse: None Family History: CAD, Hypertension, Other Patient has suicidal ideation: No Patient has homicidal ideation: No - Past Medical History Cardiac Medical History: Reports: Hx Hypercholesterolemia, Hx Heart Murmur Denies: Hx Coronary Artery Disease, Hx Heart Attack, Hx Hypertension Pulmonary Medical History: Reports: Hx Asthma - DAILY MEDS, Hx COPD Denies: Hx Bronchitis, Hx Pneumonia, Hx Tuberculosis Neurological Medical History: Denies: Hx Cerebrovascular Accident, Hx Seizures Endocrine Medical History: Denies: Hx Diabetes Mellitus Type 1, Hx Diabetes Mellitus Type 2, Hx Hyperthyroidism, Hx Hypothyroidism Renal/ Medical History: Reports: Hx Kidney Stones. Denies: Hx Peritoneal Dialysis GI Medical History: Reports: Hx Gastroesophageal Reflux Disease. Denies: Hx Hepatitis, Hx Hiatal Hernia, Hx Ulcer Musculoskeletal Medical History: Reports Hx Arthritis, Reports Hx Fibromyalgia Psychiatric Medical History: Reports: Hx Depression Denies: Hx Bipolar Disorder, Hx Post Traumatic Stress Disorder, Hx Schizophrenia Infectious Medical History: Denies: Hx Hepatitis Past Surgical History: Reports: Hx Cholecystectomy, Hx Kidney (Renal Surgery) - Lithotripsy. Denies: Hx Open Heart Surgery, Hx Pacemaker - Immunizations Hx Diphtheria, Pertussis, Tetanus Vaccination: Yes - 2010 Physical Exam - Vital signs Vitals: Temp Pulse Resp BP Pulse Ox 97.8 F 76 20 145/107 H 95 06/08/19 12:40 06/08/19 12:40 06/08/19 12:40 06/08/19 12:40 06/08/19 12:40 Course - Re-evaluation Re-evalutation: 06/08/19 15:13 Vitals reviewed. Nursing notes reviewed. Patient feels improvement of his back pain since receiving Toradol and morphine in triage. His lab work today shows an anemia with hemoglobin of 10.7, he is not currently requiring blood transfusion but is having bright red blood in his urine with small clots. Chart review shows history of anemia much lower than this. Patient also is in acute renal failure with elevated creatinine at 2.31. He has no history of renal insufficiency. He does have what appears to be a small kidney stone in his lower bladder but there is no signs of obstructive uropathy currently. His renal insufficiency will be treated with IV hydration. Acute UTI treated with IV Rocephin. He is not meeting sepsis criteria and not requiring blood cultures. Mild hypokalemia treated with oral replacement. Patient CT scan also had an incidental finding of esophageal thickening which I did discuss with this patient. Given his history of bladder cancer he should obtain EGD in the near future for further delineation of esophagitis versus neoplasm. Patient currently not having any epigastric symptoms including tenderness in his epigastric region. Although his lipase is elevated today he has no clinical symptoms of pancreatitis. Patient requiring admission for monitoring of his renal failure. Care discussed with Sami FERREIRA who accepts admission. Laboratory 06/08/19 06/08/19 06/08/19 13:40 13:40 14:14 WBC 7.3 RBC 4.46 Hgb 10.7 L Hct 33.9 L MCV 76 L MCH 24.1 L MCHC 31.7 L RDW 17.4 H Plt Count 122 L Lymph % (Auto) 16.7 [place] % (Auto) 9.9 Eos % (Auto) 1.8 Baso % (Auto) 0.3 Absolute Neuts (auto) 5.2 Absolute Lymphs (auto) 1.2 Absolute Monos (auto) 0.7 Absolute Eos (auto) 0.1 Absolute Basos (auto) 0.0 Seg Neutrophils % 71.3 Sodium 140.7 Potassium 3.3 L Chloride 96 L Carbon Dioxide 37 H Anion Gap 8 BUN 32 H Creatinine 2.31 H Est GFR ( Amer) 35 L Est GFR (MDRD) Non-Af 29 L Glucose 79 Calcium 8.9 Total Bilirubin 0.5 Direct Bilirubin 0.2 Neonat Total Bilirubin Not Reportable Neonat Direct Bilirubin Not Reportable Neonat Indirect Bili Not Reportable AST 28 ALT 14 Alkaline Phosphatase 90 Total Protein 6.8 Albumin 3.9 Lipase 1004.8 H Urine Color RED Urine Appearance CLOUDY Urine pH 7.0 Ur Specific Acme 1.010 Urine Protein 30 H Urine Glucose (UA) NEGATIVE Urine Ketones NEGATIVE Urine Blood LARGE H Urine Nitrite NEGATIVE Urine Bilirubin NEGATIVE Urine Urobilinogen NEGATIVE Ur Leukocyte Esterase MODERATE H Urine WBC (Auto) 86 Urine RBC (Auto) >182 Calcium Oxalate Cr Auto MODERATE Urine Ascorbic Acid NEGATIVE Abdomen/Pelvis CT 06/08/19 13:15 IMPRESSION: 1. Right nephrolithiasis. No hydronephrosis. 2 mm calculus at the base of the urinary bladder. 2. Moderate amount of stool at the colon. Please correlate for constipation. 3. Mild splenomegaly. 4. Wall thickening of the distal esophagus, may be seen with esophagitis or neoplasm. Upper endoscopy can help in further evaluation. 06/08/19 15:15 - Vital Signs Vital signs: Temp Pulse Resp BP Pulse Ox 97.8 F 76 20 145/107 H 95 06/08/19 12:40 06/08/19 12:40 06/08/19 12:40 06/08/19 12:40 06/08/19 12:40 - Laboratory Result Diagrams: 06/08/19 13:40 06/08/19 13:40 Laboratory results interpreted by me: 06/08/19 06/08/19 06/08/19 13:40 13:40 14:14 Hgb 10.7 L Hct 33.9 L MCV 76 L MCH 24.1 L MCHC 31.7 L RDW 17.4 H Plt Count 122 L Potassium 3.3 L Chloride 96 L Carbon Dioxide 37 H BUN 32 H Creatinine 2.31 H Est GFR ( Amer) 35 L Est GFR (MDRD) Non-Af 29 L Lipase 1004.8 H Urine Protein 30 H Urine Blood LARGE H Ur Leukocyte Esterase MODERATE H Discharge - Discharge Clinical Impression: Hypokalemia, Elevated blood pressure reading, Elevated lipase, Esophageal thickening Acute renal failure Qualifiers: Acute renal failure type: unspecified Qualified Code(s): N17.9 - Acute kidney failure, unspecified UTI (urinary tract infection) Qualifiers: Urinary tract infection type: acute cystitis Hematuria presence: with hematuria Qualified Code(s): N30.01 - Acute cystitis with hematuria Condition: Stable Disposition: ADMITTED INPATIENT Admitting Provider: HANNA Gill Unit Admitted: Medical Floor Referrals: ALLAN PRICE MD [Primary Care Provider] - Follow up as needed
[2019-06-08 14:31] LABS: APPEARANCE,URINE CLOUDY; BILIRUBIN,URINE NEGATIVE (NEGATIVE); CALCIUM OXALATE CRYSTALS,URINE MODERATE /HPF; COLOR,URINE RED; GLUCOSE, URINE NEGATIVE (NEGATIVE); KETONES,URINE NEGATIVE (NEGATIVE); LEUKOCYTE ESTERASE,URINE MODERATE (NEGATIVE); NITRITE,URINE NEGATIVE (NEGATIVE); PROTEIN,URINE 30 mg/dL (NEGATIVE); UROBILINOGEN,URINE NEGATIVE mg/dL (<2.0)
[2019-06-08] MEDS ORDERED: POTASSIUM CHLORIDE 10 MEQ CAPSULE.ER PO ONE (14:39)
--- NOTE | 2019-06-08 14:50 | RADIOLOGY REPORT (SQ) ---
EXAM DESCRIPTION: CT ABD/PELVIS NO ORAL OR IV COMPLETED DATE/TIME: 06/08/2019 2:15 pm REASON FOR STUDY: R flank pain eval for stone COMPARISON: CT abdomen and pelvis 12/06/2017, 07/02/2017 TECHNIQUE: CT scan of the abdomen and pelvis performed without intravenous or oral contrast. Images reviewed with lung, soft tissue, and bone windows. Reconstructed coronal and sagittal MPR images revi ewed. All images stored on PACS. All CT scanners at this facility use dose modulation, iterative reconstruction, and/or weight based d osing when appropriate to reduce radiation dose to as low as reasonably achievable (ALARA). [facility]: Dose Right [facility]: CareDose [facility]: Dose Right [facility]: Teradose 4D [facility]: [employer] RADIATION DOSE: CT Rad equipment meets quality standard of care and radiation dose reduction techniq ues were employed. CTDIvol: 17.5 mGy. DLP: 857 mGy-cm.mGy. LIMITATIONS: None. FINDINGS: LOWER CHEST: No consolidation or pleural effusion. There is wall thickening of the dista l esophagus. NON-CONTRASTED LIVER, SPLEEN, ADRENALS: Evaluation limited by lack of IV contrast. No identified sign ificant masses. The spleen is mildly enlarged measuring 14.8 cm in craniocaudal diameter. PANCREAS: No peripancreatic inflammatory changes. GALLBLADDER: Surgically absent. RIGHT KIDNEY AND URETER: Assessment for masses limited by lack of IV contrast. Nonobstructing calcu li at the right kidney measuring up to 6 mm (466 Hounsfield units). No hydronephrosis or hydrourete r. LEFT KIDNEY AND URETER: Assessment for masses limited by lack of IV contrast. No significant calcif ications. No hydronephrosis or hydroureter. AORTA AND RETROPERITONEUM: Atherosclerotic calcifications 20 abdominal and its branches. No abdomina l aortic aneurysm. No retroperitoneal masses or hemorrhage. BOWEL AND PERITONEAL CAVITY: No dilated bowel loops or inflammatory changes. No free fluid. Moderate amount of stool at the colon. APPENDIX: Normal. PELVIS, BLADDER, AND ABDOMINAL WALL:The urinary bladder is distended. A 2 mm calcification is noted at the base of the urinary bladder. No pelvic mass. No free fluid. There is a small fat containing umbilical hernia. The battery pack from the TENS stimulator is noted at the anterior right lower ab dominal wall. BONES: Remote compression deformity at L3 vertebral body. The TENS stimulator wire is entering the spinal canal at L2-L3 and extends to T10. IMPRESSION: 1. Right nephrolithiasis. No hydronephrosis. 2 mm calculus at the base of the urinar y bladder. 2. Moderate amount of stool at the colon. Please correlate for constipation. 3. Mild splenomegaly. 4. Wall thickening of the distal esophagus, may be seen with esophagitis or neoplasm. Upper endosco py can help in further evaluation. COMMENT: Quality ID # [id number]: Final reports with documentation of one or more dose reduction techniques (e.g., Automated exposure control, adjustment of the mA and/or kV according to patient size, use of iterative reconstruction technique) TECHNICAL DOCUMENTATION: JOB ID: [id number]- All Rights Reserved Reading location - IP/workstation name: [email or web address]
[2019-06-08] MEDS ORDERED: CEFTRIAXONE INJ 1000 MG VIAL IV ONE (15:10)
[2019-06-08] MEDS ORDERED: DEXTROSE 50%-WATER 25 GM/50 ML DISP.SYRIN IV PRN ×2 (15:37)
[2019-06-08] MEDS ORDERED: DEXTROSE 40% GEL 15 GM TUBE PO PRN ×2 (15:37)
[2019-06-08] MEDS ORDERED: GLUCAGON,HUMAN RECOMB 1 MG INJ SUBCUT PRN (15:37)
[2019-06-08] MEDS ORDERED: ONDANSETRON HCL INJ/PF 4 MG/2 ML SDV IV PRN (15:37)
[2019-06-08] MEDS ORDERED: HEPARIN SOD (PORCINE) 5,000 UNIT/ML 1 ML VIAL SUBCUT SCH (15:45)
--- NOTE | 2019-06-08 16:10 | PDOC H&P ---
History of Present Illness Admission Date/PCP: 06/08/19 15:15 ALLAN PRICE MD Patient complains of: Urinary problems, back pain History of Present Illness: ALLAN CLINTON is a 64 year old male with chief complaint of hematuria. Patient states this began intermittently several days ago but has become more constant. He denies any associated dysuria. Patient has been using a urine strainer states he had noticed blood clots and what appears to be small stones. Patient does have a tendency for kidney stones. Patient reports low back pain which is chronic in nature no change for him and he does have an implanted morphine pump. He does have a history of bladder cancer which required tumor resection and local radiation. He has had no treatment prior to arrival no true aggravating factors. Past Medical History Cardiac Medical History: Reports: Hyperlipidema, Heart Murmur Denies: Coronary Artery Disease, Myocardial Infarction, Hypertension Pulmonary Medical History: Reports: Asthma - DAILY MEDS, Chronic Obstructive Pulmonary Disease (COPD) Denies: Bronchitis, Pneumonia, Tuberculosis Neurological Medical History: Denies: Seizures Endocrine Medical History: Denies: Diabetes Mellitus Type 1, Diabetes Mellitus Type 2, Hyperthyroidism, Hypothyroidism GI Medical History: Reports: Gastroesophageal Reflux Disease Denies: Hepatitis, Hiatal Hernia Musculoskeltal Medical History: Reports: Arthritis, Fibromyalgia Psychiatric Medical History: Reports: Depression Denies: Bipolar Disorder, Post Traumatic Stress Disorder Hematology: Denies: Anemia, Sickle Cell Disease Past Surgical History Past Surgical History: Reports: Cholecystectomy Denies: Pacemaker Social History Information Source: Patient Lives with: Family Smoking Status: Never Smoker Electronic Cigarette use?: No Frequency of Alcohol Use: Occasional Hx Recreational Drug Use: No Drugs: None Hx Prescription Drug Abuse: No - Advance Directive Resuscitation Status: Do Not Resuscitate Family History Family History: CAD, Hypertension, Other Parental Family History Reviewed: Yes Children Family History Reviewed: Yes Sibling(s) Family History Reviewed.: Yes Medication/Allergy Home Medications: Albuterol Sulfate [Proair HFA] 2 puff IH Q4 PRN 07/02/17 Duloxetine HCl [Cymbalta] 30 mg PO Q8 07/02/17 Ergocalciferol (Vitamin D2) [Vitamin D2] 50,000 unit PO [id number] 07/02/17 Esomeprazole Magnesium [Nexium 24Hr] 22.3 mg PO DAILY PRN 07/02/17 Fluticasone/Salmeterol [Advair 250-50 Diskus 28 dose] 1 inh IH DAILYP 07/02/17 Hydroxyzine HCl [Atarax 50 mg Tablet] 50 mg PO Q8HP PRN 07/02/17 Ipratropium/Albuterol Sulfate [Combivent Respimat 4 gm Mdi] 2 puff IH Q6HP PRN 07/02/17 Oxycodone HCl/Acetaminophen [Percocet 7.5-325 mg Tablet] 2 tab PO QID 07/02/17 Pravastatin Sodium [Pravachol] 40 mg PO QAM 07/02/17 Pregabalin [Lyrica] 150 mg PO Q8 07/02/17 Tamsulosin HCl [Flomax 0.4 mg Cap.sr] 0.4 mg PO QAM 07/02/17 Lorazepam [Ativan 0.5 mg Tablet] 0.5 mg PO Q4HP PRN #40 tablet 07/10/17 Besifloxacin HCl [Besivance] 1 drop OP ASDIR 08/02/17 Difluprednate [Durezol] 1 drop OP ASDIR 08/02/17 Docusate Sodium [Colace 100 mg Capsule] 100 mg PO BID PRN 08/02/17 Morphine Pump PUMP DAILY 08/02/17 Nepafenac [Ilevro] 1 drop OP ASDIR 08/02/17 Cyclobenzaprine HCl [Flexeril 5 mg Tablet] 5 mg PO TID #15 tablet 12/06/17 Nitrofurantoin/Nitrofuran Mac [Macrobid 100 mg Capsule] 1 tab PO BID #20 capsule 12/06/17 Methylprednisolone [Medrol Dosepack (4 mg/Tab) 21 Tab/Dosepak] 4 mg PO ASDIR PRN #21 tab.ds.pk 11/17/18 Pramoxine HCl [Prax] 1 each TP ASDIR PRN #30 towelette 11/17/18 Allergies/Adverse Reactions: Iodinated Contrast Media [IV Dye, Iodine Containing] Allergy (Intermediate, Verified 06/08/19 13:30) Hives Review of Systems Constitutional: ABSENT: chills, fever(s), headache(s), weight gain, weight loss Eyes: ABSENT: visual disturbances Ears: ABSENT: hearing changes Cardiovascular: ABSENT: chest pain, dyspnea on exertion, edema, orthropnea, palpitations Respiratory: ABSENT: cough, hemoptysis Gastrointestinal: ABSENT: abdominal pain, constipation, diarrhea, hematemesis, hematochezia, nausea, vomiting Genitourinary: PRESENT: hematuria. ABSENT: dysuria Musculoskeletal: PRESENT: back pain. ABSENT: joint swelling Integumentary: ABSENT: rash, wounds Neurological: ABSENT: abnormal gait, abnormal speech, confusion, dizziness, focal weakness, syncope Psychiatric: ABSENT: anxiety, depression, homidical ideation, suicidal ideation Endocrine: ABSENT: cold intolerance, heat intolerance, polydipsia, polyuria Hematologic/Lymphatic: ABSENT: easy bleeding, easy bruising Physical Exam Vital Signs: Temp Pulse Resp BP Pulse Ox 97.8 F 76 20 145/107 H 95 06/08/19 12:40 06/08/19 12:40 06/08/19 12:40 06/08/19 12:40 06/08/19 12:40 Intake & Output 06/07/19 06/08/19 06/09/19 06:59 06:59 06:59 Weight 103 kg General appearance: PRESENT: no acute distress, well-developed, well-nourished Head exam: PRESENT: atraumatic, normocephalic Eye exam: PRESENT: conjunctiva pink, EOMI, PERRLA. ABSENT: scleral icterus Ear exam: PRESENT: normal external ear exam Mouth exam: PRESENT: moist, tongue midline Neck exam: ABSENT: carotid bruit, JVD, lymphadenopathy, thyromegaly Respiratory exam: PRESENT: clear to auscultation nelsy. ABSENT: rales, rhonchi, wheezes Cardiovascular exam: PRESENT: RRR. ABSENT: diastolic murmur, rubs, systolic murmur Pulses: PRESENT: +1 pedal pulses bilateral Vascular exam: PRESENT: normal capillary refill GI/Abdominal exam: PRESENT: normal bowel sounds, soft. ABSENT: distended, guarding, mass, organolmegaly, rebound, tenderness Extremities exam: PRESENT: +1 edema, other - Beginning stasis ulcer bilateral tremors from the knee down to the ankle Neurological exam: PRESENT: alert, awake, oriented to person, oriented to place, oriented to time, oriented to situation, CN II-XII grossly intact. ABSENT: motor sensory deficit Psychiatric exam: PRESENT: appropriate affect, normal mood. ABSENT: homicidal ideation, suicidal ideation Skin exam: PRESENT: dry, intact, warm. ABSENT: cyanosis, rash Results Laboratory Results: 06/08/19 13:40 06/08/19 13:40 06/08/19 06/08/19 06/08/19 13:40 13:40 14:14 WBC 7.3 RBC 4.46 Hgb 10.7 L Hct 33.9 L MCV 76 L MCH 24.1 L MCHC 31.7 L RDW 17.4 H Plt Count 122 L Seg Neutrophils % 71.3 Sodium 140.7 Potassium 3.3 L Chloride 96 L Carbon Dioxide 37 H Anion Gap 8 BUN 32 H Creatinine 2.31 H Est GFR ( Amer) 35 L Glucose 79 Calcium 8.9 Total Bilirubin 0.5 AST 28 Alkaline Phosphatase 90 Total Protein 6.8 Albumin 3.9 Lipase 1004.8 H Urine Color RED Urine Appearance CLOUDY Urine pH 7.0 Ur Specific [place] 1.010 Urine Protein 30 H Urine Glucose (UA) NEGATIVE Urine Ketones NEGATIVE Urine Blood LARGE H Urine Nitrite NEGATIVE Ur Leukocyte Esterase MODERATE H Urine WBC (Auto) 86 Urine RBC (Auto) >182 Impressions: Abdomen/Pelvis CT 06/08/19 13:15 IMPRESSION: 1. Right nephrolithiasis. No hydronephrosis. 2 mm calculus at the base of the urinary bladder. 2. Moderate amount of stool at the colon. Please correlate for constipation. 3. Mild splenomegaly. 4. Wall thickening of the distal esophagus, may be seen with esophagitis or neoplasm. Upper endoscopy can help in further evaluation. Assessment and Plan - Plan Summary Summary: 06/08/2019- Acute cystitis-admit to medical surgical floor. Rocephin 1 g IV daily. Await culture offending organism may change plan of care as appropriate. Patient does have a history of bladder cancer with bladder resection. If urine becomes bloody or has clots will place patient on continuous bladder irrigation until blood resolves. Anemia-chronic in nature. Most likely microcytic in nature we will obtain iron study. Acute renal failure-most likely secondary to cystitis and pancreatitis. Hydrate patient with normal saline 100 mL an hour overnight. Repeat BMP in a.m. Refer for urology and nephrology as needed. Acute pancreatitis-lipase 1000. N.p.o. Saline hydration. Repeat lipase in a.m. Hypokalemia-potassium 3.3. As of going hydrate patient sufficiently I will give him 2 rounds of 20 mEq K riders. Repeat BMP in a.m. Chronic pain-continue patient's morphine pump we will give him as needed oxycodone at home and 1 mg of Dilaudid IV every 3 as needed for pain while patient has pancreatitis and acute cystitis. - Time Time Spent with patient: 35 or more minutes - Inpatient Certification Based on my medical assessment, after consideration of the patient's comorbidities, presenting symptoms, or acuity I expect that the services needed warrant INPATIENT care.: Yes I certify that my determination is in accordance with my understanding of Medicare's requirements for reasonable and necessary INPATIENT services [42 CFR 412.3e].: Yes Medical Necessity: Other - IV fluids, IV pain control
[2019-06-08] MEDS: POTASSI CL 20 MEQ/50 ML RIDER 20 MEQ/50 ML RTUPB IV SCH ×2 (17:12→20:41)
[2019-06-08] MEDS: PANTOPRAZOLE SODIUM 40 MG VIAL IV SCH (18:07)
[2019-06-09] MEDS: NORMAL SALINE 1000 ML 1,000 ML IV PRN ×2 (04:51→18:45)
[2019-06-09 05:27] LABS: ABSOLUTE RETICS # 0.046 10^6/uL (0.028-0.122); HEMATOCRIT 29.8 % (37.9-51.0); HEMOGLOBIN 9.6 g/dL (13.5-17.0); MEAN CORPUSCULAR HEMOGLOBIN 24.5 pg (27.0-33.4); MEAN CORPUSCULAR HGB CONC 32.3 g/dL (32.0-36.0); MEAN CORPUSCULAR VOLUME 76 fl (80-97); PLATELET COUNT 104 10^3/uL (150-450); RED BLOOD COUNT 3.92 10^6/uL (4.35-5.55); RED CELL DISTRIBUTION WIDTH 17.2 % (11.5-14.0); RETICULOCYTE COUNT (AUTO) 1.17 % (0.66-2.85); WHITE BLOOD COUNT 5.6 10^3/uL (4.0-10.5)
[2019-06-09 05:40] LABS: IRON(TIBC) 46.3 ug/dL (49-181); PHOSPHORUS 4.3 mg/dL (2.5-4.5)
[2019-06-09] MEDS ORDERED: INFLUENZA QUAD (6MOS+) 2019-20 VAC 0.5 ML SYR IM ONE (08:00)
--- NOTE | 2019-06-09 09:49 | PDOC PROGRESS REPORT ---
Subjective Progress Note for:: 06/09/19 Subjective:: 06/09/2019-no complaints this a.m. other than hunger Reason For Visit: CYSTITIS, ACUTE PANCREATITIS Physical Exam Vital Signs: Temp Pulse Resp BP Pulse Ox 97.6 F 67 16 124/69 94 06/09/19 08:06 06/09/19 08:06 06/09/19 08:06 06/09/19 08:06 06/09/19 08:06 Intake & Output 06/08/19 06/09/19 06/10/19 06:59 06:59 06:59 Intake Total 1100 Output Total 1400 Balance -300 Weight 102.6 kg General appearance: PRESENT: no acute distress, well-developed, well-nourished Neck exam: ABSENT: carotid bruit, JVD, lymphadenopathy, thyromegaly Respiratory exam: PRESENT: clear to auscultation nelsy. ABSENT: rales, rhonchi, wheezes Cardiovascular exam: PRESENT: RRR. ABSENT: diastolic murmur, rubs, systolic murmur Pulses: PRESENT: +1 pedal pulses bilateral Vascular exam: PRESENT: normal capillary refill GI/Abdominal exam: PRESENT: hypoactive bowel sounds, soft Extremities exam: PRESENT: pedal edema, +1 edema, other - Beginning venous sta sis ulcers on bilateral lower extremities Neurological exam: PRESENT: alert, awake, oriented to person, oriented to place, oriented to time, oriented to situation, CN II-XII grossly intact. ABSENT: motor sensory deficit Psychiatric exam: PRESENT: appropriate affect, normal mood. ABSENT: homicidal ideation, suicidal ideation Skin exam: PRESENT: dry, intact, warm, other - Beginning stasis ulcer bilateral extremity. ABSENT: cyanosis, rash Results Laboratory Results: 06/09/19 04:25 06/08/19 13:40 06/08/19 06/08/19 06/08/19 13:40 13:40 14:14 WBC 7.3 RBC 4.46 Hgb 10.7 L Hct 33.9 L MCV 76 L MCH 24.1 L MCHC 31.7 L RDW 17.4 H Plt Count 122 L Seg Neutrophils % 71.3 Retic Count (auto) Sodium 140.7 Potassium 3.3 L Chloride 96 L Carbon Dioxide 37 H Anion Gap 8 BUN 32 H Creatinine 2.31 H Est GFR ( Amer) 35 L Glucose 79 Calcium 8.9 Phosphorus Magnesium Iron TIBC % Saturation Ferritin Total Bilirubin 0.5 AST 28 Alkaline Phosphatase 90 Total Protein 6.8 Albumin 3.9 Lipase 1004.8 H Vitamin B12 Folate Urine Color RED Urine Appearance CLOUDY Urine pH 7.0 Ur Specific [place] 1.010 Urine Protein 30 H Urine Glucose (UA) NEGATIVE Urine Ketones NEGATIVE Urine Blood LARGE H Urine Nitrite NEGATIVE Ur Leukocyte Esterase MODERATE H Urine WBC (Auto) 86 Urine RBC (Auto) >182 06/09/19 06/09/19 04:25 04:25 WBC 5.6 RBC 3.92 L Hgb 9.6 L Hct 29.8 L MCV 76 L MCH 24.5 L MCHC 32.3 RDW 17.2 H Plt Count 104 L Seg Neutrophils % Retic Count (auto) 1.17 Sodium Potassium Chloride Carbon Dioxide Anion Gap BUN Creatinine Est GFR ( Amer) Glucose Calcium Phosphorus 4.3 Magnesium 2.4 H Iron 46.3 L TIBC 397 % Saturation 12 Ferritin 10.40 L Total Bilirubin AST Alkaline Phosphatase Total Protein Albumin Lipase 156.5 Vitamin B12 197.0 L Folate 11.40 Urine Color Urine Appearance Urine pH Ur Specific [place] Urine Protein Urine Glucose (UA) Urine Ketones Urine Blood Urine Nitrite Ur Leukocyte Esterase Urine WBC (Auto) Urine RBC (Auto) Impressions: Abdomen/Pelvis CT 06/08/19 13:15 IMPRESSION: 1. Right nephrolithiasis. No hydronephrosis. 2 mm calculus at the base of the urinary bladder. 2. Moderate amount of stool at the colon. Please correlate for constipation. 3. Mild splenomegaly. 4. Wall thickening of the distal esophagus, may be seen with esophagitis or neoplasm. Upper endoscopy can help in further evaluation. Assessment and Plan - Plan Summary Summary: 06/08/2019- Acute cystitis-admit to medical surgical floor. Rocephin 1 g IV daily. Await culture offending organism may change plan of care as appropriate. Patient does have a history of bladder cancer with bladder resection. If urine becomes bloody or has clots will place patient on continuous bladder irrigation until blood resolves. Anemia-chronic in nature. Most likely microcytic in nature we will obtain iron study. Acute renal failure-most likely secondary to cystitis and pancreatitis. Hydrate patient with normal saline 100 mL an hour overnight. Repeat BMP in a.m. Refer for urology and nephrology as needed. Acute pancreatitis-lipase 1000. N.p.o. Saline hydration. Repeat lipase in a.m. Hypokalemia-potassium 3.3. As of going hydrate patient sufficiently I will give him 2 rounds of 20 mEq K riders. Repeat BMP in a.m. Chronic pain-continue patient's morphine pump we will give him as needed oxycodone at home and 1 mg of Dilaudid IV every 3 as needed for pain while patient has pancreatitis and acute cystitis. 06/09/2019- Acute cystitis-continue Rocephin. Await culture offending organism. Patient states that his hematuria has cleared up at this time. Anemia-chronic in nature looks to be iron deficiency. Will start patient on ferrous sulfate 325 mg p.o. daily Acute renal failure-awaiting a.m. labs. Will make change plan of care once he returns. Acute pancreatitis-lipase down to 156. Clear liquid advance as tolerated. Hypokalemia-awaiting a.m. labs as appropriate. Chronic pain-stable no pain this a.m. continue current therapy. - Time Time Spent with patient: 15-24 minutes - Inpatient Certification Based on my medical assessment, after consideration of the patient's comorbidities, presenting symptoms, or acuity I expect that the services needed warrant INPATIENT care.: Yes I certify that my determination is in accordance with my understanding of Medicare's requirements for reasonable and necessary INPATIENT services [42 CFR 412.3e].: Yes Medical Necessity: Other - IV antibiotics, IV pain control
[2019-06-09] MEDS: PANTOPRAZOLE SODIUM 40 MG VIAL IV SCH ×2 (11:29→22:13)
[2019-06-09] MEDS: HYDROMORPHONE HCL INJ/PF 2 MG/ML AMPULE IV PRN (11:30)
[2019-06-09] MEDS ORDERED: IBUPROFEN 800 MG TABLET PO PRN (11:30)
[2019-06-09] MEDS: FERROUS SULFATE 325 MG TABLET PO SCH (11:31)
[2019-06-09] MEDS: CEFTRIAXONE 1 GM/D5W RTU 1 GM/50 ML RTUPB IV SCH (11:31)
[2019-06-09] MEDS ORDERED: (PENDING PHARMACY ID) (Pravastatin Sodium [Pravachol] 40 MG) PO SCH (11:45)
[2019-06-09] MEDS ORDERED: OXYCODONE HCL PO SCH ×3 (11:45→22:00)
[2019-06-09] MEDS ORDERED: ACETAMINOPHEN PO SCH ×3 (11:45→22:00)
[2019-06-09] MEDS: TAMSULOSIN HCL 0.4 MG CAP.SR.24H PO SCH (12:58)
[2019-06-09] MEDS ORDERED: PREGABALIN 100 MG CAPSULE PO SCH (14:00)
[2019-06-09] MEDS: DULOXETINE HCL 30 MG CAPSULE.DR PO SCH ×2 (14:02→22:12)
[2019-06-09] MEDS: HYDROXYZINE HCL 10 MG TABLET PO SCH ×2 (14:03→22:10)
[2019-06-09] MEDS: PREGABALIN 75 MG CAPSULE PO SCH ×2 (14:03→22:10)
[2019-06-09] MEDS ORDERED: (PENDING PHARMACY ID) (Oxycodone Hcl/Acetaminophen [Percocet 7.5-325 Mg Tablet] 1 TAB) PO SCH (15:00)
[2019-06-09 15:30] LABS: ANION GAP 6 (5-19); BLOOD UREA NITROGEN 25 mg/dL (7-20); CALCIUM 8.1 mg/dL (8.4-10.2); CARBON DIOXIDE 32 mmol/L (22-30); CHLORIDE 102 mmol/L (98-107); GLUCOSE 137 mg/dL (75-110); POTASSIUM 3.5 mmol/L (3.6-5.0)
[2019-06-09] MEDS: OXYCODONE HCL IR 5 MG TABLET PO SCH ×3 (15:58→22:11)
[2019-06-09] MEDS: OXYCODONE-ACETAMINOPHEN 5-325 MG TABLET PO SCH ×3 (15:59→22:12)
[2019-06-09] MEDS: ATORVASTATIN CALCIUM 10 MG TABLET PO SCH (22:12)
[2019-06-10] MEDS: PREGABALIN 75 MG CAPSULE PO SCH ×3 (05:17→21:07)
[2019-06-10] MEDS: DULOXETINE HCL 30 MG CAPSULE.DR PO SCH ×3 (05:17→21:07)
[2019-06-10] MEDS: HYDROXYZINE HCL 10 MG TABLET PO SCH ×3 (05:18→21:09)
[2019-06-10] MEDS: NORMAL SALINE 1000 ML 1,000 ML IV PRN ×2 (05:18→15:03)
[2019-06-10] MEDS: HYDROMORPHONE HCL INJ/PF 2 MG/ML AMPULE IV PRN (05:27)
[2019-06-10 06:59] LABS: HEMATOCRIT 30.8 % (37.9-51.0); MEAN CORPUSCULAR HEMOGLOBIN 24.6 pg (27.0-33.4); MEAN CORPUSCULAR HGB CONC 32.3 g/dL (32.0-36.0); MEAN CORPUSCULAR VOLUME 76 fl (80-97); PLATELET COUNT 104 10^3/uL (150-450); RED BLOOD COUNT 4.04 10^6/uL (4.35-5.55); RED CELL DISTRIBUTION WIDTH 17.5 % (11.5-14.0)
[2019-06-10] MEDS: TAMSULOSIN HCL 0.4 MG CAP.SR.24H PO SCH (08:01)
[2019-06-10] MEDS: OXYCODONE HCL IR 5 MG TABLET PO SCH ×4 (08:01→21:07)
[2019-06-10] MEDS: OXYCODONE-ACETAMINOPHEN 5-325 MG TABLET PO SCH ×4 (08:02→21:07)
[2019-06-10] MEDS: CEFTRIAXONE 1 GM/D5W RTU 1 GM/50 ML RTUPB IV SCH (10:40)
[2019-06-10] MEDS: FERROUS SULFATE 325 MG TABLET PO SCH (10:40)
[2019-06-10] MEDS: PANTOPRAZOLE SODIUM 40 MG VIAL IV SCH ×2 (10:40→21:06)
--- NOTE | 2019-06-10 16:18 | PDOC PROGRESS REPORT ---
Subjective Progress Note for:: 06/10/19 Subjective:: No acute event overnight. Currently on clear liquid diet. He says he continues to feel better. Will advance diet to regular one today. Possible discharge in the next 24 hours. Reason For Visit: CYSTITIS, ACUTE PANCREATITIS Physical Exam Vital Signs: Temp Pulse Resp BP Pulse Ox 97.3 F 61 16 129/64 H 97 06/10/19 11:40 06/10/19 11:40 06/10/19 11:40 06/10/19 11:40 06/10/19 11:40 Intake & Output 06/09/19 06/10/19 06/11/19 06:59 06:59 06:59 Intake Total 1100 3625 1290 Output Total 1400 2150 420 Balance -300 1475 870 Weight 226 lb 3.108 oz 225 lb 1.471 oz General appearance: PRESENT: no acute distress, well-developed, well-nourished Head exam: PRESENT: atraumatic, normocephalic Eye exam: PRESENT: conjunctiva pink, EOMI, PERRLA. ABSENT: scleral icterus Ear exam: PRESENT: normal external ear exam Mouth exam: PRESENT: moist, tongue midline Neck exam: ABSENT: carotid bruit, JVD, lymphadenopathy, thyromegaly Respiratory exam: PRESENT: clear to auscultation nelsy. ABSENT: rales, rhonchi, wheezes Cardiovascular exam: PRESENT: RRR. ABSENT: diastolic murmur, rubs, systolic murmur Pulses: PRESENT: normal dorsalis pedis pul GI/Abdominal exam: PRESENT: normal bowel sounds, soft. ABSENT: distended, guarding, mass, organolmegaly, rebound, tenderness Rectal exam: PRESENT: deferred Extremities exam: PRESENT: full ROM. ABSENT: calf tenderness, clubbing, pedal edema Neurological exam: PRESENT: alert, awake, oriented to person, oriented to place, oriented to time, oriented to situation, CN II-XII grossly intact. ABSENT: motor sensory deficit Results Laboratory Results: 06/10/19 05:12 06/09/19 15:00 06/10/19 05:12 WBC 5.0 RBC 4.04 L Hgb 10.0 L Hct 30.8 L MCV 76 L MCH 24.6 L MCHC 32.3 RDW 17.5 H Plt Count 104 L 06/08/19 15:31 Clean Catch Midstream Urine Culture - Final Escherichia Coli Impressions: Abdomen/Pelvis CT 06/08/19 13:15 IMPRESSION: 1. Right nephrolithiasis. No hydronephrosis. 2 mm calculus at the base of the urinary bladder. 2. Moderate amount of stool at the colon. Please correlate for constipation. 3. Mild splenomegaly. 4. Wall thickening of the distal esophagus, may be seen with esophagitis or neoplasm. Upper endoscopy can help in further evaluation. Assessment and Plan - Diagnosis (1) Acute pancreatitis Is this a current diagnosis for this admission?: Yes Plan: Improving. Advance diet to solid one today. (2) Acute renal failure Qualifiers: Acute renal failure type: unspecified Qualified Code(s): N17.9 - Acute kid allen failure, unspecified Is this a current diagnosis for this admission?: Yes Plan: Improving with IV fluids. (4) COPD (chronic obstructive pulmonary disease) Qualifiers: COPD type: COPD with acute exacerbation Qualified Code(s): J44.1 - Chronic obstructive pulmonary disease with (acute) exacerbation Is this a current diagnosis for this admission?: Yes (6) UTI (urinary tract infection) Qualifiers: Urinary tract infection type: acute cystitis Hematuria presence: with hematuria Qualified Code(s): N30.01 - Acute cystitis with hematuria Is this a current diagnosis for this admission?: Yes Plan: Continue Rocephin.
[2019-06-10 17:41] LABS: ANION GAP 9 (5-19); BLOOD UREA NITROGEN 21 mg/dL (7-20); CALCIUM 8.5 mg/dL (8.4-10.2); CARBON DIOXIDE 31 mmol/L (22-30); CHLORIDE 103 mmol/L (98-107); GLUCOSE 85 mg/dL (75-110); POTASSIUM 3.6 mmol/L (3.6-5.0)
[2019-06-10] MEDS: ATORVASTATIN CALCIUM 10 MG TABLET PO SCH (21:07)
[2019-06-11] MEDS: PREGABALIN 75 MG CAPSULE PO SCH (05:13)
[2019-06-11] MEDS: DULOXETINE HCL 30 MG CAPSULE.DR PO SCH (05:13)
[2019-06-11] MEDS: HYDROXYZINE HCL 10 MG TABLET PO SCH (05:13)
[2019-06-11] MEDS: NORMAL SALINE 1000 ML 1,000 ML IV PRN ×2 (05:15→08:31)
[2019-06-11 06:16] LABS: HEMOGLOBIN 9.5 g/dL (13.5-17.0); MEAN CORPUSCULAR HEMOGLOBIN 24.8 pg (27.0-33.4); MEAN CORPUSCULAR HGB CONC 32.6 g/dL (32.0-36.0); MEAN CORPUSCULAR VOLUME 76 fl (80-97); RED BLOOD COUNT 3.82 10^6/uL (4.35-5.55); RED CELL DISTRIBUTION WIDTH 17.7 % (11.5-14.0); WHITE BLOOD COUNT 5.2 10^3/uL (4.0-10.5)
[2019-06-11 06:39] LABS: ANION GAP 7 (5-19); BLOOD UREA NITROGEN 18 mg/dL (7-20); CALCIUM 8.2 mg/dL (8.4-10.2); CARBON DIOXIDE 29 mmol/L (22-30); CHLORIDE 106 mmol/L (98-107); GLUCOSE 89 mg/dL (75-110); POTASSIUM 3.4 mmol/L (3.6-5.0)
[2019-06-11 06:40] LABS: PLATELET COUNT 99 10^3/uL (150-450)
[2019-06-11] MEDS: TAMSULOSIN HCL 0.4 MG CAP.SR.24H PO SCH (08:30)
[2019-06-11] MEDS: OXYCODONE-ACETAMINOPHEN 5-325 MG TABLET PO SCH (08:30)
[2019-06-11] MEDS: OXYCODONE HCL IR 5 MG TABLET PO SCH (08:31)
[2019-06-11] MEDS ORDERED: POTASSIUM CHLORIDE 10 MEQ CAPSULE.ER PO ONE (09:30)
[2019-06-11] MEDS: PANTOPRAZOLE SODIUM 40 MG VIAL IV SCH (11:06)
[2019-06-11] MEDS: FERROUS SULFATE 325 MG TABLET PO SCH (11:06)
[2019-06-11] MEDS: CEFTRIAXONE 1 GM/D5W RTU 1 GM/50 ML RTUPB IV SCH (11:11)
[2019-06-11 13:09] VITALS: BP 151/68
--- NOTE | 2019-06-12 16:56 | PDOC DISCHARGE SUMMARY ---
Impression - Admit/DC Date/PCP Admission Date/Primary Care Provider: 06/08/19 15:15 ALLAN PRICE MD Discharge Date: 06/11/19 - Discharge Diagnosis (1) Acute pancreatitis Is this a current diagnosis for this admission?: Yes (2) UTI (urinary tract infection) Is this a current diagnosis for this admission?: Yes (3) Acute renal failure Is this a current diagnosis for this admission?: Yes (5) COPD (chronic obstructive pulmonary disease) Is this a current diagnosis for this admission?: Yes - Additional Information Resuscitation Status: Do Not Resuscitate Discharge Diet: As Tolerated Discharge Activity: Activity As Tolerated Referrals: ALLAN PRICE MD [Primary Care Provider] - 06/23/19 3:45 pm (GI APPOINTMENT FOR EGD) JUAN RYDER MD [[facility] MD] - 06/19/19 3:30 pm (APPOINTMENT IS AT [facility] Prescriptions: Amoxicillin/Potassium Clav [Augmentin 500-125 Tablet] 1 each PO BID 7 Days #14 tablet Ferrous Sulfate [Feosol 325 mg Tablet] 325 mg PO DAILY #30 tablet Home Medications: Duloxetine HCl [Cymbalta 30 mg Capsule.dr] 30 mg PO Q8 06/08/19 Hydroxyzine HCl [Atarax 50 mg Tablet] 50 mg PO Q8 06/08/19 Oxycodone HCl/Acetaminophen [Percocet 7.5-325 mg Tablet] 1 tab PO DAILY@1500 06/08/19 Oxycodone HCl/Acetaminophen [Percocet 7.5-325 mg Tablet] 2 tab PO QAM 06/08/19 Oxycodone HCl/Acetaminophen [Percocet 7.5-325 mg Tablet] 2 tab PO QHS 06/08/19 Oxycodone HCl/Acetaminophen [Percocet 7.5-325 mg Tablet] 2 tab PO QPM 06/08/19 Pravastatin Sodium [Pravachol] 40 mg PO QAM 06/08/19 Pregabalin [Lyrica] 150 mg PO Q8 06/08/19 Tamsulosin HCl [Flomax 0.4 mg Cap.sr] 0.4 mg PO QAM 06/08/19 Amoxicillin/Potassium Clav [Augmentin 500-125 Tablet] 1 each PO BID 7 Days #14 tablet 06/11/19 Ferrous Sulfate [Feosol 325 mg Tablet] 325 mg PO DAILY #30 tablet 06/11/19 History of Present Illiness History of Present Illness: Admitting hospitalist's H&P: ALLAN CLINTON is a 64 year old male with chief complaint of hematuria. Patient states this began intermittently several days ago but has become more constant. He denies any associated dysuria. Patient has been using a urine strainer states he had noticed blood clots and what appears to be small stones. Patient does have a tendency for kidney stones. Patient reports low back pain which is chronic in nature no change for him and he does have an implanted morphine pump. He does have a history of bladder cancer which required tumor resection and local radiation. He has had no treatment prior to arrival no true aggravating factors. Hospital Course Hospital Course: This is 64-year-old male who presented with hematuria. He was noted to have acute kidney injury upon presentation. He was also treated for possible pancreatitis. He was initially kept n.p.o. and started on IV fluids. Imaging showed right-sided nephrolithiasis without hydronephrosis or obstruction. Patient says that he discuss a follow-up with a urologist for his nephrolithiasis. Patient clinically improved. His creatinine also improved with IV fluids. He tolerated diet well. His urine culture came back growing pansensitive E. coli. He will be discharged on p.o. Augmentin. He will also follow-up with his PCP repeat BMP. He will closely follow-up as outpatient with his urologist for his nephrolithiasis. He also had an incidental finding of distal esophageal wall thickening. Discussed result with patient and recommended outpatient referral to GI for possible need for EGD. He verbalized understanding. Physical Exam Vital Signs: Temp Pulse Resp BP Pulse Ox 97.5 F 66 16 151/68 H 100 06/11/19 12:15 06/11/19 12:15 06/11/19 12:15 06/11/19 12:15 06/11/19 12:15 Intake & Output 06/11/19 06/12/19 06/13/19 06:59 06:59 06:59 Intake Total 3369 730 Output Total 420 760 Balance 2949 -30 Weight 223 lb 15.834 oz General appearance: PRESENT: no acute distress, well-developed, well-nourished Head exam: PRESENT: atraumatic, normocephalic Eye exam: PRESENT: conjunctiva pink, EOMI, PERRLA. ABSENT: scleral icterus Ear exam: PRESENT: normal external ear exam Mouth exam: PRESENT: moist, tongue midline Neck exam: ABSENT: carotid bruit, JVD, lymphadenopathy, thyromegaly Respiratory exam: PRESENT: clear to auscultation nelsy. ABSENT: rales, rhonchi, wheezes Cardiovascular exam: PRESENT: RRR. ABSENT: diastolic murmur, rubs, systolic mur mur Pulses: PRESENT: normal dorsalis pedis pul GI/Abdominal exam: PRESENT: normal bowel sounds, soft. ABSENT: distended, guarding, mass, organolmegaly, rebound, tenderness Rectal exam: PRESENT: deferred Extremities exam: PRESENT: full ROM. ABSENT: calf tenderness, clubbing, pedal edema Neurological exam: PRESENT: alert, awake, oriented to person, oriented to place, oriented to time, oriented to situation, CN II-XII grossly intact. ABSENT: motor sensory deficit Results Laboratory Results: WBC 5.2 10^3/uL (4.0-10.5) 06/11/19 05:55 RBC 3.82 10^6/uL (4.35-5.55) L 06/11/19 05:55 Hgb 9.5 g/dL (13.5-17.0) L 06/11/19 05:55 Hct 29.0 % (37.9-51.0) L 06/11/19 05:55 MCV 76 fl (80-97) L 06/11/19 05:55 MCH 24.8 pg (27.0-33.4) L 06/11/19 05:55 MCHC 32.6 g/dL (32.0-36.0) 06/11/19 05:55 RDW 17.7 % (11.5-14.0) H 06/11/19 05:55 Plt Count 99 10^3/uL (150-450) L 06/11/19 05:55 Lymph % (Auto) 16.7 % (13-45) 06/08/19 13:40 [place] % (Auto) 9.9 % (3-13) 06/08/19 13:40 Eos % (Auto) 1.8 % (0-6) 06/08/19 13:40 Baso % (Auto) 0.3 % (0-2) 06/08/19 13:40 Reticulocyte # 0.046 10^6/uL (0.028-0.122) 06/09/19 04:25 Absolute Neuts (auto) 5.2 10^3/uL (1.7-8.2) 06/08/19 13:40 Absolute Lymphs (auto) 1.2 10^3/uL (0.5-4.7) 06/08/19 13:40 Absolute Monos (auto) 0.7 10^3/uL (0.1-1.4) 06/08/19 13:40 Absolute Eos (auto) 0.1 10^3/uL (0.0-0.6) 06/08/19 13:40 Absolute Basos (auto) 0.0 10^3/uL (0.0-0.2) 06/08/19 13:40 Seg Neutrophils % 71.3 % (42-78) 06/08/19 13:40 Retic Count (auto) 1.17 % (0.66-2.85) 06/09/19 04:25 Sodium 142.2 mmol/L (137-145) 06/11/19 05:55 Potassium 3.4 mmol/L (3.6-5.0) L 06/11/19 05:55 Chloride 106 mmol/L (98-107) 06/11/19 05:55 Carbon Dioxide 29 mmol/L (22-30) 06/11/19 05:55 Anion Gap 7 (5-19) 06/11/19 05:55 BUN 18 mg/dL (7-20) 06/11/19 05:55 Creatinine 1.41 mg/dL (0.52-1.25) H 06/11/19 05:55 Est GFR ( Amer) > 60 (>60) 06/11/19 05:55 Est GFR (MDRD) Non-Af 50 (>60) L 06/11/19 05:55 Glucose 89 mg/dL (75-110) 06/11/19 05:55 Calcium 8.2 mg/dL (8.4-10.2) L 06/11/19 05:55 Phosphorus 4.3 mg/dL (2.5-4.5) 06/09/19 04:25 Magnesium 2.4 mg/dL (1.6-2.3) H 06/09/19 04:25 Iron 46.3 ug/dL (49-181) L 06/09/19 04:25 TIBC 397 ug/dL (250-450) 06/09/19 04:25 % Saturation 12 % 06/09/19 04:25 Ferritin 10.40 ng/mL (17.9-464.0) L 06/09/19 04:25 Total Bilirubin 0.5 mg/dL (0.2-1.3) 06/08/19 13:40 Direct Bilirubin 0.2 mg/dL (0.0-0.4) 06/08/19 13:40 Neonat Total Bilirubin Not Reportable 06/08/19 13:40 Neonat Direct Bilirubin Not Reportable 06/08/19 13:40 Neonat Indirect Bili Not Reportable 06/08/19 13:40 AST 28 U/L (17-59) 06/08/19 13:40 ALT 14 U/L (<50) 06/08/19 13:40 Alkaline Phosphatase 90 U/L (38-126) 06/08/19 13:40 Total Protein 6.8 g/dL (6.3-8.2) 06/08/19 13:40 Albumin 3.9 g/dL (3.5-5.0) 06/08/19 13:40 Lipase 156.5 U/L (23-300) 06/09/19 04:25 Vitamin B12 197.0 pg/mL (239-931) L 06/09/19 04:25 Folate 11.40 ng/mL (>2.76) 06/09/19 04:25 Urine Color RED 06/08/19 14:14 Urine Appearance CLOUDY 06/08/19 14:14 Urine pH 7.0 (5.0-9.0) 06/08/19 14:14 Ur Specific [place] 1.010 06/08/19 14:14 Urine Protein 30 mg/dL (NEGATIVE) H 06/08/19 14:14 Urine Glucose (UA) NEGATIVE mg/dL (NEGATIVE) 06/08/19 14:14 Urine Ketones NEGATIVE mg/dL (NEGATIVE) 06/08/19 14:14 Urine Blood LARGE (NEGATIVE) H 06/08/19 14:14 Urine Nitrite NEGATIVE (NEGATIVE) 06/08/19 14:14 Urine Bilirubin NEGATIVE (NEGATIVE) 06/08/19 14:14 Urine Urobilinogen NEGATIVE mg/dL (<2.0) 06/08/19 14:14 Ur Leukocyte Esterase MODERATE (NEGATIVE) H 06/08/19 14:14 Urine WBC (Auto) 86 /HPF 06/08/19 14:14 Urine RBC (Auto) >182 /HPF 06/08/19 14:14 Calcium Oxalate Cr Auto MODERATE /HPF 06/08/19 14:14 Urine Ascorbic Acid NEGATIVE (NEGATIVE) 06/08/19 14:14 Impressions: Abdomen/Pelvis CT 06/08/19 13:15 IMPRESSION: 1. Right nephrolithiasis. No hydronephrosis. 2 mm calculus at the base of the urinary bladder. 2. Moderate amount of stool at the colon. Please correlate for constipation. 3. Mild splenomegaly. 4. Wall thickening of the distal esophagus, may be seen with esophagitis or neoplasm. Upper endoscopy can help in further evaluation. Stroke Is this a Stroke Patient?: No Acute Heart Failure - Is this a Heart Failure Patient?: No
== END 2019-06-11 12:42 | disposition home or self-care (01) | DRG 439 ==
LOC: ER 12:37 → EH 15:15 → 4N 16:16
PROVIDERS: ADMIT Internal Medicine; ATTEND Internal Medicine
DX: K85.90 Acute pancreatitis without necrosis or infection, unspecified (principal); N17.9 Acute kidney failure, unspecified; N30.00 Acute cystitis without hematuria; E87.6 Hypokalemia; J45.909 Unspecified asthma, uncomplicated; E78.00 Pure hypercholesterolemia, unspecified; K21.9 Gastro-esophageal reflux disease without esophagitis; D64.9 Anemia, unspecified; G89.29 Other chronic pain; Z85.51 Personal history of malignant neoplasm of bladder; Z79.891 Long term (current) use of opiate analgesic; Z79.51 Long term (current) use of inhaled steroids; Z79.52 Long term (current) use of systemic steroids; Z79.899 Other long term (current) drug therapy
CPT/HCPCS: 36415; 74176; 80048; 80053; 81001; 82607; 82728; 82746; 83540; 83550; 83690; 83735; 84100; 85025; 85027; 85045; 87086; 87088; 87186; 96365; 96375; 99285; J0696; J1170; J1885; J2270; J3480; J7030; S0164

== ENCOUNTER → 2019-08-01 | Outpatient (CLI) | payer MEDICARE, BC ==
--- NOTE | 2019-08-01 13:47 | RADIOLOGY REPORT (SQ) ---
EXAM DESCRIPTION: KUB/ABDOMEN (SINGLE VIEW) COMPLETED DATE/TIME: 08/01/2019 12:40 pm REASON FOR STUDY: POST OP KUB URETERAL STONE COMPARISON: CT abdomen pelvis 06/08/2019 NUMBER OF VIEWS: One view. TECHNIQUE: Supine radiographic image of the abdomen acquired. LIMITATIONS: None. FINDINGS: BOWEL GAS PATTERN: Normal bowel gas pattern. No dilated loops. Moderate stool in the asce nding colon CALCIFICATIONS: Distal right ureteral calculus seen on CT 06/08/2019 is no longer identified. There are multiple small right mid and lower pole intrarenal stones, left lower pole intrarenal stone . No stones over the expected course of the left ureter. SOFT TISSUES: No gross mass or suggestion of organomegaly. HARDWARE: Right-sided double-J stent in good positioning Old pain management baclofen pump over the right lower quadrant, tubing over the spinal canal BONES: Degenerative convex leftward lumbar curvature OTHER: Clips right upper quadrant post cholecystectomy IMPRESSION: Right double-J stent in good positioning. Distal right ureteral calculus seen on CT exa m 06/08/2019 is no longer identified TECHNICAL DOCUMENTATION: JOB ID: [id number]- All Rights Reserved Reading location - IP/workstation name: [email or web address]
== END ==
LOC: RAD 12:14
PROVIDERS: ATTEND Urology
DX: N20.1 Calculus of ureter (principal)
CPT/HCPCS: 74018

== ENCOUNTER → 2019-09-08 | Outpatient (CLI) | payer MEDICARE, BC ==
--- NOTE | 2019-09-08 11:57 | RADIOLOGY REPORT (SQ) ---
EXAM DESCRIPTION: KUB/ABDOMEN (SINGLE VIEW) COMPLETED DATE/TIME: 09/08/2019 11:25 am REASON FOR STUDY: NEPHROLITHIASIS (N20.0), RIGHT URETERAL CALCULUS (N20.1) N20.0 CALCULUS OF KIDNEY N39.0 URINARY TRACT INFECTION, SITE NOT SPECIFIED COMPARISON: 08/01/2019 NUMBER OF VIEWS: One view. TECHNIQUE: Supine radiographic image of the abdomen acquired. LIMITATIONS: None. FINDINGS: BOWEL GAS PATTERN: Normal bowel gas pattern. No dilated loops. CALCIFICATIONS: Previously seen right-sided renal stones are not well appreciated on this exam, possi vinny secondary to overlying bowel gas. No definite stones overlie kidneys or ureters. Scattered pelv ic phleboliths. SOFT TISSUES: No gross mass or suggestion of organomegaly. HARDWARE: There has been removal of the previously seen right double-J ureteral stent. Partially vis ualized right sided spinal stimulator. Prior cholecystectomy. BONES: Thoracolumbar spondylosis with levoconvex curvature of the lumbar spine. No acute findings. OTHER: No other significant finding. IMPRESSION: 1. Previously seen right-sided renal stones are not well appreciated on this exam. No definite radiopaque stones overlie kidneys or ureters. 2. No other evidence of acute intra-abdominal/pelvic process. TECHNICAL DOCUMENTATION: JOB ID: [id number] [employer]- All Rights Reserved Reading location - IP/workstation name: [email or web address]
--- NOTE | 2019-09-08 13:22 | RADIOLOGY REPORT (SQ) ---
EXAM DESCRIPTION: U/S RETROPERITON (RENAL/AORTA) COMPLETED DATE/TIME: 09/08/2019 11:55 am REASON FOR STUDY: ACUTE UTI (N39.0), BLADDER CALCULUS (N21.0), GROSS HEMATURIA (R31.0), HYDRO N20.0 CALCULUS OF KIDNEY N39.0 URINARY TRACT INFECTION, SITE NOT SPECIFIED COMPARISON: None. TECHNIQUE: Dynamic and static grayscale images acquired of the kidneys and bladder and recorded on P ACS. Additional selected color Doppler and spectral images recorded. LIMITATIONS: None. FINDINGS: RIGHT KIDNEY: The right kidney measures 10.8 cm in length, normal size. A nonobstructing 7 mm calculus is noted. The patient's CT examination dated 06/08/2019 demonstrated right nephrolithi asis. The renal pelvis measures 9 mm in diameter, may be on the basis of extrarenal pelvis. LEFT KIDNEY: The left kidney measures 10.4 cm in length, normal size. Normal echogenicity. No solid or suspicious masses. No hydronephrosis. No calcifications. BLADDER: No masses. OTHER FINDINGS: No other significant finding. IMPRESSION: 1. Nonobstructing right renal calculus. The patient is known to have right nephrolithi asis by the CT examination dated 06/08/2019. TECHNICAL DOCUMENTATION: JOB ID: [id number] [employer]- All Rights Reserved Reading location - IP/workstation name: [email or web address]
== END ==
LOC: RAD 11:08
PROVIDERS: ATTEND Urology
DX: N39.0 Urinary tract infection, site not specified (principal); N21.0 Calculus in bladder; N13.30 Unspecified hydronephrosis; N20.0 Calculus of kidney; N20.1 Calculus of ureter
CPT/HCPCS: 74018; 76770

== ENCOUNTER 2020-05-13 06:46 | Emergency (ER) | payer MEDICARE, BC ==
[2020-05-13] MEDS ORDERED: DIAZEPAM 5 MG TABLET PO ONE (06:50)
[2020-05-13] MEDS ORDERED: KETOROLAC TROMETHAMINE 60 MG/2 ML SDV IM ONE ×2 (06:50→07:55)
--- NOTE | 2020-05-13 06:52 | ER Document Report ---
ED General - General Chief Complaint: Back Pain Stated Complaint: BACK PAIN Time Seen by Provider: 05/13/20 06:47 Primary Care Provider: JUAN RYDER MD [Primary Care Provider] - Follow up as needed Notes: 65-year-old male with degenerative disc disease, history of back surgery chronic back pain with morphine pump intrathecal and chronic oxycodone treatments. He felt ill for the last couple days just general malaise without any specific symptoms and did not take any of his oxycodone. Today he presents with worsening back pain although he did not manage to take the 2 oxycodone prior to getting on the ambulance which brought him here. He is due to show up at his pain clinic yesterday but missed his appointment and they said he could see them a time before Sunday. This is his normal pain just worsening amplitude with no new or concerning symptoms on his part. No fever. TRAVEL OUTSIDE OF THE [place] IN LAST 30 DAYS: No - Related Data Allergies/Adverse Reactions: Iodinated Contrast Media [IV Dye, Iodine Containing] Allergy (Intermediate, Verified 06/08/19 13:30) Hives Past Medical History - General Information source: Patient - Social History Smoking Status: Unknown if Ever Smoked Family History: CAD, Hypertension, Other - Past Medical History Cardiac Medical History: Reports: Hx Hypercholesterolemia, Hx Heart Murmur Denies: Hx Coronary Artery Disease, Hx Heart Attack, Hx Hypertension Pulmonary Medical History: Reports: Hx Asthma - DAILY MEDS, Hx COPD Denies: Hx Bronchitis, Hx Pneumonia, Hx Tuberculosis Neurological Medical History: Denies: Hx Cerebrovascular Accident, Hx Seizures Endocrine Medical History: Denies: Hx Diabetes Mellitus Type 1, Hx Diabetes Mellitus Type 2, Hx Hyperthyroidism, Hx Hypothyroidism Renal/ Medical History: Reports: Hx Kidney Stones. Denies: Hx Peritoneal Dialysis GI Medical History: Reports: Hx Gastroesophageal Reflux Disease. Denies: Hx Hepatitis, Hx Hiatal Hernia, Hx Ulcer Musculoskeletal Medical History: Reports Hx Arthritis, Reports Hx Fibromyalgia Psychiatric Medical History: Reports: Hx Depression Denies: Hx Bipolar Disorder, Hx Post Traumatic Stress Disorder, Hx Schizophrenia Infectious Medical History: Denies: Hx Hepatitis Past Surgical History: Reports: Hx Cholecystectomy, Hx Kidney (Renal Surgery) - Lithotripsy. Denies: Hx Open Heart Surgery, Hx Pacemaker - Immunizations Hx Diphtheria, Pertussis, Tetanus Vaccination: Yes - 2010 Review of Systems - Review of Systems Notes: REVIEW OF SYSTEMS GEN: Denies fever, chills, weight loss ENT: Denies sore throat, nasal discharge, ear pain EYES: Denies blurry vision, eye pain, discharge CV: Denies chest pain, palpitations, edema RESP: Denies cough, shortness of breath, wheezing GI: Denies abdominal pain, nausea, vomiting, diarrhea MSK: Chronic back pain SKIN: Denies rash, skin lesions LYMPH: Denies swollen glands/lymph nodes NEURO: Denies headache, focal weakness or numbness, dizziness PSYCH: Denies depression, suicidal or homicidal ideation PHYSICAL EXAMINATION General: No acute distress, well-nourished Head: Atraumatic, normocephalic ENT: Mouth normal, oropharynx moist, no exudates or tonsillar enlargement Eyes: Conjunctiva normal, pupils equal, lids normal Neck: No JVD, supple, no guarding CVS: Normal rate, regular rhythm, no murmurs Resp: No resp distress, equal and normal breath sounds bilaterally GI: Nondistended, soft, no tenderness to palpation, no rebound or guarding Ext: No deformities, no edema, normal range of motion in upper and lower ext Back: Pain on range of motion. Tenderness throughout the entire back not concentrated on the midline. Patient is able to rise and moving the gurney without apparent severe discomfort. Skin: No rash, warm Lymphatic: No lymphadeopathy noted Neuro: Awake, alert. Face symmetric. GCS 15. Strength and sensation in both legs. Course - Re-evaluation Re-evalutation: 05/13/20 06:51 Acute exacerbation of chronic back pain without red flag symptoms which would mandate imaging today On chronic opioid therapy and intrathecal therapy Offered non-narcotic meds for exacerbation of chronic pain Toradol and Valium were given. Patient was picked up by and will be seen in pain clinic. I have discussed with the patient there likely diagnosis, aftercare plan, follow-up plans and my usual and customary return precautions. They verbalized understanding of this. Discharge - Discharge Clinical Impression: Chronic back pain Qualifiers: Back pain location: low back pain Back pain laterality: bilateral Sciatica presence: without sciatica Qualified Code(s): M54.5 - Low back pain; G89.29 - Other chronic pain Condition: Good Disposition: HOME, SELF-CARE Instructions: Warm Packs ([facility]), Ice Packs ([facility]), Oral Narcotic Medication ([facility]), Low Back Pain ([facility]) Additional Instructions: Please follow-up with your pain doctors today Referrals: JUAN RYDER MD [Primary Care Provider] - Follow up as needed
[2020-05-13 07:21] VITALS: BP 147/78
== END 2020-05-13 07:57 | disposition home or self-care (01) ==
LOC: ER 06:46
DX: G89.29 Other chronic pain (principal); M54.5 Low back pain; E78.00 Pure hypercholesterolemia, unspecified; Z87.442 Personal history of urinary calculi; Z79.891 Long term (current) use of opiate analgesic
CPT/HCPCS: 99284; 96372; A9270; J1885